=== PATIENT | female | born 1930 | race African-American/Black ===

== ENCOUNTER 2019-02-02 06:31 | Inpatient (IN) | payer MEDICARE, MEDICAID ==
[~2019-02-02] VITALS: Ht 165.1 cm; Wt 86.2 kg
[2019-02-02] MEDS ORDERED: SODIUM CHLORIDE 0.9% 1,000 ML IV ONE (06:56)
[2019-02-02] MEDS ORDERED: KETOROLAC 30MG/ML VIAL IV STA (06:56)
[2019-02-02 08:01] LABS: HEMATOCRIT. 34.4 % (36.0-48.0); MEAN CORPUSCULAR HEMOGLOBIN 28.9 pg (28.0-32.0); PLATELET 207 x1000/uL (130-400); RED BLOOD CELL COUNT 3.82 mill/uL (4.2-5.4); RED CELL DISTRIBUTION WIDTH 14.5 % (11.6-14.6)
[2019-02-02 08:05] LABS: CHLORIDE 95 mEq/L (98-107)
[2019-02-02 08:06] LABS: INR 1.1
[2019-02-02 08:14] LABS: CREATINE KINASE 766 IU/L (26-192)
[2019-02-02 08:27] LABS: PLATELET ESTIMATE NORMAL
[2019-02-02] MEDS ORDERED: MORPHINE SULFATE 4 MG/ML CPJ (NOT FOR IM USE) IV ONE (10:00)
[2019-02-02 10:01] LABS: CLARITY URINE CLOUDY (CLEAR); COLOR URINE YELLOW (YELLOW); KETONES URINE NEGATIVE (NEGATIVE); LEUKOCYTE ESTERASE URINE TRACE (NEGATIVE); NITRITE URINE NEGATIVE (NEGATIVE); OCCULT BLOOD URINE 2+ (NEGATIVE); PROTEIN URINE 2+ (NEGATIVE); SPECIFIC GRAVITY URINE 1.016 (1.005-1.030); UROBILINOGEN URINE 0.2 E.U./dL (0.2-1.0)
[2019-02-02] MEDS ORDERED: IPRATROPIUM/ALBUTEROL 0.5-3(2.5)MG/3ML NEB HHN PRN (11:15)
[2019-02-02] MEDS ORDERED: NITROGLYCERIN 0.4MG TABLET SL SL PRN ×2 (11:15→11:30)
[2019-02-02] MEDS ORDERED: GUAIFENESIN 200MG/10ML SUGAR FREE UDC PO PRN (11:15)
[2019-02-02] MEDS ORDERED: LEVOFLOXACIN 500MG PREMIX 100 ML IV SCH (11:15)
[2019-02-02] MEDS ORDERED: DOCUSATE SODIUM 100MG CAPSULE PO PRN (11:15)
[2019-02-02] MEDS ORDERED: ONDANSETRON HCL 4MG/2ML INJ IV PRN (11:15)
[2019-02-02] MEDS ORDERED: MAGNESIUM/ALUMINUM HYDROXIDE/SIMETHICONE 30ML UDC PO PRN (11:15)
[2019-02-02] MEDS ORDERED: DEXTROSE 50% WATER 50ML SYRINGE IV PRN (11:15)
[2019-02-02] MEDS: CEFTRIAXONE 1 G PREMIX 50 ML IV SCH (11:51)
[2019-02-02] MEDS: SODIUM CHLORIDE 0.9% 1,000 ML IV SCH (11:51)
[2019-02-02] MEDS: FAMOTIDINE 20MG TABLET PO SCH (11:55)
[2019-02-02] MEDS: ZINC SULFATE 220 MG ( 50 ) CAPSULE PO SCH (11:55)
[2019-02-02] MEDS: ASPIRIN 325MG EC TABLET PO SCH (11:55)
[2019-02-02] MEDS: ENOXAPARIN 30MG/0.3ML SYR SUBCUT SCH (11:56)
[2019-02-02 12:00] VITALS: BP 135/66
[2019-02-02] MEDS: BLOOD SUGAR DIAGNOSTIC STRIP TEST SCH ×3 (12:40→20:05)
[2019-02-02] MEDS: TRAMADOL 50MG TABLET PO PRN ×2 (12:44→20:06)
[2019-02-02 12:55] LABS: T4 FREE 1.77 ng/dL (0.76-1.46)
[2019-02-02] MEDS ORDERED: LEVOFLOXACIN 500MG PREMIX 100 ML IV NR (13:00)
[2019-02-02] MEDS: INSULIN LISPRO 100 UNITS/ML SUBCUT SCH ×3 (13:10→21:00)
[2019-02-02 14:18] LABS: SODIUM URINE RANDOM 37 mEq/L
[2019-02-02 15:30] VITALS: BP 160/99
[2019-02-02 16:00] VITALS: BP 178/84
[2019-02-02] MEDS ORDERED: ASPI-1393 PO (18:09)
[2019-02-02] MEDS ORDERED: ACET-2708 PO (18:09)
[2019-02-02] MEDS ORDERED: BENA20TA10 PO (18:09)
[2019-02-02] MEDS ORDERED: DOCU-138 PO (18:09)
[2019-02-02] MEDS ORDERED: FERR325T6 PO (18:09)
[2019-02-02] MEDS ORDERED: NIFE60TA64 PO (18:09)
[2019-02-02 18:44] LABS: CREATINE KINASE 607 IU/L (26-192)
[2019-02-02 18:45] LABS: CREATINE KINASE MB FRACTION 12.1 ng/mL (0.5-3.6)
[2019-02-02 19:57] LABS: FOLIC ACID (FOLATE) SERUM 5.9 ng/mL (>5.38)
[2019-02-02 20:00] VITALS: BP 152/70
[2019-02-02] MEDS: ASCORBIC ACID 500 MG TABLET PO SCH (20:06)
[2019-02-03] VITALS: BP 162/74
[2019-02-03 00:19] LABS: CREATINE KINASE 589 IU/L (26-192)
[2019-02-03 00:20] LABS: CREATINE KINASE MB FRACTION 9.9 ng/mL (0.5-3.6)
[2019-02-03 04:00] VITALS: BP 159/91
[2019-02-03] MEDS: SODIUM CHLORIDE 0.9% 1,000 ML IV SCH ×3 (05:18→17:33)
[2019-02-03] MEDS: TRAMADOL 50MG TABLET PO PRN ×3 (05:19→20:05)
[2019-02-03 07:30] LABS: BASOPHILS % 0.5 % (0.0-2.0); EOSINOPHILS % 0.6 % (0.0-5.0); HEMATOCRIT. 32.2 % (36.0-48.0); HEMOGLOBIN. 10.6 g/dL (12.0-16.0); LYMPHOCYTES % 8.1 % (20.0-50.0); MEAN CORPUSCULAR HEMOGLOBIN 29.5 pg (28.0-32.0); MEAN CORPUSCULAR VOLUME 89.7 fL (81.0-99.0); MEAN PLATELET VOLUME 9.1 fl (7.4-10.4); NEUTROPHILS % 83.8 % (40.0-76.0); PLATELET 244 x1000/uL (130-400); RED BLOOD CELL COUNT 3.59 mill/uL (4.2-5.4); RED CELL DISTRIBUTION WIDTH 14.6 % (11.6-14.6)
[2019-02-03 08:00] VITALS: BP 150/66
[2019-02-03] MEDS: BLOOD SUGAR DIAGNOSTIC STRIP TEST SCH ×4 (08:01→20:06)
[2019-02-03] MEDS: INSULIN LISPRO 100 UNITS/ML SUBCUT SCH ×4 (08:01→20:06)
[2019-02-03 08:02] LABS: PHOSPHORUS 3.4 mg/dL (2.5-4.9)
[2019-02-03] MEDS: ASCORBIC ACID 500 MG TABLET PO SCH ×2 (08:46→20:05)
[2019-02-03] MEDS: ZINC SULFATE 220 MG ( 50 ) CAPSULE PO SCH (08:46)
[2019-02-03] MEDS: FAMOTIDINE 20MG TABLET PO SCH (08:46)
[2019-02-03] MEDS: ASPIRIN 325MG EC TABLET PO SCH (08:46)
[2019-02-03] MEDS: ENOXAPARIN 30MG/0.3ML SYR SUBCUT SCH (08:46)
[2019-02-03 12:00] VITALS: BP 182/88
[2019-02-03] MEDS: CEFTRIAXONE 1 G PREMIX 50 ML IV SCH (12:12)
[2019-02-03] MEDS: CLONIDINE 0.1MG TABLET PO PRN ×2 (12:15→20:05)
[2019-02-03 16:22] VITALS: BP 148/61
[2019-02-03 20:00] VITALS: BP 169/67
[2019-02-04 00:05] VITALS: BP 129/71
[2019-02-04 04:00] VITALS: BP 165/79
[2019-02-04] MEDS: CLONIDINE 0.1MG TABLET PO PRN ×2 (05:22→08:15)
[2019-02-04] MEDS: SODIUM CHLORIDE 0.9% 1,000 ML IV SCH (05:22)
[2019-02-04] MEDS: BLOOD SUGAR DIAGNOSTIC STRIP TEST SCH ×4 (05:27→21:07)
[2019-02-04 07:34] LABS: BASOPHILS % 0.6 % (0.0-2.0); EOSINOPHILS % 1.1 % (0.0-5.0); HEMATOCRIT. 32.6 % (36.0-48.0); HEMOGLOBIN. 10.5 g/dL (12.0-16.0); LYMPHOCYTES % 9.9 % (20.0-50.0); MEAN CORPUSCULAR HEMOGLOBIN 29.5 pg (28.0-32.0); MEAN CORPUSCULAR VOLUME 91.6 fL (81.0-99.0); MONOCYTES % 9.7 % (2.0-8.0); NEUTROPHILS % 78.7 % (40.0-76.0); PLATELET 236 x1000/uL (130-400); RED BLOOD CELL COUNT 3.56 mill/uL (4.2-5.4); RED CELL DISTRIBUTION WIDTH 14.5 % (11.6-14.6)
[2019-02-04 07:43] LABS: PHOSPHORUS 2.7 mg/dL (2.5-4.9)
[2019-02-04] MEDS: INSULIN LISPRO 100 UNITS/ML SUBCUT SCH ×4 (08:10→21:00)
[2019-02-04] MEDS: FAMOTIDINE 20MG TABLET PO SCH (08:14)
[2019-02-04] MEDS: ASPIRIN 325MG EC TABLET PO SCH (08:14)
[2019-02-04] MEDS: ENOXAPARIN 30MG/0.3ML SYR SUBCUT SCH (08:14)
[2019-02-04] MEDS: ZINC SULFATE 220 MG ( 50 ) CAPSULE PO SCH (08:15)
[2019-02-04] MEDS: ASCORBIC ACID 500 MG TABLET PO SCH ×2 (08:15→21:07)
[2019-02-04] MEDS ORDERED: NIFEDIPINE XL 60MG TAB PO SCH (09:15)
[2019-02-04] MEDS: NIFEDIPINE XL 60MG TAB PO SCH ×2 (10:00→21:07)
[2019-02-04 10:13] LABS: CREATINE KINASE 291 IU/L (26-192)
[2019-02-04 10:22] VITALS: BP 235/102
[2019-02-04 12:21] VITALS: BP 128/49
[2019-02-04] MEDS ORDERED: LEVOFLOXACIN 250MG PREMIX 50 ML IV SCH (13:00)
[2019-02-04 16:05] VITALS: BP 173/66
[2019-02-04] MEDS: CEFTRIAXONE 1 G PREMIX 50 ML IV SCH (16:15)
[2019-02-04] MEDS ORDERED: NA PHOS,M-B/NA PHOS,DI-BA ENEMA 118ML PR NR (17:30)
[2019-02-04] MEDS: DOCUSATE SODIUM 100MG CAPSULE PO SCH (18:58)
[2019-02-04] MEDS: LACTULOSE 20G/30ML UDC PO SCH ×2 (18:59→21:07)
[2019-02-04 20:00] VITALS: BP 157/63
[2019-02-04] MEDS: ZOLPIDEM TARTRATE 5MG TABLET PO PRN (21:07)
[2019-02-05] VITALS (7 sets, daily range): BP systolic 91–188; BP diastolic 58–85
[2019-02-05] MEDS: CLONIDINE 0.1MG TABLET PO PRN ×2 (00:27→09:13)
[2019-02-05 07:19] LABS: BASOPHILS % 0.3 % (0.0-2.0); EOSINOPHILS % 0.1 % (0.0-5.0); HEMATOCRIT. 32.2 % (36.0-48.0); HEMOGLOBIN. 10.8 g/dL (12.0-16.0); LYMPHOCYTES % 8.8 % (20.0-50.0); MEAN CORPUSCULAR HEMOGLOBIN 29.8 pg (28.0-32.0); MEAN CORPUSCULAR VOLUME 89.1 fL (81.0-99.0); MEAN PLATELET VOLUME 8.4 fl (7.4-10.4); MONOCYTES % 13.2 % (2.0-8.0); NEUTROPHILS % 77.6 % (40.0-76.0); PLATELET 279 x1000/uL (130-400); RED BLOOD CELL COUNT 3.62 mill/uL (4.2-5.4); RED CELL DISTRIBUTION WIDTH 14.4 % (11.6-14.6)
[2019-02-05] MEDS: INSULIN LISPRO 100 UNITS/ML SUBCUT SCH ×4 (08:10→21:00)
[2019-02-05] MEDS: BLOOD SUGAR DIAGNOSTIC STRIP TEST SCH ×4 (08:11→21:34)
[2019-02-05 08:17] LABS: CHLORIDE 105 mEq/L (98-107)
[2019-02-05 08:22] LABS: PHOSPHORUS 2.8 mg/dL (2.5-4.9)
[2019-02-05] MEDS ORDERED: NA PHOS,M-B/NA PHOS,DI-BA ENEMA 118ML PR PRN (09:00)
[2019-02-05] MEDS: POLYETHYLENE GLYCOL 3350 (17GM) 1 DOSE PACK PO SCH (09:05)
[2019-02-05] MEDS: ENOXAPARIN 40MG/0.4ML SYR SUBCUT SCH (09:05)
[2019-02-05] MEDS: LACTULOSE 20G/30ML UDC PO SCH (09:06)
[2019-02-05] MEDS: DOCUSATE SODIUM 100MG CAPSULE PO SCH ×2 (09:07→16:03)
[2019-02-05] MEDS: ZINC SULFATE 220 MG ( 50 ) CAPSULE PO SCH (09:07)
[2019-02-05] MEDS: NIFEDIPINE XL 60MG TAB PO SCH ×2 (09:07→21:33)
[2019-02-05] MEDS: ASPIRIN 325MG EC TABLET PO SCH (09:08)
[2019-02-05] MEDS: ASCORBIC ACID 500 MG TABLET PO SCH ×2 (09:08→21:33)
[2019-02-05] MEDS: FAMOTIDINE 20MG TABLET PO SCH (12:05)
[2019-02-05] MEDS: CEFTRIAXONE 1 G PREMIX 50 ML IV SCH (12:05)
[2019-02-05] MEDS: HYDRALAZINE HCL 50MG TABLET PO SCH ×2 (13:34→22:54)
[2019-02-05] MEDS: LEVOFLOXACIN 250MG PREMIX 50 ML IV SCH (16:04)
[2019-02-05] MEDS ORDERED: NA PHOS,M-B/NA PHOS,DI-BA ENEMA 118ML PR NR (18:00)
[2019-02-05] MEDS ORDERED: SORBITOL 70% SOLN 30ML PO NR (18:00)
[2019-02-05] MEDS: ZOLPIDEM TARTRATE 5MG TABLET PO PRN (21:34)
[2019-02-05] MEDS: DOXAZOSIN MESYLATE 4MG TABLET PO SCH (21:34)
[2019-02-06] VITALS: BP 111/41
[2019-02-06 04:00] VITALS: BP 129/71
[2019-02-06] MEDS: HYDRALAZINE HCL 50MG TABLET PO SCH ×3 (06:35→21:20)
[2019-02-06] MEDS: BLOOD SUGAR DIAGNOSTIC STRIP TEST SCH ×4 (06:35→21:21)
[2019-02-06] MEDS: INSULIN LISPRO 100 UNITS/ML SUBCUT SCH ×4 (06:35→21:21)
[2019-02-06 07:00] LABS: BASOPHILS % 0.4 % (0.0-2.0); EOSINOPHILS % 0.1 % (0.0-5.0); HEMATOCRIT. 29.9 % (36.0-48.0); HEMOGLOBIN. 9.9 g/dL (12.0-16.0); LYMPHOCYTES % 7.6 % (20.0-50.0); MEAN CORPUSCULAR HEMOGLOBIN 29.5 pg (28.0-32.0); MEAN CORPUSCULAR VOLUME 89.6 fL (81.0-99.0); MEAN PLATELET VOLUME 8.2 fl (7.4-10.4); MONOCYTES % 11.5 % (2.0-8.0); NEUTROPHILS % 80.4 % (40.0-76.0); PLATELET 268 x1000/uL (130-400); RED BLOOD CELL COUNT 3.34 mill/uL (4.2-5.4); RED CELL DISTRIBUTION WIDTH 14.6 % (11.6-14.6)
[2019-02-06 07:27] LABS: PHOSPHORUS 3.6 mg/dL (2.5-4.9)
[2019-02-06 08:00] VITALS: BP 105/48
[2019-02-06] MEDS: NIFEDIPINE XL 60MG TAB PO SCH ×2 (08:53→21:21)
[2019-02-06] MEDS: POLYETHYLENE GLYCOL 3350 (17GM) 1 DOSE PACK PO SCH (09:01)
[2019-02-06] MEDS: FAMOTIDINE 20MG TABLET PO SCH (09:01)
[2019-02-06] MEDS: TRAMADOL 50MG TABLET PO PRN (09:01)
[2019-02-06] MEDS: ASPIRIN 325MG EC TABLET PO SCH (09:01)
[2019-02-06] MEDS: ZINC SULFATE 220 MG ( 50 ) CAPSULE PO SCH (09:01)
[2019-02-06] MEDS: ASCORBIC ACID 500 MG TABLET PO SCH ×2 (09:01→21:20)
[2019-02-06] MEDS: DOCUSATE SODIUM 100MG CAPSULE PO SCH ×2 (09:01→16:02)
[2019-02-06] MEDS: ENOXAPARIN 40MG/0.4ML SYR SUBCUT SCH (09:02)
[2019-02-06 12:00] VITALS: BP 131/61
[2019-02-06] MEDS: CEFTRIAXONE 1 G PREMIX 50 ML IV SCH (12:06)
[2019-02-06 16:00] VITALS: BP 110/62
[2019-02-06] MEDS: LEVOFLOXACIN 250MG PREMIX 50 ML IV SCH (16:05)
[2019-02-06] MEDS ORDERED: BISACODYL 10MG SUPP PR NR (17:30)
[2019-02-06] MEDS: LACTULOSE 20G/30ML UDC PO SCH ×2 (17:55→21:22)
[2019-02-06 20:00] VITALS: BP 140/55
[2019-02-06] MEDS: DOXAZOSIN MESYLATE 4MG TABLET PO SCH (21:20)
[2019-02-06] MEDS ORDERED: DIGOXIN 500MCG/2ML AMP IV NR (22:00)
[2019-02-06] MEDS ORDERED: METHYLPREDNISOLONE SOD SUCC 125 MG/2 ML VIAL IV SCH (22:00)
[2019-02-07] VITALS: BP 105/53
[2019-02-07] MEDS: METHYLPREDNISOLONE SOD SUCC 40 MG/ML VIAL IV SCH ×4 (00:31→18:14)
[2019-02-07 04:00] VITALS: BP 112/41
[2019-02-07] MEDS: HYDRALAZINE HCL 50MG TABLET PO SCH ×3 (05:54→22:03)
[2019-02-07 06:02] LABS: HEMATOCRIT. 30.1 % (36.0-48.0); MEAN CORPUSCULAR HEMOGLOBIN 29.5 pg (28.0-32.0); MEAN CORPUSCULAR VOLUME 88.7 fL (81.0-99.0); MEAN PLATELET VOLUME 8.1 fl (7.4-10.4); PLATELET 327 x1000/uL (130-400); RED BLOOD CELL COUNT 3.39 mill/uL (4.2-5.4); RED CELL DISTRIBUTION WIDTH 14.5 % (11.6-14.6)
[2019-02-07 06:10] LABS: PHOSPHORUS 5.5 mg/dL (2.5-4.9)
[2019-02-07] MEDS: BLOOD SUGAR DIAGNOSTIC STRIP TEST SCH ×4 (06:17→20:42)
[2019-02-07 08:00] VITALS: BP 93/47
[2019-02-07] MEDS: INSULIN LISPRO 100 UNITS/ML SUBCUT SCH ×4 (08:10→20:42)
[2019-02-07] MEDS: POLYETHYLENE GLYCOL 3350 (17GM) 1 DOSE PACK PO SCH (09:00)
[2019-02-07] MEDS: LACTULOSE 20G/30ML UDC PO SCH (09:39)
[2019-02-07] MEDS: ZINC SULFATE 220 MG ( 50 ) CAPSULE PO SCH (09:39)
[2019-02-07] MEDS: FAMOTIDINE 20MG TABLET PO SCH (09:40)
[2019-02-07] MEDS: NIFEDIPINE XL 60MG TAB PO SCH ×2 (09:40→20:44)
[2019-02-07] MEDS: DOCUSATE SODIUM 100MG CAPSULE PO SCH ×2 (09:40→16:56)
[2019-02-07] MEDS: ASCORBIC ACID 500 MG TABLET PO SCH ×2 (09:40→20:43)
[2019-02-07] MEDS: ASPIRIN 325MG EC TABLET PO SCH (09:41)
[2019-02-07] MEDS: SODIUM CHLORIDE 0.9% 1,000 ML IV SCH (11:30)
[2019-02-07] MEDS: CEFTRIAXONE 1 G PREMIX 50 ML IV SCH (11:35)
[2019-02-07] MEDS: ENOXAPARIN 40MG/0.4ML SYR SUBCUT SCH (11:38)
[2019-02-07 12:00] VITALS: BP 159/71
[2019-02-07] MEDS ORDERED: MINERAL OIL ENEMA 133ML PR NR (13:00)
[2019-02-07] MEDS: ACETAMINOPHEN 325MG TABLET PO PRN ×2 (14:50→20:44)
[2019-02-07 16:00] VITALS: BP 97/52
[2019-02-07] MEDS: LEVOFLOXACIN 250MG PREMIX 50 ML IV SCH (16:39)
[2019-02-07 17:56] LABS: PLATELET ESTIMATE NORMAL
[2019-02-07] MEDS: DIGOXIN 125MCG TABLET PO SCH (18:11)
[2019-02-07 20:00] VITALS: BP 123/55
[2019-02-07] MEDS: ZOLPIDEM TARTRATE 5MG TABLET PO PRN (20:43)
[2019-02-07] MEDS ORDERED: DOXAZOSIN MESYLATE 4MG TABLET PO SCH (21:00)
[2019-02-08] VITALS: BP 127/76
[2019-02-08] MEDS: SODIUM CHLORIDE 0.9% 1,000 ML IV SCH ×2 (00:09→14:21)
[2019-02-08] MEDS: METHYLPREDNISOLONE SOD SUCC 40 MG/ML VIAL IV SCH ×5 (00:10→23:04)
[2019-02-08 04:00] VITALS: BP 109/66
[2019-02-08] MEDS: HYDRALAZINE HCL 50MG TABLET PO SCH ×3 (05:54→23:04)
[2019-02-08] MEDS: BLOOD SUGAR DIAGNOSTIC STRIP TEST SCH ×4 (06:02→20:53)
[2019-02-08] MEDS: ACETAMINOPHEN 325MG TABLET PO PRN ×4 (06:07→20:30)
[2019-02-08 08:11] VITALS: BP 132/54
[2019-02-08] MEDS: FAMOTIDINE 20MG TABLET PO SCH (09:13)
[2019-02-08] MEDS: ASCORBIC ACID 500 MG TABLET PO SCH ×2 (09:13→20:55)
[2019-02-08] MEDS: POLYETHYLENE GLYCOL 3350 (17GM) 1 DOSE PACK PO SCH (09:13)
[2019-02-08] MEDS: ASPIRIN 325MG EC TABLET PO SCH (09:13)
[2019-02-08] MEDS: ENOXAPARIN 30MG/0.3ML SYR SUBCUT SCH (09:15)
[2019-02-08] MEDS: ZINC SULFATE 220 MG ( 50 ) CAPSULE PO SCH (09:15)
[2019-02-08] MEDS: DOCUSATE SODIUM 100MG CAPSULE PO SCH ×2 (09:17→17:16)
[2019-02-08] MEDS: NIFEDIPINE XL 60MG TAB PO SCH ×2 (09:21→20:55)
[2019-02-08] MEDS: INSULIN LISPRO 100 UNITS/ML SUBCUT SCH ×4 (09:21→20:53)
[2019-02-08 09:41] LABS: HEMATOCRIT. 30.1 % (36.0-48.0); HEMOGLOBIN. 9.7 g/dL (12.0-16.0); MEAN CORPUSCULAR VOLUME 89.5 fL (81.0-99.0); MEAN PLATELET VOLUME 7.5 fl (7.4-10.4); PLATELET 340 x1000/uL (130-400); RED BLOOD CELL COUNT 3.36 mill/uL (4.2-5.4); RED CELL DISTRIBUTION WIDTH 14.7 % (11.6-14.6)
[2019-02-08 09:49] LABS: INR 1.3; PARTIAL THROMBOPLASTIN TIME 42.7 sec (23.4-31.0); PROTHROMBIN TIME 12.7 sec (9.6-11.0)
[2019-02-08 09:55] LABS: PHOSPHORUS 6.6 mg/dL (2.5-4.9)
[2019-02-08 10:10] LABS: DIGOXIN 1.6 ng/mL (0.9-2.0)
[2019-02-08 11:57] VITALS: BP 137/49
[2019-02-08 12:33] LABS: BG CARBOXYHEMOGLOBIN 0.3 % (0.5-1.5); BG DEOXYHEMOGLOBIN 2.6 % (0.0-5.0); BG FRACTION INSPIRED OXYGEN 21; BG HCO3 ACT 14.9 mmol/L (22.0-26.0); BG METHEMOGLOBIN 0.3 % (0.0-1.5); BG OXYGEN SATURATION 97.4 % (92.0-98.5); BG OXYHEMOGLOBIN 96.8 % (94.0-97.0); BG PCO2 26.5 mmHg (35.0-45.0); BG PH 7.369 (7.350-7.450); BG PO2 98.1 mmHg (75.0-100.0); BG SAMPLE SITE LEFT RADIAL; BG TOTAL HEMOGLOBIN 10.8 g/dL (12.0-18.0); BG VENT MODE ROOM AIR
[2019-02-08] MEDS: CEFTRIAXONE 1 G PREMIX 50 ML IV SCH (12:34)
[2019-02-08] MEDS: METOPROLOL TARTRATE 50MG TABLET PO SCH ×2 (12:39→20:55)
[2019-02-08 13:53] LABS: PLATELET ESTIMATE NORMAL
[2019-02-08 15:43] VITALS: BP 130/52
[2019-02-08] MEDS: LEVOFLOXACIN 250MG PREMIX 50 ML IV SCH (17:13)
[2019-02-08] MEDS: DIGOXIN 125MCG TABLET PO SCH (17:17)
[2019-02-08 20:00] VITALS: BP_SYST 117; BP_SYST 149; BP_DIAS 50; BP_DIAS 59
[2019-02-09] VITALS: BP 108/88
[2019-02-09 04:00] VITALS: BP 115/50
[2019-02-09] MEDS: METHYLPREDNISOLONE SOD SUCC 40 MG/ML VIAL IV SCH ×2 (06:44→11:11)
[2019-02-09] MEDS: SODIUM CHLORIDE 0.9% 1,000 ML IV SCH (06:45)
[2019-02-09] MEDS: HYDRALAZINE HCL 50MG TABLET PO SCH (06:45)
[2019-02-09] MEDS: ACETAMINOPHEN 325MG TABLET PO PRN (06:45)
[2019-02-09 07:09] LABS: HEMATOCRIT. 32.9 % (36.0-48.0); HEMOGLOBIN. 10.9 g/dL (12.0-16.0); MEAN CORPUSCULAR VOLUME 87.9 fL (81.0-99.0); MEAN PLATELET VOLUME 7.4 fl (7.4-10.4); PLATELET 443 x1000/uL (130-400); RED BLOOD CELL COUNT 3.74 mill/uL (4.2-5.4); RED CELL DISTRIBUTION WIDTH 14.6 % (11.6-14.6)
[2019-02-09 07:27] LABS: PHOSPHORUS 5.5 mg/dL (2.5-4.9)
[2019-02-09] MEDS: BLOOD SUGAR DIAGNOSTIC STRIP TEST SCH ×2 (07:40→13:31)
[2019-02-09 08:00] VITALS: BP 136/53
[2019-02-09] MEDS: INSULIN LISPRO 100 UNITS/ML SUBCUT SCH ×2 (08:10→13:10)
[2019-02-09] MEDS ORDERED: ASPIRIN 81MG EC TABLET PO SCH (09:00)
[2019-02-09] MEDS: METOPROLOL TARTRATE 50MG TABLET PO SCH (09:32)
[2019-02-09] MEDS: DOCUSATE SODIUM 100MG CAPSULE PO SCH (09:32)
[2019-02-09] MEDS: FAMOTIDINE 20MG TABLET PO SCH (09:32)
[2019-02-09] MEDS: ENOXAPARIN 30MG/0.3ML SYR SUBCUT SCH (09:32)
[2019-02-09] MEDS: NIFEDIPINE XL 60MG TAB PO SCH (09:32)
[2019-02-09] MEDS: POLYETHYLENE GLYCOL 3350 (17GM) 1 DOSE PACK PO SCH (09:32)
[2019-02-09] MEDS: ASCORBIC ACID 500 MG TABLET PO SCH (09:33)
[2019-02-09] MEDS: ZINC SULFATE 220 MG ( 50 ) CAPSULE PO SCH (09:33)
[2019-02-09] MEDS ORDERED: TRAMADOL 50MG TABLET PO PRN (10:00)
[2019-02-09] MEDS: CEFTRIAXONE 1 G PREMIX 50 ML IV SCH (11:12)
[2019-02-09] MEDS ORDERED: MORPHINE SULFATE 2 MG/ML CPJ (NOT FOR IM USE) IV PRN (11:15)
[2019-02-09 12:00] VITALS: BP 137/52
[2019-02-09 13:47] VITALS: BP 137/52
[2019-02-09] MEDS ORDERED: CITRIC ACID/SODIUM CITRATE SOLN 15ML UDC PO SCH (14:30)
[2019-02-09 16:53] LABS: PLATELET ESTIMATE INCREASED
[2019-02-10 09:11] LABS: ALDOLASE 8.3 U/L (3.3-10.3); GLOMERULAR BASEMENT MEMB AB 3 units (0-20)
[2019-02-10 10:06] LABS: COMPLEMENT C3 172 mg/dL (82-167)
[2019-02-10 13:09] LABS: ANTI-MYELOPEROXIDASE AB < 9.0 U/mL (0.0-9.0); ANTI-PROTEINASE 3 ABS < 3.5 U/mL (0.0-3.5)
[2019-02-10 15:12] LABS: ANA IFA Negative (.)
[2019-02-10] MEDS ORDERED: DIGOXIN 125MCG TABLET PO SCH (18:00)
[2019-02-10 19:11] LABS: ANTI-DNA DOUBLE STRANDED QUANT 1 IU/mL (0-9); ANTI-JO 1 ABS <0.2 AI (0.0-0.9); RNP ANTIBODY < 0.2 AI (0.0-0.9); SMITH ANTIBODY < 0.2 AI (0.0-0.9)
[2019-02-11 04:12] LABS: CYC CITRULLINATED PEP IgG/IgA 10 units (0-19)
[2019-02-11 15:11] LABS: CYTOPLASMIC C-ANCA <1:20 titer (Neg:<1:20); PERINUCLEAR P-ANCA <1:20 titer (Neg:<1:20)
== END 2019-02-09 15:09 | DRG 871 ==
LOC: ER 06:31 → 7WST 09:57 → ENRESERV 10:15
PROVIDERS: ADMIT Internal Medicine; ATTEND Internal Medicine
DX: A41.9 Sepsis, unspecified organism (principal); G82.50 Quadriplegia, unspecified; N17.9 Acute kidney failure, unspecified; E22.2 Syndrome of inappropriate secretion of antidiuretic hormone; E44.1 Mild protein-calorie malnutrition; M62.82 Rhabdomyolysis; N13.6 Pyonephrosis; I12.9 Hypertensive chronic kidney disease with stage 1 through stage 4 chronic kidney disease, or unspecified chronic kidney disease; D63.8 Anemia in other chronic diseases classified elsewhere; E11.22 Type 2 diabetes mellitus with diabetic chronic kidney disease; E66.9 Obesity, unspecified; M17.0 Bilateral primary osteoarthritis of knee; N18.3 Chronic kidney disease, stage 3 (moderate); E11.51 Type 2 diabetes mellitus with diabetic peripheral angiopathy without gangrene; E78.5 Hyperlipidemia, unspecified; I48.0 Paroxysmal atrial fibrillation; I51.7 Cardiomegaly; M19.019 Primary osteoarthritis, unspecified shoulder; R26.9 Unspecified abnormalities of gait and mobility; R41.89 Other symptoms and signs involving cognitive functions and awareness; M47.9 Spondylosis, unspecified; M60.9 Myositis, unspecified; Z79.4 Long term (current) use of insulin; Z82.49 Family history of ischemic heart disease and other diseases of the circulatory system; Z68.31 Body mass index [BMI] 31.0-31.9, adult; Z83.3 Family history of diabetes mellitus; Z79.899 Other long term (current) drug therapy; Z79.82 Long term (current) use of aspirin
CPT/HCPCS: 36415; 36600; 70551; 71045; 72170; 72192; 73521; 73562; 73700; 74018; 76770; 80048; 80061; 80162; 81003; 82085; 82375; 82533; 82550; 82553; 82607; 82746; 82805; 82962; 83036; 83520; 83540; 83550; 83605; 83735; 83930; 83935; 84100; 84300; 84439; 84443; 84484; 85651; 86140; 86160; 86200; 86225; 86235; 86256; 86431; 92610; 93005; 93306; 93923; 93970; 97162; 97166; 99285; C1893; J0696; J1160; J1650; J1815; J1885; J1956; J2270; J2920; J7030; A4315

== ENCOUNTER 2019-06-14 08:13 | Inpatient (IN) | payer MEDICARE, MEDICAID ==
[2019-06-14] VITALS (28 sets, daily range): BP systolic 94–128; BP diastolic 28–63
[~2019-06-14] VITALS: Ht 170.2 cm; Wt 93.4 kg
[~2019-06-14 08:13] MED LIST: ACET-2708 PO; ASPI-1497 PO; BENA20TA10 PO; DOCU-138 PO; FERR325T6 PO; NIFE-32 PO
[2019-06-14] MEDS ORDERED: IPRATROPIUM BROMIDE (0.02%) 0.5MG/2.5ML NEB HHN STA (08:51)
[2019-06-14] MEDS ORDERED: ALBUTEROL (0.083%) 2.5MG/3ML NEB HHN STA (08:51)
[2019-06-14] MEDS ORDERED: LEVOFLOXACIN 500MG PREMIX 100 ML IV ONE (09:00)
[2019-06-14] MEDS ORDERED: PIPERACILLIN/TAZ 3.375G PREMIX 50 ML IV ONE (09:00)
[2019-06-14] MEDS ORDERED: SODIUM CHLORIDE 0.9% 1000ML BAG (SEPSIS BOLUS) IV ONE (09:00)
[2019-06-14 09:12] LABS: BASOPHILS % 1.1 % (0.0-2.0); EOSINOPHILS % 1.5 % (0.0-5.0); LYMPHOCYTES % 9.4 % (20.0-50.0); MEAN CORPUSCULAR HEMOGLOBIN 24.9 pg (28.0-32.0); MEAN CORPUSCULAR VOLUME 84.7 fL (81.0-99.0); MEAN PLATELET VOLUME 9.4 fl (7.4-10.4); MONOCYTES % 4.5 % (2.0-8.0); NEUTROPHILS % 83.5 % (40.0-76.0); PLATELET 266 x1000/uL (130-400); RED BLOOD CELL COUNT 2.14 mill/uL (4.2-5.4); RED CELL DISTRIBUTION WIDTH 18.5 % (11.6-14.6)
[2019-06-14 09:16] LABS: HEMOGLOBIN. 5.3 g/dL (12.0-16.0)
[2019-06-14 09:17] LABS: HEMATOCRIT. 18.1 % (36.0-48.0)
[2019-06-14 09:20] LABS: CHLORIDE 123 mEq/L (98-107)
[2019-06-14 09:48] LABS: INR 1.1; PROTHROMBIN TIME 11.1 sec (9.6-11.0)
[2019-06-14 10:03] LABS: TOTAL IRON BINDING CAPACITY 170 ug/dL (250-450)
[2019-06-14] MEDS ORDERED: LORAZEPAM 2MG/ML CPJ IV ONE (10:15)
[2019-06-14] MEDS ORDERED: ETOMIDATE 2MG/ML 10ML VIAL IV ONE ×2 (10:15→10:32)
[2019-06-14] MEDS ORDERED: SUCCINYLCHOLINE CHLORIDE 200MG/10ML IV ONE ×2 (10:15→10:32)
[2019-06-14] MEDS ORDERED: VECURONIUM BROMIDE 10 MG/VIAL IV ONE ×2 (10:32→10:45)
[2019-06-14] MEDS ORDERED: SODIUM CHLORIDE 0.9% 10ML VIAL ONE (10:32)
[2019-06-14] MEDS ORDERED: MIDAZOLAM HCL 50 MG in DEXTROSE 5% WATER 40 ML IV ONE ×4 (10:45)
[2019-06-14] MEDS ORDERED: PANTOPRAZOLE SODIUM 40 MG/VIAL IV ONE (11:15)
[2019-06-14 11:28] LABS: BG BASE EXCESS -1.9 mmol/L (-2.0-2.0); BG CARBOXYHEMOGLOBIN 0.5 % (0.5-1.5); BG HCO3 ACT 23.1 mmol/L (22.0-26.0); BG METHEMOGLOBIN 0.2 % (0.0-1.5); BG OXYHEMOGLOBIN 96.3 % (94.0-97.0); BG PCO2 40.5 mmHg (35.0-45.0); BG PH 7.374 (7.350-7.450); BG PO2 106.9 mmHg (75.0-100.0); BG SAMPLE SITE RIGHT BRACHIAL; BG TIDAL VOLUME(mL) 500 mL; BG TOTAL HEMOGLOBIN 6.9 g/dL (12.0-18.0); BG VENT MODE VENT - A/C; BG VENT RATE 14 set
[2019-06-14 13:42] LABS: CLARITY URINE TURBID (CLEAR); COLOR URINE YELLOW (YELLOW); KETONES URINE NEGATIVE (NEGATIVE); LEUKOCYTE ESTERASE URINE 3+ (NEGATIVE); NITRITE URINE NEGATIVE (NEGATIVE); OCCULT BLOOD URINE NEGATIVE (NEGATIVE); PROTEIN URINE 2+ (NEGATIVE); SPECIFIC GRAVITY URINE 1.018 (1.005-1.030); UROBILINOGEN URINE 0.2 E.U./dL (0.2-1.0)
[2019-06-14] MEDS ORDERED: ONDANSETRON HCL 4MG/2ML INJ IV PRN (17:45)
[2019-06-14] MEDS ORDERED: DIPHENHYDRAMINE 50MG/ML VIAL IV PRN (17:45)
[2019-06-14] MEDS: BLOOD SUGAR DIAGNOSTIC STRIP TEST SCH (18:00)
[2019-06-14] MEDS ORDERED: INSULIN LISPRO 100 UNITS/ML SUBCUT SCH (18:20)
[2019-06-14] MEDS: DEXT 5%/0.2% NACL 1,000 ML IV SCH (19:03)
[2019-06-14 19:22] LABS: MEAN CORPUSCULAR HEMOGLOBIN 26.7 pg (28.0-32.0); MEAN CORPUSCULAR VOLUME 85.1 fL (81.0-99.0); PLATELET 173 x1000/uL (130-400); RED BLOOD CELL COUNT 2.41 mill/uL (4.2-5.4); RED CELL DISTRIBUTION WIDTH 17.2 % (11.6-14.6)
[2019-06-14 19:40] LABS: HEMATOCRIT 20.5 % (36.0-48.0); HEMOGLOBIN 6.4 g/dL (12.0-16.0)
[2019-06-14] MEDS: IPRATROPIUM/ALBUTEROL 0.5-3(2.5)MG/3ML NEB HHN SCH (20:00)
[2019-06-14] MEDS: MEROPENEM 1,000 MG in SODIUM CHLORIDE 0.9% 100 ML IV SCH (20:59)
[2019-06-14] MEDS: MIDAZOLAM HCL 50 MG in DEXTROSE 5% WATER 40 ML IV PRN (21:01)
[2019-06-14] MEDS ORDERED: INSULIN GLARGINE UD 100 UNITS/ML SYR SUBCUT SCH (22:00)
[2019-06-14 22:19] LABS: BG BASE EXCESS -0.2 mmol/L (-2.0-2.0); BG CARBOXYHEMOGLOBIN 0.8 % (0.5-1.5); BG DEOXYHEMOGLOBIN 1.9 % (0.0-5.0); BG FRACTION INSPIRED OXYGEN 60; BG HCO3 ACT 24.6 mmol/L (22.0-26.0); BG METHEMOGLOBIN 0.3 % (0.0-1.5); BG OXYGEN SATURATION 98.1 % (92.0-98.5); BG PH 7.396 (7.350-7.450); BG PO2 127.5 mmHg (75.0-100.0); BG SAMPLE SITE LEFT RADIAL; BG TIDAL VOLUME(mL) 500 mL; BG TOTAL HEMOGLOBIN 7.5 g/dL (12.0-18.0); BG VENT MODE VENT - A/C; BG VENT RATE 14 set
[2019-06-14] MEDS ORDERED: SUCRALFATE 1 G/10 ML UDC PO NR (22:30)
[2019-06-14 23:37] LABS: HEMATOCRIT 23.3 % (36.0-48.0); HEMOGLOBIN 7.3 g/dL (12.0-16.0)
[2019-06-15] VITALS (41 sets, daily range): BP systolic 94–149; BP diastolic 14–78
[2019-06-15] MEDS ORDERED: VANCOMYCIN 1250MG in DEXTROSE 5% WATER 250ML IV NR ×2
[2019-06-15] MEDS: BLOOD SUGAR DIAGNOSTIC STRIP TEST SCH ×5 (00:15→23:55)
[2019-06-15] MEDS: ACETAMINOPHEN 650MG/20.3ML UDC GT PRN ×2 (00:23→20:54)
[2019-06-15] MEDS: METOCLOPRAMIDE HCL 10MG/2ML VIAL IV SCH ×5 (00:23→23:59)
[2019-06-15] MEDS ORDERED: SUCRALFATE 1 G/10 ML UDC PO NR ×3 (00:30→06:30)
[2019-06-15] MEDS: IPRATROPIUM/ALBUTEROL 0.5-3(2.5)MG/3ML NEB HHN SCH ×4 (01:54→20:39)
[2019-06-15] MEDS: MEROPENEM 1,000 MG in SODIUM CHLORIDE 0.9% 100 ML IV SCH ×3 (03:38→20:54)
[2019-06-15] MEDS: DEXT 5%/0.2% NACL 1,000 ML IV SCH ×3 (03:38→23:59)
[2019-06-15] MEDS: INSULIN LISPRO 100 UNITS/ML SUBCUT SCH ×5 (06:00→23:55)
[2019-06-15] MEDS ORDERED: SUCRALFATE 1 G/10 ML UDC PO SCH (06:15)
[2019-06-15 06:55] LABS: BASOPHILS % 0.3 % (0.0-2.0); EOSINOPHILS % 1.8 % (0.0-5.0); HEMATOCRIT. 23.8 % (36.0-48.0); HEMOGLOBIN. 7.6 g/dL (12.0-16.0); LYMPHOCYTES % 10.7 % (20.0-50.0); MEAN CORPUSCULAR HEMOGLOBIN 27.5 pg (28.0-32.0); MEAN CORPUSCULAR VOLUME 85.9 fL (81.0-99.0); MEAN PLATELET VOLUME 8.7 fl (7.4-10.4); NEUTROPHILS % 80.2 % (40.0-76.0); PLATELET 128 x1000/uL (130-400); RED BLOOD CELL COUNT 2.76 mill/uL (4.2-5.4); RED CELL DISTRIBUTION WIDTH 16.5 % (11.6-14.6)
[2019-06-15] MEDS: SUCRALFATE 1 G/10 ML UDC PO SCH ×4 (07:04→20:54)
[2019-06-15 07:23] LABS: CHLORIDE 129 mEq/L (98-107)
[2019-06-15 07:29] LABS: PHOSPHORUS 3.1 mg/dL (2.5-4.9)
[2019-06-15 08:56] LABS: BG BASE EXCESS -2.5 mmol/L (-2.0-2.0); BG CARBOXYHEMOGLOBIN 0.3 % (0.5-1.5); BG DEOXYHEMOGLOBIN 1.1 % (0.0-5.0); BG FRACTION INSPIRED OXYGEN 60; BG HCO3 ACT 21.8 mmol/L (22.0-26.0); BG METHEMOGLOBIN 0.3 % (0.0-1.5); BG OXYGEN SATURATION 98.9 % (92.0-98.5); BG OXYHEMOGLOBIN 98.3 % (94.0-97.0); BG PCO2 35.4 mmHg (35.0-45.0); BG PH 7.407 (7.350-7.450); BG PO2 185.3 mmHg (75.0-100.0); BG SAMPLE SITE RIGHT RADIAL; BG TIDAL VOLUME(mL) 500 mL; BG TOTAL HEMOGLOBIN 8.9 g/dL (12.0-18.0); BG VENT MODE VENT - A/C; BG VENT RATE 14 set
[2019-06-15] MEDS ORDERED: PANTOPRAZOLE SODIUM 40 MG/VIAL IV SCH (09:00)
[2019-06-15] MEDS: INSULIN GLARGINE UD 100 UNITS/ML SYR SUBCUT SCH ×2 (09:44→22:37)
[2019-06-15] MEDS ORDERED: KCL 20MEQ/100ML PREMIX 100 ML IV NR (10:00)
[2019-06-15 11:37] LABS: HEMATOCRIT 25.7 % (36.0-48.0); HEMOGLOBIN 8.2 g/dL (12.0-16.0)
[2019-06-15] MEDS ORDERED: VANCOMYCIN 1 G PREMIX 200 ML IV SCH (14:00)
[2019-06-15] MEDS: VANCOMYCIN 1 G PREMIX 200 ML IV SCH (17:30)
[2019-06-15] MEDS: PANTOPRAZOLE SODIUM 40 MG/VIAL IV SCH (17:30)
[2019-06-16] VITALS (27 sets, daily range): BP systolic 120–145; BP diastolic 45–111
[2019-06-16] MEDS: IPRATROPIUM/ALBUTEROL 0.5-3(2.5)MG/3ML NEB HHN SCH ×4 (02:19→20:27)
[2019-06-16] MEDS: MEROPENEM 1,000 MG in SODIUM CHLORIDE 0.9% 100 ML IV SCH ×3 (03:41→20:59)
[2019-06-16 05:55] LABS: BASOPHILS % 0.3 % (0.0-2.0); EOSINOPHILS % 4.6 % (0.0-5.0); HEMATOCRIT. 25.6 % (36.0-48.0); HEMOGLOBIN. 8.1 g/dL (12.0-16.0); LYMPHOCYTES % 14.3 % (20.0-50.0); MEAN CORPUSCULAR HEMOGLOBIN 27.5 pg (28.0-32.0); MEAN CORPUSCULAR VOLUME 86.6 fL (81.0-99.0); MEAN PLATELET VOLUME 8.9 fl (7.4-10.4); MONOCYTES % 6.3 % (2.0-8.0); NEUTROPHILS % 74.5 % (40.0-76.0); PLATELET 108 x1000/uL (130-400); RED BLOOD CELL COUNT 2.96 mill/uL (4.2-5.4); RED CELL DISTRIBUTION WIDTH 17.1 % (11.6-14.6)
[2019-06-16] MEDS: INSULIN LISPRO 100 UNITS/ML SUBCUT SCH ×3 (06:00→17:36)
[2019-06-16] MEDS: BLOOD SUGAR DIAGNOSTIC STRIP TEST SCH ×3 (06:02→17:36)
[2019-06-16 06:16] LABS: CHLORIDE 115 mEq/L (98-107)
[2019-06-16] MEDS: METOCLOPRAMIDE HCL 10MG/2ML VIAL IV SCH ×3 (06:32→17:35)
[2019-06-16 08:00] LABS: BG BASE EXCESS -2.1 mmol/L (-2.0-2.0); BG CARBOXYHEMOGLOBIN 0.2 % (0.5-1.5); BG DEOXYHEMOGLOBIN 1.5 % (0.0-5.0); BG FRACTION INSPIRED OXYGEN 40; BG HCO3 ACT 22.9 mmol/L (22.0-26.0); BG METHEMOGLOBIN 0.3 % (0.0-1.5); BG OXYGEN SATURATION 98.5 % (92.0-98.5); BG PCO2 39.9 mmHg (35.0-45.0); BG PH 7.377 (7.350-7.450); BG SAMPLE SITE RIGHT RADIAL; BG TIDAL VOLUME(mL) 500 mL; BG TOTAL HEMOGLOBIN 10.9 g/dL (12.0-18.0); BG VENT MODE VENT - A/C; BG VENT RATE 12 set
[2019-06-16] MEDS: PANTOPRAZOLE SODIUM 40 MG/VIAL IV SCH ×2 (08:10→17:35)
[2019-06-16] MEDS: SUCRALFATE 1 G/10 ML UDC PO SCH ×4 (08:10→20:59)
[2019-06-16] MEDS: DEXT 5%/0.2% NACL 1,000 ML IV SCH ×2 (10:03→20:59)
[2019-06-16] MEDS: INSULIN GLARGINE UD 100 UNITS/ML SYR SUBCUT SCH ×2 (10:04→21:24)
[2019-06-16] MEDS ORDERED: POTASSIUM CHLORIDE INJ 40 MEQ in DEXT 5% WATER 250 ML IV SCH (11:00)
[2019-06-16] MEDS ORDERED: BACTERIOSTATIC SODIUM CHLORIDE 0.9% 30ML VIAL IJ ONE (11:20)
[2019-06-16] MEDS: VANCOMYCIN 1 G PREMIX 200 ML IV SCH (12:01)
[2019-06-16] MEDS ORDERED: FENTANYL CITRATE/PF 50MCG/ML 2ML VIAL ONE (13:30)
[2019-06-16] MEDS ORDERED: MIDAZOLAM HCL 5 MG/5 ML VIAL ONE (13:30)
[2019-06-16] MEDS ORDERED: MIDAZOLAM HCL 5 MG/5 ML VIAL IV PRN (13:42)
[2019-06-16] MEDS ORDERED: POTASSIUM CHLORIDE 20MEQ/PACKET PO NR (17:15)
[2019-06-17] VITALS (41 sets, daily range): BP systolic 117–159; BP diastolic 49–119
[2019-06-17] MEDS: MIDAZOLAM HCL 50 MG in DEXTROSE 5% WATER 40 ML IV PRN (00:23)
[2019-06-17] MEDS: BLOOD SUGAR DIAGNOSTIC STRIP TEST SCH ×5 (00:36→23:09)
[2019-06-17] MEDS: METOCLOPRAMIDE HCL 10MG/2ML VIAL IV SCH ×5 (00:36→23:09)
[2019-06-17 01:48] LABS: BASOPHILS % 0.1 % (0.0-2.0); EOSINOPHILS % 2.4 % (0.0-5.0); HEMATOCRIT. 26.8 % (36.0-48.0); HEMOGLOBIN. 8.4 g/dL (12.0-16.0); LYMPHOCYTES % 11.5 % (20.0-50.0); MEAN CORPUSCULAR HEMOGLOBIN 26.9 pg (28.0-32.0); MEAN PLATELET VOLUME 8.5 fl (7.4-10.4); MONOCYTES % 6.2 % (2.0-8.0); NEUTROPHILS % 79.8 % (40.0-76.0); PLATELET 106 x1000/uL (130-400); RED BLOOD CELL COUNT 3.11 mill/uL (4.2-5.4); RED CELL DISTRIBUTION WIDTH 17.9 % (11.6-14.6)
[2019-06-17 01:52] LABS: CHLORIDE 119 mEq/L (98-107)
[2019-06-17] MEDS: IPRATROPIUM/ALBUTEROL 0.5-3(2.5)MG/3ML NEB HHN SCH ×4 (02:08→20:21)
[2019-06-17] MEDS: MEROPENEM 1,000 MG in SODIUM CHLORIDE 0.9% 100 ML IV SCH ×3 (04:22→20:00)
[2019-06-17] MEDS: VANCOMYCIN 1 G PREMIX 200 ML IV SCH (05:29)
[2019-06-17] MEDS: INSULIN LISPRO 100 UNITS/ML SUBCUT SCH ×5 (05:31→23:52)
[2019-06-17 06:36] LABS: CHLORIDE 119 mEq/L (98-107)
[2019-06-17] MEDS: DEXT 5%/0.2% NACL 1,000 ML IV SCH (06:45)
[2019-06-17 07:03] LABS: VANCOMYCIN TROUGH 18.4 ug/mL (5.0-10.0)
[2019-06-17 07:34] LABS: BG BASE EXCESS -3.2 mmol/L (-2.0-2.0); BG CARBOXYHEMOGLOBIN 0.6 % (0.5-1.5); BG FRACTION INSPIRED OXYGEN 30; BG HCO3 ACT 20.7 mmol/L (22.0-26.0); BG METHEMOGLOBIN 0.3 % (0.0-1.5); BG OXYHEMOGLOBIN 96.1 % (94.0-97.0); BG PCO2 32.5 mmHg (35.0-45.0); BG PH 7.422 (7.350-7.450); BG PO2 91.9 mmHg (75.0-100.0); BG SAMPLE SITE RIGHT RADIAL; BG TIDAL VOLUME(mL) 500 mL; BG TOTAL HEMOGLOBIN 8.9 g/dL (12.0-18.0); BG VENT MODE VENT - A/C; BG VENT RATE 12 set
[2019-06-17] MEDS: SUCRALFATE 1 G/10 ML UDC PO SCH ×4 (07:36→20:00)
[2019-06-17] MEDS: PANTOPRAZOLE SODIUM 40 MG/VIAL IV SCH ×2 (09:25→17:10)
[2019-06-17] MEDS: INSULIN GLARGINE UD 100 UNITS/ML SYR SUBCUT SCH ×2 (09:26→22:31)
[2019-06-17] MEDS: DEXT 5%/0.45% NACL 1000ML 1,000 ML IV SCH (12:00)
[2019-06-17 14:54] LABS: BG BASE EXCESS -3.3 mmol/L (-2.0-2.0); BG CARBOXYHEMOGLOBIN 0.9 % (0.5-1.5); BG DEOXYHEMOGLOBIN 1.9 % (0.0-5.0); BG FRACTION INSPIRED OXYGEN 30; BG HCO3 ACT 20.4 mmol/L (22.0-26.0); BG METHEMOGLOBIN 0.3 % (0.0-1.5); BG OXYGEN SATURATION 98.1 % (92.0-98.5); BG OXYHEMOGLOBIN 96.9 % (94.0-97.0); BG PCO2 32.4 mmHg (35.0-45.0); BG PH 7.416 (7.350-7.450); BG PO2 113.9 mmHg (75.0-100.0); BG PRESSURE SUPPORT 12; BG SAMPLE SITE RIGHT RADIAL; BG TIDAL VOLUME(mL) 500 mL; BG TOTAL HEMOGLOBIN 12.3 g/dL (12.0-18.0); BG VENT MODE VENT - SIMV; BG VENT RATE 10 set
[2019-06-17] MEDS ORDERED: GENTAMICIN 120MG PREMIX 100 ML IV SCH (16:00)
[2019-06-17] MEDS: AMPICILLIN 2,000 MG in SODIUM CHLORIDE 0.9% 100 ML IV SCH ×2 (17:17→23:09)
[2019-06-18] VITALS (65 sets, daily range): BP systolic 113–184; BP diastolic 24–113
[2019-06-18] MEDS: IPRATROPIUM/ALBUTEROL 0.5-3(2.5)MG/3ML NEB HHN SCH ×4 (02:02→20:37)
[2019-06-18] MEDS: MEROPENEM 1,000 MG in SODIUM CHLORIDE 0.9% 100 ML IV SCH ×3 (04:32→21:47)
[2019-06-18] MEDS: METOCLOPRAMIDE HCL 10MG/2ML VIAL IV SCH ×4 (05:31→23:11)
[2019-06-18] MEDS: BLOOD SUGAR DIAGNOSTIC STRIP TEST SCH ×4 (05:31→23:11)
[2019-06-18] MEDS: AMPICILLIN 2,000 MG in SODIUM CHLORIDE 0.9% 100 ML IV SCH ×4 (05:31→23:11)
[2019-06-18 05:57] LABS: BASOPHILS % 0.1 % (0.0-2.0); EOSINOPHILS % 1.2 % (0.0-5.0); HEMOGLOBIN. 8.6 g/dL (12.0-16.0); MEAN CORPUSCULAR VOLUME 84.8 fL (81.0-99.0); MEAN PLATELET VOLUME 8.6 fl (7.4-10.4); MONOCYTES % 6.9 % (2.0-8.0); NEUTROPHILS % 81.8 % (40.0-76.0); PLATELET 99 x1000/uL (130-400); RED BLOOD CELL COUNT 3.18 mill/uL (4.2-5.4); RED CELL DISTRIBUTION WIDTH 18.2 % (11.6-14.6)
[2019-06-18] MEDS: INSULIN LISPRO 100 UNITS/ML SUBCUT SCH ×3 (06:00→18:00)
[2019-06-18 06:13] LABS: CHLORIDE 116 mEq/L (98-107)
[2019-06-18] MEDS: SUCRALFATE 1 G/10 ML UDC PO SCH ×4 (07:50→20:29)
[2019-06-18] MEDS ORDERED: POTASSIUM CHLORIDE 20MEQ TABLET SR PO SCH (08:00)
[2019-06-18] MEDS ORDERED: VANCOMYCIN 1250MG in DEXTROSE 5% WATER 250ML IV SCH (09:00)
[2019-06-18] MEDS: INSULIN GLARGINE UD 100 UNITS/ML SYR SUBCUT SCH ×2 (09:22→21:47)
[2019-06-18] MEDS: DEXT 5%/0.45% NACL 1000ML 1,000 ML IV SCH (09:22)
[2019-06-18 10:07] LABS: BG BASE EXCESS -4.7 mmol/L (-2.0-2.0); BG CARBOXYHEMOGLOBIN 0.2 % (0.5-1.5); BG DEOXYHEMOGLOBIN 1.8 % (0.0-5.0); BG FRACTION INSPIRED OXYGEN 30; BG HCO3 ACT 19.2 mmol/L (22.0-26.0); BG METHEMOGLOBIN 0.3 % (0.0-1.5); BG OXYGEN SATURATION 98.2 % (92.0-98.5); BG OXYHEMOGLOBIN 97.7 % (94.0-97.0); BG PCO2 31.1 mmHg (35.0-45.0); BG PH 7.409 (7.350-7.450); BG PO2 125.9 mmHg (75.0-100.0); BG PRESSURE SUPPORT 12; BG SAMPLE SITE RIGHT RADIAL; BG TIDAL VOLUME(mL) 500 mL; BG TOTAL HEMOGLOBIN 8.8 g/dL (12.0-18.0); BG VENT MODE VENT - SIMV; BG VENT RATE 6 set
[2019-06-18] MEDS: PANTOPRAZOLE SODIUM 40 MG/VIAL IV SCH ×2 (10:12→17:30)
[2019-06-18] MEDS ORDERED: MIDAZOLAM HCL 5 MG/5 ML VIAL ONE (13:14)
[2019-06-18] MEDS ORDERED: FENTANYL CITRATE/PF 50MCG/ML 2ML VIAL ONE (13:15)
[2019-06-18] MEDS ORDERED: MIDAZOLAM HCL 2 MG/2 ML VIAL IV PRN (13:30)
[2019-06-18] MEDS ORDERED: FENTANYL CITRATE/PF 50MCG/ML 2ML VIAL IV PRN (13:31)
[2019-06-18] MEDS: GENTAMICIN 100MG PREMIX 50 ML IV SCH (13:52)
[2019-06-18] MEDS: DEXTROSE 50% WATER 50ML SYRINGE IV PRN (15:31)
[2019-06-19] VITALS (55 sets, daily range): BP systolic 118–167; BP diastolic 52–118
[2019-06-19] MEDS: IPRATROPIUM/ALBUTEROL 0.5-3(2.5)MG/3ML NEB HHN SCH ×4 (02:47→20:43)
[2019-06-19] MEDS: DEXT 5%/0.45% NACL 1000ML 1,000 ML IV SCH (03:31)
[2019-06-19] MEDS: MEROPENEM 1,000 MG in SODIUM CHLORIDE 0.9% 100 ML IV SCH ×3 (03:31→21:03)
[2019-06-19] MEDS: BLOOD SUGAR DIAGNOSTIC STRIP TEST SCH ×3 (05:53→17:56)
[2019-06-19] MEDS: METOCLOPRAMIDE HCL 10MG/2ML VIAL IV SCH ×3 (05:53→17:19)
[2019-06-19] MEDS: AMPICILLIN 2,000 MG in SODIUM CHLORIDE 0.9% 100 ML IV SCH ×3 (05:53→17:18)
[2019-06-19] MEDS: INSULIN LISPRO 100 UNITS/ML SUBCUT SCH ×4 (06:00→17:57)
[2019-06-19 06:16] LABS: BASOPHILS % 0.2 % (0.0-2.0); EOSINOPHILS % 1.8 % (0.0-5.0); HEMATOCRIT. 27.5 % (36.0-48.0); HEMOGLOBIN. 8.7 g/dL (12.0-16.0); MEAN CORPUSCULAR VOLUME 85.2 fL (81.0-99.0); MEAN PLATELET VOLUME 8.5 fl (7.4-10.4); MONOCYTES % 6.9 % (2.0-8.0); NEUTROPHILS % 77.1 % (40.0-76.0); PLATELET 112 x1000/uL (130-400); RED BLOOD CELL COUNT 3.23 mill/uL (4.2-5.4)
[2019-06-19 06:17] LABS: CHLORIDE 114 mEq/L (98-107)
[2019-06-19 06:27] LABS: GENTAMICIN RANDOM 1.4 ug/mL
[2019-06-19] MEDS: SUCRALFATE 1 G/10 ML UDC PO SCH ×4 (07:41→21:05)
[2019-06-19 08:29] LABS: BG BASE EXCESS -1.3 mmol/L (-2.0-2.0); BG CARBOXYHEMOGLOBIN 0.2 % (0.5-1.5); BG DEOXYHEMOGLOBIN 1.6 % (0.0-5.0); BG FRACTION INSPIRED OXYGEN 30; BG HCO3 ACT 22.5 mmol/L (22.0-26.0); BG METHEMOGLOBIN 0.3 % (0.0-1.5); BG OXYGEN SATURATION 98.4 % (92.0-98.5); BG OXYHEMOGLOBIN 97.9 % (94.0-97.0); BG PCO2 33.8 mmHg (35.0-45.0); BG PH 7.441 (7.350-7.450); BG PO2 125.4 mmHg (75.0-100.0); BG PRESSURE SUPPORT 12; BG SAMPLE SITE RIGHT RADIAL; BG TIDAL VOLUME(mL) 500 mL; BG TOTAL HEMOGLOBIN 9.2 g/dL (12.0-18.0); BG VENT MODE VENT - SIMV; BG VENT RATE 6 set
[2019-06-19] MEDS: PANTOPRAZOLE SODIUM 40 MG/VIAL IV SCH ×2 (08:35→17:14)
[2019-06-19] MEDS: INSULIN GLARGINE UD 100 UNITS/ML SYR SUBCUT SCH ×2 (10:13→21:09)
[2019-06-19] MEDS: GENTAMICIN 100MG PREMIX 50 ML IV SCH (11:09)
[2019-06-19 20:36] LABS: CHLORIDE 111 mEq/L (98-107)
[2019-06-19] MEDS ORDERED: POTASSIUM CHLORIDE 20MEQ/PACKET PO NR (21:30)
[2019-06-20] VITALS (63 sets, daily range): BP systolic 113–174; BP diastolic 46–97
[2019-06-20] MEDS: DEXT 5%/0.45% NACL 1000ML 1,000 ML IV SCH ×2 (00:02→21:01)
[2019-06-20] MEDS: BLOOD SUGAR DIAGNOSTIC STRIP TEST SCH ×5 (00:04→23:20)
[2019-06-20] MEDS: METOCLOPRAMIDE HCL 10MG/2ML VIAL IV SCH ×5 (00:06→23:19)
[2019-06-20] MEDS: AMPICILLIN 2,000 MG in SODIUM CHLORIDE 0.9% 100 ML IV SCH ×5 (00:07→23:19)
[2019-06-20] MEDS: IPRATROPIUM/ALBUTEROL 0.5-3(2.5)MG/3ML NEB HHN SCH ×4 (02:59→20:13)
[2019-06-20] MEDS: MEROPENEM 1,000 MG in SODIUM CHLORIDE 0.9% 100 ML IV SCH ×3 (03:37→20:53)
[2019-06-20] MEDS: INSULIN LISPRO 100 UNITS/ML SUBCUT SCH ×5 (05:26→23:29)
[2019-06-20 07:05] LABS: BASOPHILS % 0.2 % (0.0-2.0); EOSINOPHILS % 1.8 % (0.0-5.0); HEMATOCRIT. 21.9 % (36.0-48.0); LYMPHOCYTES % 10.7 % (20.0-50.0); MEAN CORPUSCULAR HEMOGLOBIN 26.2 pg (28.0-32.0); MEAN CORPUSCULAR VOLUME 84.2 fL (81.0-99.0); MEAN PLATELET VOLUME 8.5 fl (7.4-10.4); MONOCYTES % 7.2 % (2.0-8.0); NEUTROPHILS % 80.1 % (40.0-76.0); PLATELET 109 x1000/uL (130-400); RED CELL DISTRIBUTION WIDTH 17.7 % (11.6-14.6)
[2019-06-20 07:18] LABS: HEMOGLOBIN. 6.8 g/dL (12.0-16.0)
[2019-06-20 07:45] LABS: CHLORIDE 119 mEq/L (98-107)
[2019-06-20] MEDS ORDERED: POTASSIUM CHLORIDE 20MEQ/PACKET GT NR ×2 (08:30→10:00)
[2019-06-20] MEDS: SUCRALFATE 1 G/10 ML UDC PO SCH ×4 (08:51→20:53)
[2019-06-20] MEDS: PANTOPRAZOLE SODIUM 40 MG/VIAL IV SCH ×2 (08:51→17:21)
[2019-06-20 08:57] LABS: BG BASE EXCESS -2.2 mmol/L (-2.0-2.0); BG CARBOXYHEMOGLOBIN 0.2 % (0.5-1.5); BG DEOXYHEMOGLOBIN 1.2 % (0.0-5.0); BG FRACTION INSPIRED OXYGEN 30; BG HCO3 ACT 21.5 mmol/L (22.0-26.0); BG METHEMOGLOBIN 0.3 % (0.0-1.5); BG OXYGEN SATURATION 98.8 % (92.0-98.5); BG OXYHEMOGLOBIN 98.3 % (94.0-97.0); BG PCO2 32.9 mmHg (35.0-45.0); BG PH 7.434 (7.350-7.450); BG PO2 146.1 mmHg (75.0-100.0); BG PRESSURE SUPPORT 12; BG SAMPLE SITE RIGHT RADIAL; BG TIDAL VOLUME(mL) 500 mL; BG VENT MODE VENT - SIMV; BG VENT RATE 6 set
[2019-06-20] MEDS ORDERED: MAGNESIUM 4 G PREMIX 100 ML IV NR (09:00)
[2019-06-20] MEDS: INSULIN GLARGINE UD 100 UNITS/ML SYR SUBCUT SCH ×2 (10:18→21:00)
[2019-06-20] MEDS: HYDRALAZINE 20MG/ML VIAL IV PRN (10:54)
[2019-06-20] MEDS: GENTAMICIN 100MG PREMIX 50 ML IV SCH (12:51)
[2019-06-20 17:15] LABS: HEMATOCRIT 27.5 % (36.0-48.0); HEMOGLOBIN 8.9 g/dL (12.0-16.0)
[2019-06-21] VITALS (51 sets, daily range): BP systolic 129–162; BP diastolic 49–84
[2019-06-21] MEDS: IPRATROPIUM/ALBUTEROL 0.5-3(2.5)MG/3ML NEB HHN SCH ×5 (02:08→20:23)
[2019-06-21] MEDS: MEROPENEM 1,000 MG in SODIUM CHLORIDE 0.9% 100 ML IV SCH ×3 (04:12→20:07)
[2019-06-21] MEDS: BLOOD SUGAR DIAGNOSTIC STRIP TEST SCH ×3 (05:23→18:12)
[2019-06-21] MEDS: METOCLOPRAMIDE HCL 10MG/2ML VIAL IV SCH ×3 (05:23→17:25)
[2019-06-21] MEDS: AMPICILLIN 2,000 MG in SODIUM CHLORIDE 0.9% 100 ML IV SCH ×3 (05:23→17:27)
[2019-06-21] MEDS: INSULIN LISPRO 100 UNITS/ML SUBCUT SCH ×3 (06:00→18:17)
[2019-06-21 06:33] LABS: BASOPHILS % 0.2 % (0.0-2.0); EOSINOPHILS % 2.4 % (0.0-5.0); HEMOGLOBIN. 7.4 g/dL (12.0-16.0); LYMPHOCYTES % 10.1 % (20.0-50.0); MEAN CORPUSCULAR HEMOGLOBIN 27.3 pg (28.0-32.0); MEAN CORPUSCULAR VOLUME 84.6 fL (81.0-99.0); MEAN PLATELET VOLUME 8.6 fl (7.4-10.4); MONOCYTES % 6.8 % (2.0-8.0); NEUTROPHILS % 80.5 % (40.0-76.0); PLATELET 121 x1000/uL (130-400); RED BLOOD CELL COUNT 2.72 mill/uL (4.2-5.4); RED CELL DISTRIBUTION WIDTH 17.5 % (11.6-14.6)
[2019-06-21 06:43] LABS: CHLORIDE 118 mEq/L (98-107)
[2019-06-21 06:56] LABS: PHOSPHORUS 2.5 mg/dL (2.5-4.9)
[2019-06-21] MEDS: PANTOPRAZOLE SODIUM 40 MG/VIAL IV SCH ×2 (08:29→17:25)
[2019-06-21] MEDS: SUCRALFATE 1 G/10 ML UDC PO SCH ×4 (08:29→21:07)
[2019-06-21] MEDS ORDERED: METHYLPREDNISOLONE SOD SUCC 125 MG/2 ML VIAL IV NR (10:00)
[2019-06-21] MEDS ORDERED: POTASSIUM CHLORIDE 20MEQ/PACKET PO NR (10:00)
[2019-06-21] MEDS: INSULIN GLARGINE UD 100 UNITS/ML SYR SUBCUT SCH ×2 (10:06→22:09)
[2019-06-21] MEDS: GENTAMICIN 100MG PREMIX 50 ML IV SCH (11:33)
[2019-06-21 11:48] LABS: BG BASE EXCESS -3.1 mmol/L (-2.0-2.0); BG CARBOXYHEMOGLOBIN 0.3 % (0.5-1.5); BG DEOXYHEMOGLOBIN 1.7 % (0.0-5.0); BG FRACTION INSPIRED OXYGEN 30; BG HCO3 ACT 20.6 mmol/L (22.0-26.0); BG METHEMOGLOBIN 0.2 % (0.0-1.5); BG OXYGEN SATURATION 98.3 % (92.0-98.5); BG OXYHEMOGLOBIN 97.8 % (94.0-97.0); BG PH 7.426 (7.350-7.450); BG PO2 132.3 mmHg (75.0-100.0); BG PRESSURE SUPPORT 8; BG SAMPLE SITE RIGHT RADIAL; BG TOTAL HEMOGLOBIN 10.3 g/dL (12.0-18.0); BG VENT MODE VENT - CPAP
[2019-06-21] MEDS: DEXT 5%/0.45% NACL 1000ML 1,000 ML IV SCH (15:08)
[2019-06-21 17:43] LABS: HEMATOCRIT 31.3 % (36.0-48.0); HEMOGLOBIN 10.2 g/dL (12.0-16.0)
[2019-06-22] VITALS (37 sets, daily range): BP systolic 124–170; BP diastolic 57–101
[2019-06-22] MEDS: BLOOD SUGAR DIAGNOSTIC STRIP TEST SCH ×4 (00:31→18:00)
[2019-06-22] MEDS: METOCLOPRAMIDE HCL 10MG/2ML VIAL IV SCH ×4 (00:31→16:00)
[2019-06-22] MEDS: AMPICILLIN 2,000 MG in SODIUM CHLORIDE 0.9% 100 ML IV SCH ×4 (00:31→16:08)
[2019-06-22] MEDS: INSULIN LISPRO 100 UNITS/ML SUBCUT SCH ×4 (00:32→18:00)
[2019-06-22] MEDS: IPRATROPIUM/ALBUTEROL 0.5-3(2.5)MG/3ML NEB HHN SCH ×4 (02:02→19:58)
[2019-06-22 06:26] LABS: CHLORIDE 114 mEq/L (98-107)
[2019-06-22 06:27] LABS: BASOPHILS % 0.6 % (0.0-2.0); HEMATOCRIT. 29.5 % (36.0-48.0); HEMOGLOBIN. 9.7 g/dL (12.0-16.0); LYMPHOCYTES % 8.2 % (20.0-50.0); MEAN CORPUSCULAR HEMOGLOBIN 27.7 pg (28.0-32.0); MEAN CORPUSCULAR VOLUME 84.8 fL (81.0-99.0); MEAN PLATELET VOLUME 8.8 fl (7.4-10.4); MONOCYTES % 2.8 % (2.0-8.0); NEUTROPHILS % 88.4 % (40.0-76.0); PLATELET 135 x1000/uL (130-400); RED BLOOD CELL COUNT 3.48 mill/uL (4.2-5.4); RED CELL DISTRIBUTION WIDTH 16.9 % (11.6-14.6)
[2019-06-22] MEDS: PANTOPRAZOLE SODIUM 40 MG/VIAL IV SCH ×2 (08:28→16:07)
[2019-06-22] MEDS: SUCRALFATE 1 G/10 ML UDC PO SCH ×4 (08:28→21:31)
[2019-06-22 08:45] LABS: BG CARBOXYHEMOGLOBIN 0.3 % (0.5-1.5); BG DEOXYHEMOGLOBIN 1.6 % (0.0-5.0); BG FRACTION INSPIRED OXYGEN 30; BG HCO3 ACT 20.7 mmol/L (22.0-26.0); BG METHEMOGLOBIN 0.2 % (0.0-1.5); BG OXYGEN SATURATION 98.4 % (92.0-98.5); BG OXYHEMOGLOBIN 97.9 % (94.0-97.0); BG PH 7.429 (7.350-7.450); BG PO2 130.6 mmHg (75.0-100.0); BG PRESSURE SUPPORT 8; BG SAMPLE SITE RIGHT RADIAL; BG TOTAL HEMOGLOBIN 9.8 g/dL (12.0-18.0); BG VENT MODE VENT - CPAP
[2019-06-22] MEDS: DEXT 5%/0.45% NACL 1000ML 1,000 ML IV SCH (09:28)
[2019-06-22] MEDS: INSULIN GLARGINE UD 100 UNITS/ML SYR SUBCUT SCH ×2 (09:31→21:31)
[2019-06-22] MEDS: HYDRALAZINE 20MG/ML VIAL IV PRN (10:14)
[2019-06-22 11:47] LABS: BG BASE EXCESS -7.2 mmol/L (-2.0-2.0); BG CARBOXYHEMOGLOBIN 0.3 % (0.5-1.5); BG DEOXYHEMOGLOBIN 1.8 % (0.0-5.0); BG FRACTION INSPIRED OXYGEN 35; BG HCO3 ACT 16.2 mmol/L (22.0-26.0); BG METHEMOGLOBIN 0.2 % (0.0-1.5); BG OXYGEN SATURATION 98.2 % (92.0-98.5); BG OXYHEMOGLOBIN 97.7 % (94.0-97.0); BG PCO2 25.9 mmHg (35.0-45.0); BG PH 7.413 (7.350-7.450); BG PO2 137.5 mmHg (75.0-100.0); BG SAMPLE SITE RIGHT RADIAL; BG TOTAL HEMOGLOBIN 10.2 g/dL (12.0-18.0); BG VENT MODE MASK - AEROSOL
[2019-06-22] MEDS: GENTAMICIN 100MG PREMIX 50 ML IV SCH (12:01)
[2019-06-22] MEDS: ACETAMINOPHEN 650MG/20.3ML UDC GT PRN (21:31)
[2019-06-23] VITALS (23 sets, daily range): BP systolic 105–175; BP diastolic 53–109
[2019-06-23] MEDS: BLOOD SUGAR DIAGNOSTIC STRIP TEST SCH ×4 (00:14→16:59)
[2019-06-23] MEDS: METOCLOPRAMIDE HCL 10MG/2ML VIAL IV SCH ×4 (00:14→16:51)
[2019-06-23] MEDS: AMPICILLIN 2,000 MG in SODIUM CHLORIDE 0.9% 100 ML IV SCH ×4 (00:14→16:52)
[2019-06-23] MEDS: IPRATROPIUM/ALBUTEROL 0.5-3(2.5)MG/3ML NEB HHN SCH ×4 (02:37→20:07)
[2019-06-23 05:52] LABS: BASOPHILS % 0.2 % (0.0-2.0); EOSINOPHILS % 1.4 % (0.0-5.0); HEMATOCRIT. 31.3 % (36.0-48.0); HEMOGLOBIN. 9.9 g/dL (12.0-16.0); LYMPHOCYTES % 12.9 % (20.0-50.0); MEAN CORPUSCULAR HEMOGLOBIN 27.3 pg (28.0-32.0); MEAN PLATELET VOLUME 8.3 fl (7.4-10.4); MONOCYTES % 6.8 % (2.0-8.0); NEUTROPHILS % 78.7 % (40.0-76.0); PLATELET 160 x1000/uL (130-400); RED BLOOD CELL COUNT 3.64 mill/uL (4.2-5.4); RED CELL DISTRIBUTION WIDTH 17.2 % (11.6-14.6)
[2019-06-23 05:54] LABS: CHLORIDE 115 mEq/L (98-107)
[2019-06-23] MEDS: INSULIN LISPRO 100 UNITS/ML SUBCUT SCH ×4 (06:00→16:59)
[2019-06-23 06:04] LABS: GENTAMICIN RANDOM 1.9 ug/mL
[2019-06-23] MEDS: SUCRALFATE 1 G/10 ML UDC PO SCH ×4 (08:39→20:38)
[2019-06-23] MEDS: PANTOPRAZOLE SODIUM 40 MG/VIAL IV SCH ×2 (08:40→16:56)
[2019-06-23] MEDS: DEXT 5%/0.45% NACL 1000ML 1,000 ML IV SCH (08:40)
[2019-06-23] MEDS: CLONIDINE 0.1MG TABLET GT PRN (09:07)
[2019-06-23] MEDS: INSULIN GLARGINE UD 100 UNITS/ML SYR SUBCUT SCH ×2 (10:00→22:00)
[2019-06-23] MEDS: AMLODIPINE 5MG TABLET GT SCH ×2 (11:13→20:38)
[2019-06-23] MEDS: GENTAMICIN 100MG PREMIX 50 ML IV SCH (12:10)
[2019-06-23] MEDS: DEXTROSE 50% WATER 50ML SYRINGE IV PRN (12:33)
[2019-06-23] MEDS: HYDRALAZINE HCL 100MG TABLET GT SCH ×2 (13:42→22:45)
[2019-06-23] MEDS: GABAPENTIN 100MG CAPSULE GT SCH ×2 (13:42→22:45)
[2019-06-24] VITALS (26 sets, daily range): BP systolic 110–174; BP diastolic 44–104
[2019-06-24] MEDS: AMPICILLIN 2,000 MG in SODIUM CHLORIDE 0.9% 100 ML IV SCH ×4 (00:05→17:31)
[2019-06-24] MEDS: BLOOD SUGAR DIAGNOSTIC STRIP TEST SCH ×4 (00:05→17:33)
[2019-06-24] MEDS: METOCLOPRAMIDE HCL 10MG/2ML VIAL IV SCH ×4 (00:05→17:32)
[2019-06-24] MEDS: IPRATROPIUM/ALBUTEROL 0.5-3(2.5)MG/3ML NEB HHN SCH ×4 (01:52→21:35)
[2019-06-24] MEDS: INSULIN LISPRO 100 UNITS/ML SUBCUT SCH ×4 (05:16→17:41)
[2019-06-24] MEDS: HYDRALAZINE HCL 100MG TABLET GT SCH ×3 (05:16→21:10)
[2019-06-24] MEDS: GABAPENTIN 100MG CAPSULE GT SCH ×3 (05:16→21:10)
[2019-06-24 05:56] LABS: BASOPHILS % 0.6 % (0.0-2.0); EOSINOPHILS % 4.7 % (0.0-5.0); HEMATOCRIT. 33.9 % (36.0-48.0); HEMOGLOBIN. 10.8 g/dL (12.0-16.0); LYMPHOCYTES % 11.4 % (20.0-50.0); MEAN CORPUSCULAR HEMOGLOBIN 27.4 pg (28.0-32.0); MEAN CORPUSCULAR VOLUME 86.3 fL (81.0-99.0); MEAN PLATELET VOLUME 8.5 fl (7.4-10.4); MONOCYTES % 7.1 % (2.0-8.0); NEUTROPHILS % 76.2 % (40.0-76.0); PLATELET 144 x1000/uL (130-400); RED BLOOD CELL COUNT 3.93 mill/uL (4.2-5.4); RED CELL DISTRIBUTION WIDTH 17.1 % (11.6-14.6)
[2019-06-24 08:10] LABS: BG BASE EXCESS 0.4 mmol/L (-2.0-2.0); BG CARBOXYHEMOGLOBIN 0.3 % (0.5-1.5); BG FRACTION INSPIRED OXYGEN 28; BG HCO3 ACT 25.3 mmol/L (22.0-26.0); BG OXYHEMOGLOBIN 97.7 % (94.0-97.0); BG PCO2 42.1 mmHg (35.0-45.0); BG PH 7.397 (7.350-7.450); BG PO2 112.3 mmHg (75.0-100.0); BG SAMPLE SITE RIGHT RADIAL; BG VENT MODE NASAL CANNULA
[2019-06-24] MEDS: AMLODIPINE 5MG TABLET GT SCH ×2 (08:32→20:14)
[2019-06-24] MEDS: SUCRALFATE 1 G/10 ML UDC PO SCH ×4 (08:32→20:14)
[2019-06-24] MEDS: PANTOPRAZOLE SODIUM 40 MG/VIAL IV SCH ×2 (08:32→17:32)
[2019-06-24 09:14] LABS: CHLORIDE 113 mEq/L (98-107)
[2019-06-24] MEDS: INSULIN GLARGINE UD 100 UNITS/ML SYR SUBCUT SCH ×2 (09:51→21:19)
[2019-06-24] MEDS: GENTAMICIN 80MG PREMIX 100 ML IV SCH (11:59)
[2019-06-24] MEDS: FUROSEMIDE 40MG/4ML VIAL IVP SCH ×2 (14:27→20:14)
[2019-06-24] MEDS: DEXT 5%/0.45% NACL 1000ML 1,000 ML IV SCH (17:50)
[2019-06-25] VITALS (26 sets, daily range): BP systolic 100–158; BP diastolic 45–95
[2019-06-25] MEDS: METOCLOPRAMIDE HCL 10MG/2ML VIAL IV SCH ×5 (00:09→23:27)
[2019-06-25] MEDS: BLOOD SUGAR DIAGNOSTIC STRIP TEST SCH ×5 (00:09→23:19)
[2019-06-25] MEDS: DEXT 5%/0.45% NACL 1000ML 1,000 ML IV SCH (00:09)
[2019-06-25] MEDS: AMPICILLIN 2,000 MG in SODIUM CHLORIDE 0.9% 100 ML IV SCH ×5 (00:27→23:18)
[2019-06-25] MEDS: IPRATROPIUM/ALBUTEROL 0.5-3(2.5)MG/3ML NEB HHN SCH ×4 (03:40→20:09)
[2019-06-25] MEDS: GABAPENTIN 100MG CAPSULE GT SCH ×3 (05:10→21:37)
[2019-06-25] MEDS: HYDRALAZINE HCL 100MG TABLET GT SCH ×3 (05:10→21:37)
[2019-06-25] MEDS: INSULIN LISPRO 100 UNITS/ML SUBCUT SCH ×5 (05:11→23:20)
[2019-06-25 06:52] LABS: CHLORIDE 108 mEq/L (98-107)
[2019-06-25 07:13] LABS: BASOPHILS % 0.6 % (0.0-2.0); EOSINOPHILS % 3.4 % (0.0-5.0); HEMATOCRIT. 34.8 % (36.0-48.0); HEMOGLOBIN. 11.1 g/dL (12.0-16.0); LYMPHOCYTES % 12.4 % (20.0-50.0); MEAN CORPUSCULAR HEMOGLOBIN 27.2 pg (28.0-32.0); MEAN PLATELET VOLUME 8.2 fl (7.4-10.4); MONOCYTES % 5.7 % (2.0-8.0); NEUTROPHILS % 77.9 % (40.0-76.0); PLATELET 197 x1000/uL (130-400); RED BLOOD CELL COUNT 4.09 mill/uL (4.2-5.4); RED CELL DISTRIBUTION WIDTH 17.4 % (11.6-14.6)
[2019-06-25] MEDS: FUROSEMIDE 40MG/4ML VIAL IVP SCH ×2 (08:18→21:37)
[2019-06-25] MEDS: AMLODIPINE 5MG TABLET GT SCH ×2 (08:18→21:37)
[2019-06-25] MEDS: PANTOPRAZOLE SODIUM 40 MG/VIAL IV SCH ×2 (08:18→17:01)
[2019-06-25] MEDS: SUCRALFATE 1 G/10 ML UDC PO SCH ×4 (08:50→21:39)
[2019-06-25] MEDS: INSULIN GLARGINE UD 100 UNITS/ML SYR SUBCUT SCH ×2 (09:26→23:20)
[2019-06-25] MEDS: GENTAMICIN 80MG PREMIX 100 ML IV SCH (13:10)
[2019-06-26] VITALS (15 sets, daily range): BP systolic 117–171; BP diastolic 57–86
[2019-06-26] MEDS: IPRATROPIUM/ALBUTEROL 0.5-3(2.5)MG/3ML NEB HHN SCH ×4 (01:38→20:39)
[2019-06-26] MEDS: DEXT 5%/0.45% NACL 1000ML 1,000 ML IV SCH (04:33)
[2019-06-26] MEDS: AMPICILLIN 2,000 MG in SODIUM CHLORIDE 0.9% 100 ML IV SCH ×3 (05:03→18:16)
[2019-06-26] MEDS: METOCLOPRAMIDE HCL 10MG/2ML VIAL IV SCH ×3 (05:03→18:16)
[2019-06-26] MEDS: GABAPENTIN 100MG CAPSULE GT SCH ×3 (05:04→20:37)
[2019-06-26] MEDS: HYDRALAZINE HCL 100MG TABLET GT SCH ×3 (05:04→20:37)
[2019-06-26] MEDS: INSULIN LISPRO 100 UNITS/ML SUBCUT SCH ×3 (05:07→18:00)
[2019-06-26] MEDS: BLOOD SUGAR DIAGNOSTIC STRIP TEST SCH ×3 (05:07→18:12)
[2019-06-26 06:32] LABS: BASOPHILS % 0.4 % (0.0-2.0); EOSINOPHILS % 1.6 % (0.0-5.0); HEMATOCRIT. 31.1 % (36.0-48.0); HEMOGLOBIN. 10.1 g/dL (12.0-16.0); LYMPHOCYTES % 8.6 % (20.0-50.0); MEAN CORPUSCULAR HEMOGLOBIN 27.2 pg (28.0-32.0); MEAN CORPUSCULAR VOLUME 83.9 fL (81.0-99.0); MEAN PLATELET VOLUME 7.8 fl (7.4-10.4); MONOCYTES % 6.6 % (2.0-8.0); NEUTROPHILS % 82.8 % (40.0-76.0); PLATELET 174 x1000/uL (130-400); RED BLOOD CELL COUNT 3.71 mill/uL (4.2-5.4); RED CELL DISTRIBUTION WIDTH 17.9 % (11.6-14.6)
[2019-06-26 07:52] LABS: CHLORIDE 105 mEq/L (98-107)
[2019-06-26] MEDS: PANTOPRAZOLE SODIUM 40 MG/VIAL IV SCH ×2 (09:24→16:23)
[2019-06-26] MEDS: FUROSEMIDE 40MG/4ML VIAL IVP SCH (09:24)
[2019-06-26] MEDS: SUCRALFATE 1 G/10 ML UDC PO SCH ×4 (09:24→20:36)
[2019-06-26] MEDS: AMLODIPINE 5MG TABLET GT SCH ×2 (09:25→20:36)
[2019-06-26] MEDS: INSULIN GLARGINE UD 100 UNITS/ML SYR SUBCUT SCH (10:49)
[2019-06-26] MEDS: GENTAMICIN 80MG PREMIX 100 ML IV SCH (12:18)
[2019-06-26] MEDS: DOCUSATE SODIUM SUGAR FREE 100MG/10ML UDC GT SCH (13:15)
[2019-06-26] MEDS ORDERED: POTASSIUM CHLORIDE 20MEQ/PACKET GT NR (13:15)
[2019-06-26] MEDS: CLONIDINE 0.1MG TABLET GT PRN (13:22)
[2019-06-27] VITALS (14 sets, daily range): BP systolic 111–160; BP diastolic 32–82
[2019-06-27] MEDS: AMPICILLIN 2,000 MG in SODIUM CHLORIDE 0.9% 100 ML IV SCH ×4 (00:21→18:28)
[2019-06-27] MEDS: METOCLOPRAMIDE HCL 10MG/2ML VIAL IV SCH ×4 (00:21→18:28)
[2019-06-27] MEDS: INSULIN GLARGINE UD 100 UNITS/ML SYR SUBCUT SCH ×2 (00:23→10:00)
[2019-06-27] MEDS: IPRATROPIUM/ALBUTEROL 0.5-3(2.5)MG/3ML NEB HHN SCH ×4 (00:42→20:42)
[2019-06-27] MEDS: HYDRALAZINE HCL 100MG TABLET GT SCH ×3 (04:57→15:32)
[2019-06-27] MEDS: GABAPENTIN 100MG CAPSULE GT SCH ×2 (04:58→13:34)
[2019-06-27] MEDS: BLOOD SUGAR DIAGNOSTIC STRIP TEST SCH ×4 (06:00→18:28)
[2019-06-27] MEDS: INSULIN LISPRO 100 UNITS/ML SUBCUT SCH ×4 (06:00→18:00)
[2019-06-27] MEDS: SUCRALFATE 1 G/10 ML UDC PO SCH ×4 (06:20→21:31)
[2019-06-27 07:27] LABS: HEMATOCRIT. 31.6 % (36.0-48.0); HEMOGLOBIN. 10.1 g/dL (12.0-16.0); MEAN CORPUSCULAR HEMOGLOBIN 26.9 pg (28.0-32.0); MEAN CORPUSCULAR VOLUME 84.3 fL (81.0-99.0); MEAN PLATELET VOLUME 7.9 fl (7.4-10.4); PLATELET 184 x1000/uL (130-400); RED BLOOD CELL COUNT 3.75 mill/uL (4.2-5.4); RED CELL DISTRIBUTION WIDTH 17.8 % (11.6-14.6)
[2019-06-27 07:37] LABS: BG BASE EXCESS 5.7 mmol/L (-2.0-2.0); BG CARBOXYHEMOGLOBIN 0.7 % (0.5-1.5); BG DEOXYHEMOGLOBIN 3.8 % (0.0-5.0); BG METHEMOGLOBIN 0.2 % (0.0-1.5); BG OXYGEN SATURATION 96.2 % (92.0-98.5); BG OXYHEMOGLOBIN 95.3 % (94.0-97.0); BG PCO2 37.4 mmHg (35.0-45.0); BG PH 7.508 (7.350-7.450); BG PO2 81.3 mmHg (75.0-100.0); BG SAMPLE SITE RIGHT RADIAL; BG TOTAL HEMOGLOBIN 11.6 g/dL (12.0-18.0); BG VENT MODE NASAL CANNULA
[2019-06-27 07:52] LABS: GENTAMICIN RANDOM 1.4 ug/mL
[2019-06-27] MEDS ORDERED: FUROSEMIDE 40MG/4ML VIAL IVP SCH (09:00)
[2019-06-27] MEDS: DOCUSATE SODIUM SUGAR FREE 100MG/10ML UDC GT SCH (09:04)
[2019-06-27] MEDS: ACETAMINOPHEN 650MG/20.3ML UDC GT PRN ×2 (09:04→13:34)
[2019-06-27] MEDS: AMLODIPINE 5MG TABLET GT SCH ×2 (09:04→21:26)
[2019-06-27] MEDS: PANTOPRAZOLE SODIUM 40 MG/VIAL IV SCH ×2 (09:04→18:28)
[2019-06-27 10:37] LABS: BG BASE EXCESS 5.2 mmol/L (-2.0-2.0); BG BILEVEL POS AIRWAY PRESSURE 15/5; BG CARBOXYHEMOGLOBIN 0.3 % (0.5-1.5); BG DEOXYHEMOGLOBIN 2.6 % (0.0-5.0); BG HCO3 ACT 28.9 mmol/L (22.0-26.0); BG METHEMOGLOBIN 0.2 % (0.0-1.5); BG OXYGEN SATURATION 97.4 % (92.0-98.5); BG OXYHEMOGLOBIN 96.9 % (94.0-97.0); BG PCO2 39.2 mmHg (35.0-45.0); BG PH 7.486 (7.350-7.450); BG PO2 101.5 mmHg (75.0-100.0); BG SAMPLE SITE RIGHT RADIAL; BG TOTAL HEMOGLOBIN 10.8 g/dL (12.0-18.0); BG VENT MODE MASK - BIPAP; BG VENT RATE 16 set
[2019-06-27 10:48] LABS: CHLORIDE 102 mEq/L (98-107)
[2019-06-27] MEDS: CEFEPIME 1,000 MG in DEXTROSE 5% WATER 50 ML IV SCH ×2 (11:02→21:31)
[2019-06-27] MEDS: GENTAMICIN 80MG PREMIX 100 ML IV SCH ×2 (12:00→16:00)
[2019-06-27] MEDS ORDERED: POTASSIUM CHLORIDE 20MEQ/PACKET PO SCH (12:15)
[2019-06-27] MEDS: CLONIDINE 0.1MG TABLET GT PRN (15:32)
[2019-06-27 18:50] LABS: BG DEOXYHEMOGLOBIN 5.7 % (0.0-5.0); BG FRACTION INSPIRED OXYGEN 21; BG HCO3 ACT 28.2 mmol/L (22.0-26.0); BG METHEMOGLOBIN 0.1 % (0.0-1.5); BG OXYGEN SATURATION 94.3 % (92.0-98.5); BG OXYHEMOGLOBIN 94.2 % (94.0-97.0); BG PCO2 40.5 mmHg (35.0-45.0); BG PO2 70.1 mmHg (75.0-100.0); BG SAMPLE SITE RIGHT RADIAL; BG TOTAL HEMOGLOBIN 10.3 g/dL (12.0-18.0); BG VENT MODE ROOM AIR
[2019-06-27 19:29] LABS: PLATELET ESTIMATE NORMAL
== END 2019-06-27 22:35 | DRG 870 ==
LOC: ER 08:23 → CVICU 10:17 → EDBEDREQSVC 10:22 → EDBEDREQ 10:22 → EDBEDREQTM 10:22 → ENRESERV 15:58 → 5EST 06-25 10:34
PROVIDERS: ADMIT Internal Medicine; ATTEND Internal Medicine
PROC: 0BH17EZ Insertion of Endotracheal Airway into Trachea, Via Natural or Artificial Opening (ICD-10-PCS; principal; 2019-06-14)
PROC: 5A1955Z Respiratory Ventilation, Greater than 96 Consecutive Hours (ICD-10-PCS; 2019-06-14)
PROC: 02HV33Z Insertion of Infusion Device into Superior Vena Cava, Percutaneous Approach (ICD-10-PCS; 2019-06-14)
PROC: B548ZZA Ultrasonography of Superior Vena Cava, Guidance (ICD-10-PCS; 2019-06-14)
PROC: 30233N1 Transfusion of Nonautologous Red Blood Cells into Peripheral Vein, Percutaneous Approach (ICD-10-PCS; 2019-06-14)
PROC: 0DB78ZX Excision of Stomach, Pylorus, Via Natural or Artificial Opening Endoscopic, Diagnostic (ICD-10-PCS; 2019-06-18)
PROC: 0D20XUZ Change Feeding Device in Upper Intestinal Tract, External Approach (ICD-10-PCS; 2019-06-18)
PROC: 5A09357 Assistance with Respiratory Ventilation, Less than 24 Consecutive Hours, Continuous Positive Airway Pressure (ICD-10-PCS; 2019-06-27)
DX: A41.81 Sepsis due to Enterococcus (principal); L89.154 Pressure ulcer of sacral region, stage 4; J96.00 Acute respiratory failure, unspecified whether with hypoxia or hypercapnia; E43 Unspecified severe protein-calorie malnutrition; J18.9 Pneumonia, unspecified organism; R65.21 Severe sepsis with septic shock; G93.41 Metabolic encephalopathy; N39.0 Urinary tract infection, site not specified; E87.0 Hyperosmolality and hypernatremia; N17.9 Acute kidney failure, unspecified; Z16.12 Extended spectrum beta lactamase (ESBL) resistance; K94.23 Gastrostomy malfunction; N13.6 Pyonephrosis; K22.10 Ulcer of esophagus without bleeding; R74.0 Nonspecific elevation of levels of transaminase and lactic acid dehydrogenase [LDH]; L89.629 Pressure ulcer of left heel, unspecified stage; E11.51 Type 2 diabetes mellitus with diabetic peripheral angiopathy without gangrene; E66.9 Obesity, unspecified; K29.70 Gastritis, unspecified, without bleeding; E86.0 Dehydration; D69.6 Thrombocytopenia, unspecified; E87.6 Hypokalemia; E11.22 Type 2 diabetes mellitus with diabetic chronic kidney disease; N18.9 Chronic kidney disease, unspecified; I12.9 Hypertensive chronic kidney disease with stage 1 through stage 4 chronic kidney disease, or unspecified chronic kidney disease; L89.026 Pressure-induced deep tissue damage of left elbow; E87.8 Other disorders of electrolyte and fluid balance, not elsewhere classified; M19.90 Unspecified osteoarthritis, unspecified site; F03.90 Unspecified dementia, unspecified severity, without behavioral disturbance, psychotic disturbance, mood disturbance, and anxiety; I48.0 Paroxysmal atrial fibrillation; Y92.238 Other place in hospital as the place of occurrence of the external cause; E83.42 Hypomagnesemia; Y83.3 Surgical operation with formation of external stoma as the cause of abnormal reaction of the patient, or of later complication, without mention of misadventure at the time of the procedure; Z86.711 Personal history of pulmonary embolism; Z95.828 Presence of other vascular implants and grafts; Z74.01 Bed confinement status; Z68.32 Body mass index [BMI] 32.0-32.9, adult
CPT/HCPCS: 36415; 36600; 70551; 71045; 73630; 74018; 76937; 80048; 80053; 80170; 80202; 81003; 82270; 82375; 82728; 82805; 82962; 83540; 83550; 83605; 83735; 84100; 84134; 84145; 84484; 84550; 85014; 85018; 85025; 85027; 85044; 86850; 86900; 86920; 87070; 87077; 87186; 87804; 88305; 88313; 93005; 93306; 93970; 93971; 94002; 94003; 94640; 94660; 96365; 99291; A6261; C1725; C1769; C9113; J0290; J0330; J0360; J0692; J1200; J1580; J1815; J1940; J1956; J2060; J2185; J2250; J2543; J2765; J2930; J3010; J3370; J3475; J3480; J3490; J7030; J7040; J7050; J7060; P9016; P9021; A4315

== ENCOUNTER 2019-10-21 18:18 | Inpatient (IN) | payer MEDICARE, MEDICAID ==
[~2019-10-21] VITALS: Ht 172.7 cm; Wt 79.8 kg
[~2019-10-21 18:18] MED LIST changes: -NIFE-32 PO
[2019-10-21 19:34] LABS: HEMATOCRIT. 21.5 % (36.0-48.0); MEAN CORPUSCULAR HEMOGLOBIN 23.8 pg (28.0-32.0); MEAN CORPUSCULAR VOLUME 79.2 fL (81.0-99.0); MEAN PLATELET VOLUME 6.4 fl (7.4-10.4); PLATELET 197 x1000/uL (130-400); RED BLOOD CELL COUNT 2.71 mill/uL (4.2-5.4); RED CELL DISTRIBUTION WIDTH 19.7 % (11.6-14.6)
[2019-10-21 19:37] LABS: CHLORIDE 97 mEq/L (98-107)
[2019-10-21 19:39] LABS: HEMOGLOBIN. 6.5 g/dL (12.0-16.0)
[2019-10-21 19:51] LABS: PLATELET ESTIMATE NORMAL
[2019-10-22] MEDS ORDERED: POTASSIUM CHLORIDE 20MEQ TABLET SR PO SCH (09:15)
[2019-10-22] MEDS ORDERED: ONDANSETRON HCL 4MG/2ML INJ IV PRN (09:15)
[2019-10-22] MEDS ORDERED: ACETAMINOPHEN 325MG TABLET PO PRN (09:15)
[2019-10-22] MEDS ORDERED: PIPERACILLIN/TAZOBACTAM 3.375 G in DEXT 5% WATER 100 ML IV NR (11:00)
[2019-10-22] MEDS ORDERED: VANCOMYCIN 1,750 MG in DEXT 5% WATER 250 ML IV NR (11:00)
[2019-10-22 12:08] LABS: HEMATOCRIT. 28.1 % (36.0-48.0); HEMOGLOBIN. 8.8 g/dL (12.0-16.0); MEAN CORPUSCULAR HEMOGLOBIN 25.7 pg (28.0-32.0); MEAN CORPUSCULAR VOLUME 81.8 fL (81.0-99.0); MEAN PLATELET VOLUME 6.4 fl (7.4-10.4); PLATELET 179 x1000/uL (130-400); RED BLOOD CELL COUNT 3.43 mill/uL (4.2-5.4); RED CELL DISTRIBUTION WIDTH 19.1 % (11.6-14.6)
[2019-10-22 12:58] LABS: PLATELET ESTIMATE NORMAL
[2019-10-22] MEDS: FUROSEMIDE 100MG/10ML VIAL IVP SCH ×2 (14:35→21:04)
[2019-10-22 16:00] VITALS: BP 139/42
[2019-10-22 16:19] VITALS: BP 139/42
[2019-10-22] MEDS ORDERED: LEVO25TA7 GT (16:51)
[2019-10-22] MEDS ORDERED: INSU100I28 SQ (16:51)
[2019-10-22] MEDS ORDERED: SUCR1TAB GT (16:54)
[2019-10-22] MEDS ORDERED: MEMA5TAB42 GT (16:54)
[2019-10-22] MEDS ORDERED: POTA8CAP20 GT (16:54)
[2019-10-22] MEDS: FERROUS SULFATE 325MG TABLET PO SCH (17:50)
[2019-10-22] MEDS ORDERED: AMLO5TAB88 GT (17:57)
[2019-10-22] MEDS ORDERED: AMIO100T4 GT (17:57)
[2019-10-22] MEDS ORDERED: HYDR100T26 GT (17:57)
[2019-10-22] MEDS ORDERED: SUCRALFATE 1G TABLET GT SCH (18:00)
[2019-10-22] MEDS ORDERED: PIPERACILLIN/TAZOBACTAM 3.375 G in DEXT 5% WATER 100 ML IV SCH (18:00)
[2019-10-22] MEDS ORDERED: DEXTROSE 50% WATER 50ML SYRINGE IV PRN (18:00)
[2019-10-22] MEDS: PIPERACILLIN/TAZOBACTAM 2.25 G in DEXTROSE 5% WATER 50 ML IV SCH (18:33)
[2019-10-22 18:42] LABS: TOTAL IRON BINDING CAPACITY 148 ug/dL (250-450)
[2019-10-22] MEDS: POTASSIUM CHLORIDE 10MEQ TABLET SR PO SCH (18:42)
[2019-10-22 20:00] VITALS: BP 115/47
[2019-10-22] MEDS: INSULIN LISPRO 100 UNITS/ML SUBCUT SCH (21:00)
[2019-10-22] MEDS: MEMANTINE HCL 5MG TABLET GT SCH (21:03)
[2019-10-22] MEDS: AMLODIPINE 5MG TABLET GT SCH (21:04)
[2019-10-22] MEDS: SUCRALFATE 1 G/10 ML UDC PO SCH (21:04)
[2019-10-22] MEDS: HYDRALAZINE HCL 100MG TABLET GT SCH (21:05)
[2019-10-22] MEDS: OMEPRAZOLE 20MG CAPSULE EXTENDED RELEASE PO SCH (21:05)
[2019-10-22] MEDS: BLOOD SUGAR DIAGNOSTIC STRIP TEST SCH (21:05)
[2019-10-22] MEDS ORDERED: PIPERACILLIN/TAZOBACTAM 2.25 G in DEXTROSE 5% WATER 50 ML IV SCH (22:00)
[2019-10-22] MEDS ORDERED: INSULIN GLARGINE UD 100 UNITS/ML SYR SUBCUT SCH (22:00)
[2019-10-22] MEDS: INSULIN GLARGINE UD 100 UNITS/ML SYR SUBCUT SCH (23:51)
[2019-10-23] VITALS: BP 134/51
[2019-10-23] MEDS: PIPERACILLIN/TAZOBACTAM 2.25 G in DEXTROSE 5% WATER 50 ML IV SCH ×3 (01:20→18:36)
[2019-10-23 04:00] VITALS: BP 136/45
[2019-10-23] MEDS: OMEPRAZOLE 20MG CAPSULE EXTENDED RELEASE PO SCH (06:29)
[2019-10-23] MEDS: HYDRALAZINE HCL 100MG TABLET GT SCH ×3 (06:29→23:09)
[2019-10-23] MEDS: LEVOTHYROXINE SODIUM 25MCG TABLET GT SCH (06:29)
[2019-10-23] MEDS: SUCRALFATE 1 G/10 ML UDC PO SCH ×2 (06:30→12:19)
[2019-10-23] MEDS: BLOOD SUGAR DIAGNOSTIC STRIP TEST SCH ×4 (06:30→21:00)
[2019-10-23 06:48] LABS: HEMATOCRIT. 27.4 % (36.0-48.0); HEMOGLOBIN. 8.6 g/dL (12.0-16.0); MEAN CORPUSCULAR HEMOGLOBIN 25.8 pg (28.0-32.0); MEAN CORPUSCULAR VOLUME 82.1 fL (81.0-99.0); MEAN PLATELET VOLUME 6.4 fl (7.4-10.4); PLATELET 192 x1000/uL (130-400); RED BLOOD CELL COUNT 3.33 mill/uL (4.2-5.4); RED CELL DISTRIBUTION WIDTH 19.2 % (11.6-14.6)
[2019-10-23 06:57] LABS: PHOSPHORUS 3.7 mg/dL (2.5-4.9)
[2019-10-23] MEDS ORDERED: OMEPRAZOLE 20MG CAPSULE EXTENDED RELEASE PO SCH (07:20)
[2019-10-23] MEDS: INSULIN LISPRO 100 UNITS/ML SUBCUT SCH ×4 (07:50→21:00)
[2019-10-23] MEDS: FERROUS SULFATE 325MG TABLET PO SCH ×3 (07:50→18:35)
[2019-10-23 08:00] VITALS: BP 117/38
[2019-10-23] MEDS: MEMANTINE HCL 5MG TABLET GT SCH (08:54)
[2019-10-23] MEDS: AMIODARONE HCL 200 MG TABLET GT SCH (08:55)
[2019-10-23] MEDS: AMLODIPINE 5MG TABLET GT SCH (08:55)
[2019-10-23] MEDS: FUROSEMIDE 100MG/10ML VIAL IVP SCH (08:56)
[2019-10-23] MEDS: POTASSIUM CHLORIDE 10MEQ TABLET SR PO SCH (08:56)
[2019-10-23] MEDS: INSULIN GLARGINE UD 100 UNITS/ML SYR SUBCUT SCH ×2 (08:57→22:00)
[2019-10-23 11:41] LABS: PLATELET ESTIMATE NORMAL
[2019-10-23 12:00] VITALS: BP 133/45
[2019-10-23] MEDS ORDERED: DEXT 5%/0.45% NACL 1000ML 1,000 ML IV SCH (13:15)
[2019-10-23 15:30] VITALS: BP 126/44
[2019-10-23] MEDS ORDERED: MIDAZOLAM HCL 5 MG/5 ML VIAL ONE (16:02)
[2019-10-23] MEDS ORDERED: FENTANYL CITRATE/PF 50MCG/ML 2ML VIAL ONE (16:03)
[2019-10-23] MEDS ORDERED: MIDAZOLAM HCL 5 MG/5 ML VIAL IV PRN (16:18)
[2019-10-23 16:43] LABS: CLARITY URINE TURBID (CLEAR); COLOR URINE DARK YELLOW (YELLOW); KETONES URINE TRACE (NEGATIVE); LEUKOCYTE ESTERASE URINE 2+ (NEGATIVE); NITRITE URINE NEGATIVE (NEGATIVE); OCCULT BLOOD URINE 3+ (NEGATIVE); PROTEIN URINE 4+ (NEGATIVE); SPECIFIC GRAVITY URINE 1.031 (1.005-1.030)
[2019-10-23] MEDS: METOCLOPRAMIDE HCL 10MG/2ML VIAL IV SCH (18:35)
[2019-10-23] MEDS: SUCRALFATE 1 G/10 ML UDC GT SCH (18:35)
[2019-10-23] MEDS: PANTOPRAZOLE SODIUM 40 MG/VIAL IV SCH (18:36)
[2019-10-23 20:00] VITALS: BP 120/34
[2019-10-24] VITALS (7 sets, daily range): BP systolic 104–116; BP diastolic 35–48
[2019-10-24] MEDS: AMLODIPINE 5MG TABLET GT SCH ×3 (00:41→20:54)
[2019-10-24] MEDS: OMEPRAZOLE 20MG CAPSULE EXTENDED RELEASE PO SCH ×2 (00:44→08:47)
[2019-10-24] MEDS: FUROSEMIDE 100MG/10ML VIAL IVP SCH ×3 (00:45→20:54)
[2019-10-24] MEDS: MEMANTINE HCL 5MG TABLET GT SCH ×3 (00:46→20:54)
[2019-10-24] MEDS: SUCRALFATE 1 G/10 ML UDC GT SCH ×4 (01:02→18:01)
[2019-10-24] MEDS: METOCLOPRAMIDE HCL 10MG/2ML VIAL IV SCH ×4 (01:03→18:01)
[2019-10-24] MEDS: PIPERACILLIN/TAZOBACTAM 2.25 G in DEXTROSE 5% WATER 50 ML IV SCH ×3 (01:21→18:01)
[2019-10-24] MEDS: HYDRALAZINE HCL 100MG TABLET GT SCH ×3 (06:00→22:00)
[2019-10-24] MEDS: PANTOPRAZOLE SODIUM 40 MG/VIAL IV SCH ×2 (06:29→18:01)
[2019-10-24] MEDS: BLOOD SUGAR DIAGNOSTIC STRIP TEST SCH ×4 (07:20→20:42)
[2019-10-24] MEDS: INSULIN LISPRO 100 UNITS/ML SUBCUT SCH ×4 (07:50→20:42)
[2019-10-24 08:20] LABS: BASOPHILS % 0.6 % (0.0-2.0); EOSINOPHILS % 3.4 % (0.0-5.0); HEMOGLOBIN. 7.8 g/dL (12.0-16.0); LYMPHOCYTES % 7.7 % (20.0-50.0); MEAN CORPUSCULAR HEMOGLOBIN 25.3 pg (28.0-32.0); MEAN CORPUSCULAR VOLUME 84.3 fL (81.0-99.0); MONOCYTES % 3.4 % (2.0-8.0); NEUTROPHILS % 84.9 % (40.0-76.0); RED BLOOD CELL COUNT 3.09 mill/uL (4.2-5.4); RED CELL DISTRIBUTION WIDTH 19.6 % (11.6-14.6)
[2019-10-24 08:22] LABS: PROTHROMBIN TIME 10.9 sec (9.6-11.0)
[2019-10-24] MEDS: AMIODARONE HCL 200 MG TABLET GT SCH (08:47)
[2019-10-24] MEDS: FERROUS SULFATE 325MG TABLET PO SCH ×3 (08:47→18:00)
[2019-10-24] MEDS: LEVOTHYROXINE SODIUM 25MCG TABLET GT SCH (08:47)
[2019-10-24] MEDS: POTASSIUM CHLORIDE 10MEQ TABLET SR PO SCH (08:53)
[2019-10-24 08:55] LABS: PHOSPHORUS 3.6 mg/dL (2.5-4.9)
[2019-10-24 09:17] LABS: VITAMIN B12 SERUM 1787 pg/mL (211-911)
[2019-10-24 09:23] LABS: FOLIC ACID (FOLATE) SERUM > 20.00 ng/mL (>5.38)
[2019-10-24] MEDS: INSULIN GLARGINE UD 100 UNITS/ML SYR SUBCUT SCH (10:43)
[2019-10-24 10:56] LABS: PLATELET 193 x1000/uL (130-400)
[2019-10-24] MEDS ORDERED: VANCOMYCIN 1250MG in DEXTROSE 5% WATER 250ML IV SCH (13:00)
[2019-10-25] VITALS (7 sets, daily range): BP systolic 113–130; BP diastolic 37–80
[2019-10-25] MEDS: METOCLOPRAMIDE HCL 10MG/2ML VIAL IV SCH ×4 (00:31→17:40)
[2019-10-25] MEDS: INSULIN GLARGINE UD 100 UNITS/ML SYR SUBCUT SCH ×3 (00:31→21:40)
[2019-10-25] MEDS: SUCRALFATE 1 G/10 ML UDC GT SCH ×4 (00:31→16:29)
[2019-10-25] MEDS: PIPERACILLIN/TAZOBACTAM 2.25 G in DEXTROSE 5% WATER 50 ML IV SCH ×3 (01:58→17:41)
[2019-10-25] MEDS: PANTOPRAZOLE SODIUM 40 MG/VIAL IV SCH (05:46)
[2019-10-25] MEDS: HYDRALAZINE HCL 100MG TABLET GT SCH ×3 (05:46→21:39)
[2019-10-25] MEDS: BLOOD SUGAR DIAGNOSTIC STRIP TEST SCH ×4 (06:19→20:40)
[2019-10-25] MEDS: LEVOTHYROXINE SODIUM 25MCG TABLET GT SCH (06:22)
[2019-10-25] MEDS: INSULIN LISPRO 100 UNITS/ML SUBCUT SCH ×4 (07:28→20:40)
[2019-10-25] MEDS: AMLODIPINE 5MG TABLET GT SCH ×2 (09:00→21:40)
[2019-10-25] MEDS: POTASSIUM CHLORIDE 10MEQ TABLET SR PO SCH (09:14)
[2019-10-25] MEDS: AMIODARONE HCL 200 MG TABLET GT SCH (09:14)
[2019-10-25] MEDS: FERROUS SULFATE 325MG TABLET PO SCH (09:14)
[2019-10-25] MEDS: FUROSEMIDE 100MG/10ML VIAL IVP SCH ×2 (09:16→21:39)
[2019-10-25] MEDS: MEMANTINE HCL 5MG TABLET GT SCH ×2 (09:19→21:40)
[2019-10-25] MEDS: ACETAMINOPHEN 500MG TABLET GT PRN (10:21)
[2019-10-25] MEDS: SODIUM HYPOCHLORITE 0.125% 473ML SOLUTION TOP SCH (11:44)
[2019-10-25] MEDS: FERROUS SULFATE 300MG/5ML UDC PO SCH ×2 (12:05→16:29)
[2019-10-25] MEDS: LANSOPRAZOLE 30MG DR CAPSULE GT SCH ×2 (14:17→21:46)
[2019-10-25] MEDS: SODIUM CHLORIDE 0.45% 1,000 ML IV SCH (15:33)
[2019-10-25] MEDS: MICAFUNGIN 100 MG in SODIUM CHLORIDE 0.9% 100 ML IV SCH (16:57)
[2019-10-25] MEDS ORDERED: PANTOPRAZOLE 40MG DR TABLET PO SCH (17:00)
[2019-10-25] MEDS ORDERED: VANCOMYCIN 1500MG in DEXTROSE 5% WATER 250ML IV NR (20:00)
[2019-10-26] VITALS: BP 127/46
[2019-10-26] MEDS: METOCLOPRAMIDE HCL 10MG/2ML VIAL IV SCH ×4 (00:07→17:31)
[2019-10-26] MEDS: SUCRALFATE 1 G/10 ML UDC GT SCH ×4 (00:07→17:31)
[2019-10-26] MEDS: PIPERACILLIN/TAZOBACTAM 2.25 G in DEXTROSE 5% WATER 50 ML IV SCH ×3 (01:10→17:31)
[2019-10-26] MEDS: HYDRALAZINE HCL 100MG TABLET GT SCH ×3 (05:41→22:09)
[2019-10-26] MEDS: LEVOTHYROXINE SODIUM 25MCG TABLET GT SCH (05:41)
[2019-10-26] MEDS: BLOOD SUGAR DIAGNOSTIC STRIP TEST SCH ×4 (05:41→21:00)
[2019-10-26] MEDS: LANSOPRAZOLE 30MG DR CAPSULE GT SCH ×2 (05:42→22:09)
[2019-10-26 06:00] VITALS: BP 142/57
[2019-10-26 06:33] LABS: BASOPHILS % 0.5 % (0.0-2.0); EOSINOPHILS % 3.1 % (0.0-5.0); HEMATOCRIT. 24.7 % (36.0-48.0); HEMOGLOBIN. 7.8 g/dL (12.0-16.0); LYMPHOCYTES % 12.5 % (20.0-50.0); MEAN CORPUSCULAR VOLUME 82.6 fL (81.0-99.0); MEAN PLATELET VOLUME 6.3 fl (7.4-10.4); MONOCYTES % 3.7 % (2.0-8.0); NEUTROPHILS % 80.2 % (40.0-76.0); PLATELET 176 x1000/uL (130-400); RED BLOOD CELL COUNT 2.99 mill/uL (4.2-5.4); RED CELL DISTRIBUTION WIDTH 19.7 % (11.6-14.6)
[2019-10-26] MEDS: INSULIN LISPRO 100 UNITS/ML SUBCUT SCH ×4 (07:30→21:00)
[2019-10-26] MEDS: FERROUS SULFATE 300MG/5ML UDC PO SCH ×3 (07:50→17:38)
[2019-10-26 08:00] VITALS: BP 107/36
[2019-10-26] MEDS: MEMANTINE HCL 5MG TABLET GT SCH ×2 (08:42→22:08)
[2019-10-26] MEDS: AMLODIPINE 5MG TABLET GT SCH ×2 (08:42→22:08)
[2019-10-26] MEDS: AMIODARONE HCL 200 MG TABLET GT SCH (08:43)
[2019-10-26] MEDS: POTASSIUM CHLORIDE 10MEQ TABLET SR PO SCH (08:43)
[2019-10-26] MEDS: FUROSEMIDE 100MG/10ML VIAL IVP SCH ×2 (09:26→22:10)
[2019-10-26] MEDS: INSULIN GLARGINE UD 100 UNITS/ML SYR SUBCUT SCH ×2 (09:27→22:13)
[2019-10-26] MEDS: SODIUM CHLORIDE 0.45% 1,000 ML IV SCH (09:27)
[2019-10-26] MEDS ORDERED: LIDOCAINE HCL/EPINEPHRINE 1%-EPI 1:100,000 20 ML VIAL INFIL NR (10:45)
[2019-10-26 12:00] VITALS: BP 131/48
[2019-10-26] MEDS: MICAFUNGIN 100 MG in SODIUM CHLORIDE 0.9% 100 ML IV SCH (15:52)
[2019-10-26 16:00] VITALS: BP 119/45
[2019-10-26 20:00] VITALS: BP 122/36
[2019-10-27] VITALS (7 sets, daily range): BP systolic 91–150; BP diastolic 31–58
[2019-10-27] MEDS: SUCRALFATE 1 G/10 ML UDC GT SCH ×4 (00:38→17:05)
[2019-10-27] MEDS: METOCLOPRAMIDE HCL 10MG/2ML VIAL IV SCH ×4 (00:38→17:05)
[2019-10-27] MEDS: PIPERACILLIN/TAZOBACTAM 2.25 G in DEXTROSE 5% WATER 50 ML IV SCH ×3 (02:57→17:05)
[2019-10-27] MEDS: INSULIN LISPRO 100 UNITS/ML SUBCUT SCH ×4 (06:40→21:00)
[2019-10-27] MEDS: BLOOD SUGAR DIAGNOSTIC STRIP TEST SCH ×4 (06:40→21:26)
[2019-10-27] MEDS: LEVOTHYROXINE SODIUM 25MCG TABLET GT SCH (06:40)
[2019-10-27] MEDS: LANSOPRAZOLE 30MG DR CAPSULE GT SCH ×2 (06:40→21:10)
[2019-10-27] MEDS: HYDRALAZINE HCL 100MG TABLET GT SCH ×3 (06:40→21:11)
[2019-10-27] MEDS: FERROUS SULFATE 300MG/5ML UDC PO SCH ×3 (06:41→17:05)
[2019-10-27] MEDS: SODIUM CHLORIDE 0.45% 1,000 ML IV SCH (07:00)
[2019-10-27] MEDS: AMLODIPINE 5MG TABLET GT SCH ×2 (08:18→21:11)
[2019-10-27] MEDS: POTASSIUM CHLORIDE 10MEQ TABLET SR PO SCH (08:23)
[2019-10-27] MEDS: FUROSEMIDE 100MG/10ML VIAL IVP SCH ×2 (08:23→21:11)
[2019-10-27] MEDS: AMIODARONE HCL 200 MG TABLET GT SCH (08:23)
[2019-10-27] MEDS: MEMANTINE HCL 5MG TABLET GT SCH ×2 (08:23→21:10)
[2019-10-27] MEDS: INSULIN GLARGINE UD 100 UNITS/ML SYR SUBCUT SCH ×2 (11:09→23:35)
[2019-10-27] MEDS: MICAFUNGIN 100 MG in SODIUM CHLORIDE 0.9% 100 ML IV SCH (15:03)
[2019-10-27 15:34] LABS: EOSINOPHILS % 2.7 % (0.0-5.0); HEMATOCRIT. 24.7 % (36.0-48.0); HEMOGLOBIN. 7.8 g/dL (12.0-16.0); LYMPHOCYTES % 7.9 % (20.0-50.0); MEAN CORPUSCULAR HEMOGLOBIN 25.7 pg (28.0-32.0); MEAN CORPUSCULAR VOLUME 81.7 fL (81.0-99.0); MONOCYTES % 4.8 % (2.0-8.0); NEUTROPHILS % 83.6 % (40.0-76.0); RED BLOOD CELL COUNT 3.02 mill/uL (4.2-5.4); RED CELL DISTRIBUTION WIDTH 19.9 % (11.6-14.6)
[2019-10-27 15:41] LABS: CHLORIDE 105 mEq/L (98-107)
[2019-10-28] VITALS: BP 137/60
[2019-10-28 04:00] VITALS: BP 108/44
[2019-10-28] MEDS: METOCLOPRAMIDE HCL 10MG/2ML VIAL IV SCH ×5 (06:00→23:01)
[2019-10-28] MEDS: SODIUM CHLORIDE 0.45% 1,000 ML IV SCH ×2 (07:01→21:24)
[2019-10-28] MEDS: LANSOPRAZOLE 30MG DR CAPSULE GT SCH ×2 (07:01→21:24)
[2019-10-28] MEDS: LEVOTHYROXINE SODIUM 25MCG TABLET GT SCH (07:01)
[2019-10-28] MEDS: HYDRALAZINE HCL 100MG TABLET GT SCH ×3 (07:02→21:24)
[2019-10-28] MEDS: SUCRALFATE 1 G/10 ML UDC GT SCH ×4 (07:07→23:01)
[2019-10-28] MEDS: BLOOD SUGAR DIAGNOSTIC STRIP TEST SCH ×4 (07:37→20:45)
[2019-10-28] MEDS: INSULIN LISPRO 100 UNITS/ML SUBCUT SCH ×4 (07:50→20:45)
[2019-10-28 08:00] VITALS: BP 138/52
[2019-10-28] MEDS: MEMANTINE HCL 5MG TABLET GT SCH ×2 (08:55→21:24)
[2019-10-28] MEDS: POTASSIUM CHLORIDE 10MEQ TABLET SR PO SCH (08:55)
[2019-10-28] MEDS: AMIODARONE HCL 200 MG TABLET GT SCH (08:55)
[2019-10-28] MEDS: FERROUS SULFATE 300MG/5ML UDC PO SCH ×3 (08:55→17:00)
[2019-10-28] MEDS: AMLODIPINE 5MG TABLET GT SCH ×2 (08:56→21:24)
[2019-10-28] MEDS: FUROSEMIDE 100MG/10ML VIAL IVP SCH ×2 (08:56→21:24)
[2019-10-28 09:02] LABS: BASOPHILS % 0.3 % (0.0-2.0); EOSINOPHILS % 2.5 % (0.0-5.0); HEMATOCRIT. 26.3 % (36.0-48.0); HEMOGLOBIN. 8.2 g/dL (12.0-16.0); LYMPHOCYTES % 10.9 % (20.0-50.0); MEAN CORPUSCULAR HEMOGLOBIN 25.8 pg (28.0-32.0); MEAN CORPUSCULAR VOLUME 82.6 fL (81.0-99.0); MEAN PLATELET VOLUME 6.3 fl (7.4-10.4); NEUTROPHILS % 82.3 % (40.0-76.0); PLATELET 173 x1000/uL (130-400); RED BLOOD CELL COUNT 3.19 mill/uL (4.2-5.4); RED CELL DISTRIBUTION WIDTH 20.3 % (11.6-14.6)
[2019-10-28] MEDS: INSULIN GLARGINE UD 100 UNITS/ML SYR SUBCUT SCH ×2 (11:05→21:25)
[2019-10-28] MEDS ORDERED: INSLIS SUBCUT (11:34)
[2019-10-28] MEDS ORDERED: LANTUSUD SUBCUT (11:34)
[2019-10-28 12:00] VITALS: BP 145/50
[2019-10-28] MEDS: MICAFUNGIN 100 MG in SODIUM CHLORIDE 0.9% 100 ML IV SCH (15:58)
[2019-10-28 16:00] VITALS: BP 130/46
[2019-10-28] MEDS: CEFEPIME 2,000 MG in DEXT 5% WATER 100 ML IV SCH (17:01)
[2019-10-28 20:00] VITALS: BP 161/53
[2019-10-29] VITALS (55 sets, daily range): BP systolic 65–193; BP diastolic 26–70
[2019-10-29] MEDS: ACETYLCYSTEINE 100MG/ML 10% VIAL 4ML INH SCH ×2 (01:21→13:27)
[2019-10-29 06:28] LABS: BASOPHILS % 0.6 % (0.0-2.0); EOSINOPHILS % 1.6 % (0.0-5.0); HEMATOCRIT. 29.2 % (36.0-48.0); LYMPHOCYTES % 15.9 % (20.0-50.0); MEAN CORPUSCULAR HEMOGLOBIN 25.7 pg (28.0-32.0); MEAN CORPUSCULAR VOLUME 83.7 fL (81.0-99.0); MEAN PLATELET VOLUME 6.7 fl (7.4-10.4); MONOCYTES % 2.9 % (2.0-8.0); PLATELET 207 x1000/uL (130-400); RED BLOOD CELL COUNT 3.49 mill/uL (4.2-5.4); RED CELL DISTRIBUTION WIDTH 20.5 % (11.6-14.6)
[2019-10-29] MEDS: SUCRALFATE 1 G/10 ML UDC GT SCH ×4 (06:55→23:15)
[2019-10-29] MEDS: LANSOPRAZOLE 30MG DR CAPSULE GT SCH ×2 (06:56→21:41)
[2019-10-29] MEDS: ACETAMINOPHEN 500MG TABLET GT PRN (06:56)
[2019-10-29] MEDS: BLOOD SUGAR DIAGNOSTIC STRIP TEST SCH ×4 (06:56→23:15)
[2019-10-29] MEDS: LEVOTHYROXINE SODIUM 25MCG TABLET GT SCH (06:56)
[2019-10-29] MEDS: METOCLOPRAMIDE HCL 10MG/2ML VIAL IV SCH ×4 (06:56→23:15)
[2019-10-29] MEDS: HYDRALAZINE HCL 100MG TABLET GT SCH ×3 (06:56→21:43)
[2019-10-29] MEDS ORDERED: IPRATROPIUM/ALBUTEROL 0.5-3(2.5)MG/3ML NEB HHN STA (07:55)
[2019-10-29] MEDS ORDERED: IPRATROPIUM/ALBUTEROL 0.5-3(2.5)MG/3ML NEB HHN PRN ×2 (08:00→12:15)
[2019-10-29] MEDS ORDERED: LIDOCAINE HCL 1% 20ML VIAL (Pyxis) INJ ONE (08:54)
[2019-10-29] MEDS ORDERED: SODIUM BICARBONATE 4% (2.4MEQ) 5ML VIAL IV ONE (08:54)
[2019-10-29] MEDS: AMLODIPINE 5MG TABLET GT SCH ×2 (09:00→21:00)
[2019-10-29] MEDS: AMIODARONE HCL 200 MG TABLET GT SCH (09:52)
[2019-10-29] MEDS: POTASSIUM CHLORIDE 10MEQ TABLET SR PO SCH (09:52)
[2019-10-29] MEDS: MEMANTINE HCL 5MG TABLET GT SCH ×2 (09:52→21:41)
[2019-10-29] MEDS: INSULIN LISPRO 100 UNITS/ML SUBCUT SCH ×4 (09:53→23:20)
[2019-10-29] MEDS: FERROUS SULFATE 300MG/5ML UDC PO SCH ×2 (09:53→18:29)
[2019-10-29] MEDS: INSULIN GLARGINE UD 100 UNITS/ML SYR SUBCUT SCH ×2 (09:55→21:43)
[2019-10-29] MEDS: CEFEPIME 2,000 MG in DEXT 5% WATER 100 ML IV SCH (10:39)
[2019-10-29] MEDS: FUROSEMIDE 100MG/10ML VIAL IVP SCH (10:40)
[2019-10-29] MEDS ORDERED: ALBUTEROL (0.083%) 2.5MG/3ML NEB HHN SCH (12:00)
[2019-10-29 12:52] LABS: BG BASE EXCESS 2.4 mmol/L (-2.0-2.0); BG CARBOXYHEMOGLOBIN 0.3 % (0.5-1.5); BG DEOXYHEMOGLOBIN 1.4 % (0.0-5.0); BG HCO3 ACT 27.1 mmol/L (22.0-26.0); BG METHEMOGLOBIN 0.4 % (0.0-1.5); BG OXYGEN SATURATION 98.6 % (92.0-98.5); BG OXYHEMOGLOBIN 97.9 % (94.0-97.0); BG PCO2 42.6 mmHg (35.0-45.0); BG PH 7.421 (7.350-7.450); BG PO2 137.1 mmHg (75.0-100.0); BG SAMPLE SITE RIGHT RADIAL; BG TIDAL VOLUME(mL) 500 mL; BG TOTAL HEMOGLOBIN 10.2 g/dL (12.0-18.0); BG VENT MODE VENT - A/C; BG VENT RATE 16 set
[2019-10-29] MEDS: MIDAZOLAM HCL 100 MG in DEXT 5% WATER 80 ML IV PRN (13:58)
[2019-10-29] MEDS: FENTANYL CITRATE/PF 1,000 MCG in SODIUM CHLORIDE 0.9% 80 ML IV PRN (13:59)
[2019-10-29] MEDS: MICAFUNGIN 100 MG in SODIUM CHLORIDE 0.9% 100 ML IV SCH (16:01)
[2019-10-29] MEDS: NOREPINEPHRINE 8 MG in DEXT 5% WATER 242 ML IV PRN (17:26)
[2019-10-29] MEDS: IPRATROPIUM/ALBUTEROL 0.5-3(2.5)MG/3ML NEB HHN SCH (20:27)
[2019-10-30] VITALS (96 sets, daily range): BP systolic 102–156; BP diastolic 23–96
[2019-10-30] MEDS: IPRATROPIUM/ALBUTEROL 0.5-3(2.5)MG/3ML NEB HHN SCH ×4 (01:20→20:45)
[2019-10-30] MEDS: METOCLOPRAMIDE HCL 10MG/2ML VIAL IV SCH ×4 (05:31→23:58)
[2019-10-30] MEDS: LANSOPRAZOLE 30MG DR CAPSULE GT SCH ×2 (05:31→22:02)
[2019-10-30] MEDS: SUCRALFATE 1 G/10 ML UDC GT SCH ×4 (05:31→23:58)
[2019-10-30] MEDS: LEVOTHYROXINE SODIUM 25MCG TABLET GT SCH (05:31)
[2019-10-30] MEDS: HYDRALAZINE HCL 100MG TABLET GT SCH ×3 (05:39→22:00)
[2019-10-30] MEDS: BLOOD SUGAR DIAGNOSTIC STRIP TEST SCH ×3 (05:43→18:14)
[2019-10-30] MEDS: INSULIN LISPRO 100 UNITS/ML SUBCUT SCH ×3 (05:43→18:00)
[2019-10-30] MEDS: ACETYLCYSTEINE 100MG/ML 10% VIAL 4ML INH SCH ×2 (08:54→16:28)
[2019-10-30] MEDS: AMLODIPINE 5MG TABLET GT SCH ×2 (09:00→21:00)
[2019-10-30] MEDS: MEMANTINE HCL 5MG TABLET GT SCH ×2 (09:32→22:02)
[2019-10-30] MEDS: AMIODARONE HCL 200 MG TABLET GT SCH (09:32)
[2019-10-30] MEDS: FERROUS SULFATE 300MG/5ML UDC PO SCH ×3 (09:33→18:07)
[2019-10-30] MEDS: CEFEPIME 2,000 MG in DEXT 5% WATER 100 ML IV SCH (09:34)
[2019-10-30] MEDS: INSULIN GLARGINE UD 100 UNITS/ML SYR SUBCUT SCH ×2 (09:37→22:04)
[2019-10-30] MEDS: FENTANYL CITRATE/PF 1,000 MCG in SODIUM CHLORIDE 0.9% 80 ML IV PRN (12:20)
[2019-10-30 13:08] LABS: BG BASE EXCESS 3.4 mmol/L (-2.0-2.0); BG CARBOXYHEMOGLOBIN 0.3 % (0.5-1.5); BG DEOXYHEMOGLOBIN 0.6 % (0.0-5.0); BG FRACTION INSPIRED OXYGEN 80; BG HCO3 ACT 28.3 mmol/L (22.0-26.0); BG METHEMOGLOBIN 0.3 % (0.0-1.5); BG OXYGEN SATURATION 99.4 % (92.0-98.5); BG OXYHEMOGLOBIN 98.8 % (94.0-97.0); BG PCO2 45.3 mmHg (35.0-45.0); BG PH 7.414 (7.350-7.450); BG PO2 283.4 mmHg (75.0-100.0); BG SAMPLE SITE RIGHT RADIAL; BG TIDAL VOLUME(mL) 500 mL; BG TOTAL HEMOGLOBIN 7.9 g/dL (12.0-18.0); BG VENT MODE VENT - A/C; BG VENT RATE 14 set
[2019-10-30 13:45] LABS: BASOPHILS % 0.2 % (0.0-2.0); EOSINOPHILS % 2.4 % (0.0-5.0); HEMATOCRIT. 23.4 % (36.0-48.0); HEMOGLOBIN. 7.1 g/dL (12.0-16.0); LYMPHOCYTES % 8.8 % (20.0-50.0); MEAN CORPUSCULAR VOLUME 85.1 fL (81.0-99.0); MONOCYTES % 4.3 % (2.0-8.0); NEUTROPHILS % 84.3 % (40.0-76.0); PLATELET 147 x1000/uL (130-400); RED BLOOD CELL COUNT 2.75 mill/uL (4.2-5.4); RED CELL DISTRIBUTION WIDTH 20.4 % (11.6-14.6)
[2019-10-30] MEDS: MICAFUNGIN 100 MG in SODIUM CHLORIDE 0.9% 100 ML IV SCH (16:07)
[2019-10-30] MEDS: DOCUSATE SODIUM SUGAR FREE 100MG/10ML UDC GT SCH (16:10)
[2019-10-30] MEDS: MIDAZOLAM HCL 100 MG in DEXT 5% WATER 80 ML IV PRN (16:14)
[2019-10-31] VITALS (99 sets, daily range): BP systolic 67–159; BP diastolic 36–67
[2019-10-31] MEDS: IPRATROPIUM/ALBUTEROL 0.5-3(2.5)MG/3ML NEB HHN SCH ×3 (00:48→20:32)
[2019-10-31] MEDS: ACETYLCYSTEINE 100MG/ML 10% VIAL 4ML INH SCH ×4 (00:49→08:49)
[2019-10-31 06:16] LABS: BASOPHILS % 0.8 % (0.0-2.0); EOSINOPHILS % 3.4 % (0.0-5.0); HEMATOCRIT. 23.1 % (36.0-48.0); HEMOGLOBIN. 7.3 g/dL (12.0-16.0); LYMPHOCYTES % 14.5 % (20.0-50.0); MEAN CORPUSCULAR HEMOGLOBIN 25.8 pg (28.0-32.0); MEAN PLATELET VOLUME 7.5 fl (7.4-10.4); MONOCYTES % 3.7 % (2.0-8.0); NEUTROPHILS % 77.6 % (40.0-76.0); PLATELET 150 x1000/uL (130-400); RED BLOOD CELL COUNT 2.82 mill/uL (4.2-5.4); RED CELL DISTRIBUTION WIDTH 20.5 % (11.6-14.6)
[2019-10-31] MEDS: SUCRALFATE 1 G/10 ML UDC GT SCH ×4 (07:01→23:54)
[2019-10-31] MEDS: FERROUS SULFATE 300MG/5ML UDC PO SCH ×3 (07:02→17:00)
[2019-10-31] MEDS: HYDRALAZINE HCL 100MG TABLET GT SCH ×3 (07:02→22:00)
[2019-10-31] MEDS: METOCLOPRAMIDE HCL 10MG/2ML VIAL IV SCH ×4 (07:03→23:54)
[2019-10-31] MEDS: LANSOPRAZOLE 30MG DR CAPSULE GT SCH ×2 (07:05→21:13)
[2019-10-31] MEDS: LEVOTHYROXINE SODIUM 25MCG TABLET GT SCH (07:06)
[2019-10-31 07:39] LABS: BG BASE EXCESS 2.8 mmol/L (-2.0-2.0); BG CARBOXYHEMOGLOBIN 0.3 % (0.5-1.5); BG DEOXYHEMOGLOBIN 0.5 % (0.0-5.0); BG HCO3 ACT 25.2 mmol/L (22.0-26.0); BG METHEMOGLOBIN 0.5 % (0.0-1.5); BG OXYGEN SATURATION 99.5 % (92.0-98.5); BG OXYHEMOGLOBIN 98.7 % (94.0-97.0); BG PCO2 29.5 mmHg (35.0-45.0); BG PO2 231.2 mmHg (75.0-100.0); BG SAMPLE SITE RIGHT RADIAL; BG TIDAL VOLUME(mL) 500 mL; BG TOTAL HEMOGLOBIN 7.4 g/dL (12.0-18.0); BG VENT MODE VENT - A/C; BG VENT RATE 14 set
[2019-10-31] MEDS: BLOOD SUGAR DIAGNOSTIC STRIP TEST SCH ×3 (07:45→11:50)
[2019-10-31] MEDS: INSULIN LISPRO 100 UNITS/ML SUBCUT SCH ×3 (07:45→11:50)
[2019-10-31] MEDS: CEFEPIME 2,000 MG in DEXT 5% WATER 100 ML IV SCH (09:01)
[2019-10-31] MEDS: AMIODARONE HCL 200 MG TABLET GT SCH (09:01)
[2019-10-31] MEDS: DOCUSATE SODIUM SUGAR FREE 100MG/10ML UDC GT SCH (09:01)
[2019-10-31] MEDS: MEMANTINE HCL 5MG TABLET GT SCH ×2 (09:01→21:13)
[2019-10-31] MEDS: AMLODIPINE 5MG TABLET GT SCH ×2 (09:02→21:00)
[2019-10-31] MEDS: INSULIN GLARGINE UD 100 UNITS/ML SYR SUBCUT SCH ×2 (09:06→22:46)
[2019-10-31] MEDS: NOREPINEPHRINE 8 MG in DEXT 5% WATER 242 ML IV PRN (22:24)
[2019-11-01] VITALS (77 sets, daily range): BP systolic 93–146; BP diastolic 35–94
[2019-11-01] MEDS: ACETYLCYSTEINE 100MG/ML 10% VIAL 4ML INH SCH ×4 (02:02→14:28)
[2019-11-01] MEDS: IPRATROPIUM/ALBUTEROL 0.5-3(2.5)MG/3ML NEB HHN SCH ×4 (02:05→21:07)
[2019-11-01] MEDS: BLOOD SUGAR DIAGNOSTIC STRIP TEST SCH ×5 (06:00→23:59)
[2019-11-01] MEDS: HYDRALAZINE HCL 100MG TABLET GT SCH ×3 (06:00→21:06)
[2019-11-01] MEDS: INSULIN LISPRO 100 UNITS/ML SUBCUT SCH ×5 (06:00→23:59)
[2019-11-01 06:09] LABS: HEMATOCRIT. 22.8 % (36.0-48.0); HEMOGLOBIN. 7.2 g/dL (12.0-16.0); MEAN CORPUSCULAR HEMOGLOBIN 26.5 pg (28.0-32.0); MEAN CORPUSCULAR VOLUME 83.6 fL (81.0-99.0); MEAN PLATELET VOLUME 7.6 fl (7.4-10.4); PLATELET 150 x1000/uL (130-400); RED BLOOD CELL COUNT 2.72 mill/uL (4.2-5.4); RED CELL DISTRIBUTION WIDTH 20.9 % (11.6-14.6)
[2019-11-01] MEDS: SUCRALFATE 1 G/10 ML UDC GT SCH ×4 (06:20→23:58)
[2019-11-01] MEDS: FERROUS SULFATE 300MG/5ML UDC PO SCH ×3 (06:20→17:19)
[2019-11-01] MEDS: METOCLOPRAMIDE HCL 10MG/2ML VIAL IV SCH ×4 (06:20→23:59)
[2019-11-01] MEDS: MIDAZOLAM HCL 100 MG in DEXT 5% WATER 80 ML IV PRN (07:08)
[2019-11-01] MEDS: LANSOPRAZOLE 30MG DR CAPSULE GT SCH ×2 (07:25→20:21)
[2019-11-01] MEDS: LEVOTHYROXINE SODIUM 25MCG TABLET GT SCH (07:25)
[2019-11-01 08:03] LABS: BG BASE EXCESS 1.7 mmol/L (-2.0-2.0); BG CARBOXYHEMOGLOBIN 0.8 % (0.5-1.5); BG DEOXYHEMOGLOBIN 1.1 % (0.0-5.0); BG HCO3 ACT 25.6 mmol/L (22.0-26.0); BG METHEMOGLOBIN 0.2 % (0.0-1.5); BG OXYGEN SATURATION 98.9 % (92.0-98.5); BG OXYHEMOGLOBIN 97.9 % (94.0-97.0); BG PCO2 36.3 mmHg (35.0-45.0); BG PH 7.466 (7.350-7.450); BG PO2 116.2 mmHg (75.0-100.0); BG SAMPLE SITE RIGHT RADIAL; BG TIDAL VOLUME(mL) 500 mL; BG TOTAL HEMOGLOBIN 6.5 g/dL (12.0-18.0); BG VENT MODE VENT - A/C; BG VENT RATE 10 set
[2019-11-01] MEDS: DOCUSATE SODIUM SUGAR FREE 100MG/10ML UDC GT SCH (08:59)
[2019-11-01] MEDS: CEFEPIME 2,000 MG in DEXT 5% WATER 100 ML IV SCH (08:59)
[2019-11-01] MEDS: MEMANTINE HCL 5MG TABLET GT SCH ×2 (08:59→20:21)
[2019-11-01] MEDS: AMIODARONE HCL 200 MG TABLET GT SCH (09:00)
[2019-11-01] MEDS: AMLODIPINE 5MG TABLET GT SCH ×2 (09:04→20:21)
[2019-11-01] MEDS: INSULIN GLARGINE UD 100 UNITS/ML SYR SUBCUT SCH ×2 (09:06→21:03)
[2019-11-01 11:53] LABS: PLATELET ESTIMATE NORMAL
[2019-11-01] MEDS: SODIUM HYPOCHLORITE 0.125% 473ML SOLUTION TOP SCH (17:19)
[2019-11-01] MEDS: MEROPENEM 1,000 MG in SODIUM CHLORIDE 0.9% 100 ML IV SCH (20:21)
[2019-11-01] MEDS: MICAFUNGIN 100 MG in SODIUM CHLORIDE 0.9% 100 ML IV SCH (20:21)
[2019-11-02] VITALS (44 sets, daily range): BP systolic 102–151; BP diastolic 34–101
[2019-11-02] MEDS: IPRATROPIUM/ALBUTEROL 0.5-3(2.5)MG/3ML NEB HHN SCH ×4 (02:00→20:15)
[2019-11-02] MEDS ORDERED: AMIKACIN 500MG in SODIUM CHLORIDE 0.9% 100ML IV NR (04:00)
[2019-11-02] MEDS: SUCRALFATE 1 G/10 ML UDC GT SCH ×3 (05:24→17:23)
[2019-11-02] MEDS: INSULIN LISPRO 100 UNITS/ML SUBCUT SCH ×2 (05:25→12:00)
[2019-11-02] MEDS: BLOOD SUGAR DIAGNOSTIC STRIP TEST SCH ×3 (05:25→17:24)
[2019-11-02] MEDS: HYDRALAZINE HCL 100MG TABLET GT SCH ×3 (05:25→21:09)
[2019-11-02] MEDS: METOCLOPRAMIDE HCL 10MG/2ML VIAL IV SCH ×3 (05:26→17:23)
[2019-11-02 05:37] LABS: HEMATOCRIT. 23.7 % (36.0-48.0); HEMOGLOBIN. 7.4 g/dL (12.0-16.0); MEAN CORPUSCULAR HEMOGLOBIN 26.1 pg (28.0-32.0); MEAN CORPUSCULAR VOLUME 83.5 fL (81.0-99.0); MEAN PLATELET VOLUME 7.5 fl (7.4-10.4); PLATELET 165 x1000/uL (130-400); RED BLOOD CELL COUNT 2.83 mill/uL (4.2-5.4); RED CELL DISTRIBUTION WIDTH 21.2 % (11.6-14.6)
[2019-11-02 06:24] LABS: PHOSPHORUS 0.3 mg/dL (2.5-4.9)
[2019-11-02] MEDS: MEMANTINE HCL 5MG TABLET GT SCH ×2 (08:46→21:09)
[2019-11-02] MEDS: LANSOPRAZOLE 30MG DR CAPSULE GT SCH ×2 (08:46→21:08)
[2019-11-02] MEDS: LEVOTHYROXINE SODIUM 25MCG TABLET GT SCH (08:46)
[2019-11-02] MEDS: AMIODARONE HCL 200 MG TABLET GT SCH (08:46)
[2019-11-02] MEDS: AMLODIPINE 5MG TABLET GT SCH ×2 (08:46→21:08)
[2019-11-02] MEDS: MEROPENEM 1,000 MG in SODIUM CHLORIDE 0.9% 100 ML IV SCH ×2 (08:46→20:07)
[2019-11-02] MEDS: DOCUSATE SODIUM SUGAR FREE 100MG/10ML UDC GT SCH (08:47)
[2019-11-02] MEDS: FERROUS SULFATE 300MG/5ML UDC PO SCH ×3 (08:47→17:23)
[2019-11-02 08:53] LABS: BG BASE EXCESS 1.8 mmol/L (-2.0-2.0); BG CARBOXYHEMOGLOBIN 0.5 % (0.5-1.5); BG DEOXYHEMOGLOBIN 1.4 % (0.0-5.0); BG FRACTION INSPIRED OXYGEN 35; BG HCO3 ACT 25.6 mmol/L (22.0-26.0); BG METHEMOGLOBIN 0.7 % (0.0-1.5); BG OXYGEN SATURATION 98.6 % (92.0-98.5); BG OXYHEMOGLOBIN 97.4 % (94.0-97.0); BG PCO2 36.1 mmHg (35.0-45.0); BG PH 7.468 (7.350-7.450); BG PO2 123.9 mmHg (75.0-100.0); BG SAMPLE SITE RIGHT RADIAL; BG TIDAL VOLUME(mL) 500 mL; BG TOTAL HEMOGLOBIN 7.3 g/dL (12.0-18.0); BG VENT MODE VENT - A/C; BG VENT RATE 18 set
[2019-11-02] MEDS ORDERED: SODIUM PHOS,M-BASIC-D-BASIC 10 MM in DEXT 5% WATER 246.6667 ML IV SCH (09:00)
[2019-11-02] MEDS: ACETYLCYSTEINE 100MG/ML 10% VIAL 4ML INH SCH ×2 (09:24→16:43)
[2019-11-02 09:25] LABS: PLATELET ESTIMATE NORMAL
[2019-11-02] MEDS: INSULIN GLARGINE UD 100 UNITS/ML SYR SUBCUT SCH ×2 (10:11→21:09)
[2019-11-02] MEDS: MICAFUNGIN 100 MG in SODIUM CHLORIDE 0.9% 100 ML IV SCH (20:07)
[2019-11-02] MEDS: SULFAMETHOXAZOLE/TRIMETHOPRIM 400/80MG TAB PO SCH (21:11)
[2019-11-03] VITALS (48 sets, daily range): BP systolic 100–156; BP diastolic 31–69
[2019-11-03] MEDS: ACETYLCYSTEINE 100MG/ML 10% VIAL 4ML INH SCH ×2 (00:09→08:48)
[2019-11-03] MEDS: IPRATROPIUM/ALBUTEROL 0.5-3(2.5)MG/3ML NEB HHN SCH ×4 (00:09→20:33)
[2019-11-03] MEDS: METOCLOPRAMIDE HCL 10MG/2ML VIAL IV SCH ×5 (00:28→23:46)
[2019-11-03] MEDS: BLOOD SUGAR DIAGNOSTIC STRIP TEST SCH ×5 (00:28→23:47)
[2019-11-03] MEDS: SUCRALFATE 1 G/10 ML UDC GT SCH ×5 (00:29→23:46)
[2019-11-03] MEDS: INSULIN LISPRO 100 UNITS/ML SUBCUT SCH ×5 (05:41→23:47)
[2019-11-03 05:53] LABS: HEMATOCRIT. 23.8 % (36.0-48.0); HEMOGLOBIN. 7.6 g/dL (12.0-16.0); MEAN CORPUSCULAR HEMOGLOBIN 26.8 pg (28.0-32.0); MEAN PLATELET VOLUME 7.8 fl (7.4-10.4); PLATELET 139 x1000/uL (130-400); RED BLOOD CELL COUNT 2.84 mill/uL (4.2-5.4); RED CELL DISTRIBUTION WIDTH 21.7 % (11.6-14.6)
[2019-11-03] MEDS: HYDRALAZINE HCL 100MG TABLET GT SCH ×3 (06:02→21:44)
[2019-11-03 06:09] LABS: PHOSPHORUS 1.1 mg/dL (2.5-4.9)
[2019-11-03] MEDS ORDERED: AMIKACIN SULFATE 400 MG in SODIUM CHLORIDE 0.9% 100 ML IV SCH (08:00)
[2019-11-03] MEDS: LANSOPRAZOLE 30MG DR CAPSULE GT SCH ×2 (08:32→20:02)
[2019-11-03] MEDS: FERROUS SULFATE 300MG/5ML UDC PO SCH ×3 (08:32→17:20)
[2019-11-03] MEDS: LEVOTHYROXINE SODIUM 25MCG TABLET GT SCH (08:33)
[2019-11-03] MEDS: AMIODARONE HCL 200 MG TABLET GT SCH (08:33)
[2019-11-03] MEDS: SULFAMETHOXAZOLE/TRIMETHOPRIM 400/80MG TAB PO SCH ×2 (08:33→20:02)
[2019-11-03] MEDS: AMLODIPINE 5MG TABLET GT SCH ×2 (08:33→21:43)
[2019-11-03] MEDS: MEMANTINE HCL 5MG TABLET GT SCH ×2 (08:34→20:01)
[2019-11-03] MEDS: MEROPENEM 1,000 MG in SODIUM CHLORIDE 0.9% 100 ML IV SCH (08:34)
[2019-11-03 08:58] LABS: PLATELET ESTIMATE NORMAL
[2019-11-03] MEDS ORDERED: SODIUM PHOS,M-BASIC-D-BASIC 20 MM in DEXT 5% WATER 243.3333 ML IV ONE (09:00)
[2019-11-03] MEDS: DOCUSATE SODIUM SUGAR FREE 100MG/10ML UDC GT SCH (09:00)
[2019-11-03] MEDS ORDERED: SODIUM PHOS,M-BASIC-D-BASIC 10 MM in DEXT 5% WATER 246.6667 ML IV SCH (09:00)
[2019-11-03] MEDS: INSULIN GLARGINE UD 100 UNITS/ML SYR SUBCUT SCH ×2 (09:22→21:45)
[2019-11-03] MEDS ORDERED: SODIUM PHOS,M-BASIC-D-BASIC 10 MM in DEXTROSE 5% WATER 250 ML IV SCH (13:00)
[2019-11-03] MEDS ORDERED: HEPARIN SODIUM 1,000 UNIT/1ML VIAL IV NR (14:15)
[2019-11-03] MEDS: MICAFUNGIN 100 MG in SODIUM CHLORIDE 0.9% 100 ML IV SCH (20:01)
[2019-11-03] MEDS: MEROPENEM 500 MG in SODIUM CHLORIDE 0.9% 50 ML IV SCH (20:01)
[2019-11-04] VITALS (40 sets, daily range): BP systolic 98–173; BP diastolic 35–63
[2019-11-04] MEDS: IPRATROPIUM/ALBUTEROL 0.5-3(2.5)MG/3ML NEB HHN SCH ×4 (01:30→20:31)
[2019-11-04] MEDS: SUCRALFATE 1 G/10 ML UDC GT SCH ×4 (05:35→23:11)
[2019-11-04] MEDS: INSULIN LISPRO 100 UNITS/ML SUBCUT SCH ×4 (05:35→23:11)
[2019-11-04] MEDS: METOCLOPRAMIDE HCL 10MG/2ML VIAL IV SCH ×4 (05:35→23:11)
[2019-11-04] MEDS: HYDRALAZINE HCL 100MG TABLET GT SCH ×3 (05:35→21:18)
[2019-11-04] MEDS: BLOOD SUGAR DIAGNOSTIC STRIP TEST SCH ×4 (05:35→23:11)
[2019-11-04 05:37] LABS: HEMOGLOBIN. 7.4 g/dL (12.0-16.0); MEAN CORPUSCULAR VOLUME 83.8 fL (81.0-99.0); MEAN PLATELET VOLUME 7.6 fl (7.4-10.4); PLATELET 156 x1000/uL (130-400); RED BLOOD CELL COUNT 2.74 mill/uL (4.2-5.4)
[2019-11-04 06:00] LABS: PHOSPHORUS 1.5 mg/dL (2.5-4.9)
[2019-11-04 08:06] LABS: BG BASE EXCESS 3.4 mmol/L (-2.0-2.0); BG CARBOXYHEMOGLOBIN 0.7 % (0.5-1.5); BG FRACTION INSPIRED OXYGEN 35; BG HCO3 ACT 27.8 mmol/L (22.0-26.0); BG METHEMOGLOBIN 0.3 % (0.0-1.5); BG PCO2 41.4 mmHg (35.0-45.0); BG PH 7.445 (7.350-7.450); BG PO2 134.6 mmHg (75.0-100.0); BG SAMPLE SITE LEFT RADIAL; BG TIDAL VOLUME(mL) 500 mL; BG TOTAL HEMOGLOBIN 7.3 g/dL (12.0-18.0); BG VENT MODE VENT - A/C; BG VENT RATE 12 set
[2019-11-04] MEDS: LANSOPRAZOLE 30MG DR CAPSULE GT SCH ×2 (08:12→20:57)
[2019-11-04] MEDS: LEVOTHYROXINE SODIUM 25MCG TABLET GT SCH (08:12)
[2019-11-04] MEDS: AMIODARONE HCL 200 MG TABLET GT SCH (08:12)
[2019-11-04] MEDS: MEMANTINE HCL 5MG TABLET GT SCH ×2 (08:12→20:57)
[2019-11-04] MEDS: DOCUSATE SODIUM SUGAR FREE 100MG/10ML UDC GT SCH (08:13)
[2019-11-04] MEDS: FERROUS SULFATE 300MG/5ML UDC PO SCH ×3 (08:13→18:20)
[2019-11-04] MEDS: SULFAMETHOXAZOLE/TRIMETHOPRIM 400/80MG TAB PO SCH ×2 (08:13→20:57)
[2019-11-04] MEDS: MEROPENEM 500 MG in SODIUM CHLORIDE 0.9% 50 ML IV SCH ×2 (08:13→20:29)
[2019-11-04] MEDS: AMLODIPINE 5MG TABLET GT SCH ×2 (08:13→20:57)
[2019-11-04] MEDS ORDERED: SODIUM PHOS,M-BASIC-D-BASIC 20 MM in DEXT 5% WATER 243.3333 ML IV SCH (09:00)
[2019-11-04] MEDS: INSULIN GLARGINE UD 100 UNITS/ML SYR SUBCUT SCH ×2 (09:43→21:19)
[2019-11-04 11:09] LABS: NUCLEATED RED BLOOD CELLS 1 /100 WBC; PLATELET ESTIMATE NORMAL
[2019-11-04] MEDS: MICAFUNGIN 100 MG in SODIUM CHLORIDE 0.9% 100 ML IV SCH (20:29)
[2019-11-05] VITALS (68 sets, daily range): BP systolic 71–162; BP diastolic 38–93
[2019-11-05] MEDS: IPRATROPIUM/ALBUTEROL 0.5-3(2.5)MG/3ML NEB HHN SCH ×4 (01:42→21:10)
[2019-11-05] MEDS: SUCRALFATE 1 G/10 ML UDC GT SCH ×4 (05:31→23:36)
[2019-11-05] MEDS: BLOOD SUGAR DIAGNOSTIC STRIP TEST SCH ×4 (05:31→23:36)
[2019-11-05] MEDS: METOCLOPRAMIDE HCL 10MG/2ML VIAL IV SCH ×4 (05:31→23:36)
[2019-11-05] MEDS: HYDRALAZINE HCL 100MG TABLET GT SCH ×3 (05:31→22:09)
[2019-11-05 05:48] LABS: HEMATOCRIT. 25.3 % (36.0-48.0); HEMOGLOBIN. 8.1 g/dL (12.0-16.0); MEAN CORPUSCULAR HEMOGLOBIN 26.9 pg (28.0-32.0); MEAN CORPUSCULAR VOLUME 83.8 fL (81.0-99.0); MEAN PLATELET VOLUME 7.4 fl (7.4-10.4); PLATELET 167 x1000/uL (130-400); RED BLOOD CELL COUNT 3.02 mill/uL (4.2-5.4); RED CELL DISTRIBUTION WIDTH 22.4 % (11.6-14.6)
[2019-11-05] MEDS: INSULIN LISPRO 100 UNITS/ML SUBCUT SCH ×4 (06:00→23:36)
[2019-11-05 06:35] LABS: PHOSPHORUS 2.4 mg/dL (2.5-4.9)
[2019-11-05] MEDS: NOREPINEPHRINE 8 MG in DEXT 5% WATER 242 ML IV PRN (08:04)
[2019-11-05] MEDS: DOCUSATE SODIUM SUGAR FREE 100MG/10ML UDC GT SCH (08:04)
[2019-11-05] MEDS: FERROUS SULFATE 300MG/5ML UDC PO SCH ×3 (08:05→18:24)
[2019-11-05] MEDS: LANSOPRAZOLE 30MG DR CAPSULE GT SCH ×2 (08:05→20:20)
[2019-11-05] MEDS: AMIODARONE HCL 200 MG TABLET GT SCH (08:05)
[2019-11-05] MEDS: LEVOTHYROXINE SODIUM 25MCG TABLET GT SCH (08:05)
[2019-11-05] MEDS: AMLODIPINE 5MG TABLET GT SCH ×2 (08:05→20:20)
[2019-11-05] MEDS: SULFAMETHOXAZOLE/TRIMETHOPRIM 400/80MG TAB PO SCH ×2 (08:05→20:20)
[2019-11-05] MEDS: MEMANTINE HCL 5MG TABLET GT SCH ×2 (08:05→20:20)
[2019-11-05 10:11] LABS: PLATELET ESTIMATE NORMAL
[2019-11-05] MEDS: MEROPENEM 500 MG in SODIUM CHLORIDE 0.9% 50 ML IV SCH ×2 (10:15→20:20)
[2019-11-05] MEDS: INSULIN GLARGINE UD 100 UNITS/ML SYR SUBCUT SCH ×2 (10:16→22:10)
[2019-11-05 12:54] LABS: BG BASE EXCESS 3.7 mmol/L (-2.0-2.0); BG CARBOXYHEMOGLOBIN 0.6 % (0.5-1.5); BG DEOXYHEMOGLOBIN 1.6 % (0.0-5.0); BG FRACTION INSPIRED OXYGEN 35; BG HCO3 ACT 28.7 mmol/L (22.0-26.0); BG OXYGEN SATURATION 98.4 % (92.0-98.5); BG OXYHEMOGLOBIN 97.8 % (94.0-97.0); BG PCO2 46.5 mmHg (35.0-45.0); BG PH 7.409 (7.350-7.450); BG PO2 125.1 mmHg (75.0-100.0); BG PRESSURE SUPPORT 8; BG SAMPLE SITE RIGHT RADIAL; BG TOTAL HEMOGLOBIN 7.9 g/dL (12.0-18.0); BG VENT MODE VENT - CPAP
[2019-11-05] MEDS: SODIUM HYPOCHLORITE 0.125% 473ML SOLUTION TOP SCH (15:52)
[2019-11-05] MEDS ORDERED: AMIKACIN SULFATE 400 MG in SODIUM CHLORIDE 0.9% 100 ML IV SCH (17:00)
[2019-11-05] MEDS: MICAFUNGIN 100 MG in SODIUM CHLORIDE 0.9% 100 ML IV SCH (20:19)
[2019-11-06] VITALS (46 sets, daily range): BP systolic 98–146; BP diastolic 34–64
[2019-11-06] MEDS: IPRATROPIUM/ALBUTEROL 0.5-3(2.5)MG/3ML NEB HHN SCH ×3 (01:59→15:01)
[2019-11-06] MEDS: INSULIN LISPRO 100 UNITS/ML SUBCUT SCH ×3 (06:00→17:45)
[2019-11-06 06:05] LABS: HEMATOCRIT. 27.5 % (36.0-48.0); HEMOGLOBIN. 8.7 g/dL (12.0-16.0); MEAN CORPUSCULAR HEMOGLOBIN 26.6 pg (28.0-32.0); MEAN CORPUSCULAR VOLUME 84.4 fL (81.0-99.0); MEAN PLATELET VOLUME 7.3 fl (7.4-10.4); PLATELET 162 x1000/uL (130-400); RED BLOOD CELL COUNT 3.26 mill/uL (4.2-5.4); RED CELL DISTRIBUTION WIDTH 22.9 % (11.6-14.6)
[2019-11-06] MEDS: SUCRALFATE 1 G/10 ML UDC GT SCH ×4 (06:14→23:57)
[2019-11-06] MEDS: METOCLOPRAMIDE HCL 10MG/2ML VIAL IV SCH ×4 (06:15→23:57)
[2019-11-06] MEDS: HYDRALAZINE HCL 100MG TABLET GT SCH ×3 (06:15→22:11)
[2019-11-06] MEDS: BLOOD SUGAR DIAGNOSTIC STRIP TEST SCH ×4 (06:15→23:57)
[2019-11-06] MEDS: SULFAMETHOXAZOLE/TRIMETHOPRIM 400/80MG TAB PO SCH ×2 (09:09→21:00)
[2019-11-06] MEDS: DOCUSATE SODIUM SUGAR FREE 100MG/10ML UDC GT SCH (09:09)
[2019-11-06] MEDS: LEVOTHYROXINE SODIUM 25MCG TABLET GT SCH (09:09)
[2019-11-06] MEDS: MEROPENEM 500 MG in SODIUM CHLORIDE 0.9% 50 ML IV SCH ×2 (09:09→21:00)
[2019-11-06] MEDS: FERROUS SULFATE 300MG/5ML UDC PO SCH ×3 (09:09→17:45)
[2019-11-06] MEDS: AMIODARONE HCL 200 MG TABLET GT SCH (09:10)
[2019-11-06] MEDS: AMLODIPINE 5MG TABLET GT SCH ×2 (09:10→21:00)
[2019-11-06] MEDS: MEMANTINE HCL 5MG TABLET GT SCH ×2 (09:10→21:00)
[2019-11-06] MEDS: LANSOPRAZOLE 30MG DR CAPSULE GT SCH ×2 (09:10→21:00)
[2019-11-06 09:23] LABS: NUCLEATED RED BLOOD CELLS 2 /100 WBC
[2019-11-06 09:24] LABS: PLATELET ESTIMATE NORMAL
[2019-11-06] MEDS: INSULIN GLARGINE UD 100 UNITS/ML SYR SUBCUT SCH ×2 (10:15→21:20)
[2019-11-06] MEDS: SODIUM HYPOCHLORITE 0.125% 473ML SOLUTION TOP SCH (11:07)
[2019-11-06] MEDS: ACETAMINOPHEN 650MG/20.3ML UDC GT PRN (11:11)
[2019-11-06] MEDS: MICAFUNGIN 100 MG in SODIUM CHLORIDE 0.9% 100 ML IV SCH (20:14)
[2019-11-07] VITALS (17 sets, daily range): BP systolic 104–141; BP diastolic 41–54
[2019-11-07] MEDS: IPRATROPIUM/ALBUTEROL 0.5-3(2.5)MG/3ML NEB HHN SCH ×4 (02:26→20:09)
[2019-11-07] MEDS: BLOOD SUGAR DIAGNOSTIC STRIP TEST SCH ×3 (05:31→18:57)
[2019-11-07] MEDS: METOCLOPRAMIDE HCL 10MG/2ML VIAL IV SCH ×3 (05:31→18:00)
[2019-11-07] MEDS: HYDRALAZINE HCL 100MG TABLET GT SCH ×3 (05:31→22:00)
[2019-11-07] MEDS: SUCRALFATE 1 G/10 ML UDC GT SCH ×3 (05:31→18:56)
[2019-11-07] MEDS: INSULIN LISPRO 100 UNITS/ML SUBCUT SCH ×4 (05:41→18:00)
[2019-11-07] MEDS: LANSOPRAZOLE 30MG DR CAPSULE GT SCH ×2 (06:55→21:16)
[2019-11-07] MEDS: LEVOTHYROXINE SODIUM 25MCG TABLET GT SCH (06:55)
[2019-11-07 07:20] LABS: HEMATOCRIT. 21.7 % (36.0-48.0); MEAN CORPUSCULAR VOLUME 83.2 fL (81.0-99.0); MEAN PLATELET VOLUME 7.2 fl (7.4-10.4); PLATELET 137 x1000/uL (130-400); RED BLOOD CELL COUNT 2.61 mill/uL (4.2-5.4); RED CELL DISTRIBUTION WIDTH 22.8 % (11.6-14.6)
[2019-11-07] MEDS: FERROUS SULFATE 300MG/5ML UDC PO SCH ×3 (08:45→18:56)
[2019-11-07] MEDS: MEROPENEM 500 MG in SODIUM CHLORIDE 0.9% 50 ML IV SCH ×2 (08:46→21:16)
[2019-11-07] MEDS: AMIODARONE HCL 200 MG TABLET GT SCH (08:46)
[2019-11-07] MEDS: SULFAMETHOXAZOLE/TRIMETHOPRIM 400/80MG TAB PO SCH ×2 (08:46→21:17)
[2019-11-07] MEDS: DOCUSATE SODIUM SUGAR FREE 100MG/10ML UDC GT SCH (08:46)
[2019-11-07] MEDS: MEMANTINE HCL 5MG TABLET GT SCH ×2 (08:46→21:16)
[2019-11-07 08:49] LABS: HEMOGLOBIN. 6.8 g/dL (12.0-16.0)
[2019-11-07] MEDS: AMLODIPINE 5MG TABLET GT SCH ×2 (09:00→21:00)
[2019-11-07] MEDS: INSULIN GLARGINE UD 100 UNITS/ML SYR SUBCUT SCH ×2 (11:14→22:00)
[2019-11-07 15:13] LABS: PLATELET ESTIMATE NORMAL
[2019-11-07 23:08] LABS: HEMATOCRIT 25.5 % (36.0-48.0); HEMOGLOBIN 8.2 g/dL (12.0-16.0)
[2019-11-08] VITALS (10 sets, daily range): BP systolic 110–146; BP diastolic 35–87
[2019-11-08] MEDS: IPRATROPIUM/ALBUTEROL 0.5-3(2.5)MG/3ML NEB HHN SCH ×4 (01:33→20:42)
[2019-11-08] MEDS: BLOOD SUGAR DIAGNOSTIC STRIP TEST SCH ×4 (06:00→17:49)
[2019-11-08] MEDS: INSULIN LISPRO 100 UNITS/ML SUBCUT SCH ×4 (06:00→17:49)
[2019-11-08] MEDS: LANSOPRAZOLE 30MG DR CAPSULE GT SCH ×2 (06:30→21:26)
[2019-11-08] MEDS: LEVOTHYROXINE SODIUM 25MCG TABLET GT SCH (06:30)
[2019-11-08] MEDS: METOCLOPRAMIDE HCL 10MG/2ML VIAL IV SCH ×4 (06:30→17:49)
[2019-11-08] MEDS: SUCRALFATE 1 G/10 ML UDC GT SCH ×4 (06:30→17:49)
[2019-11-08] MEDS: HYDRALAZINE HCL 100MG TABLET GT SCH ×3 (06:36→21:27)
[2019-11-08 07:32] LABS: HEMATOCRIT. 25.5 % (36.0-48.0); HEMOGLOBIN. 8.2 g/dL (12.0-16.0); MEAN CORPUSCULAR HEMOGLOBIN 27.3 pg (28.0-32.0); MEAN CORPUSCULAR VOLUME 84.9 fL (81.0-99.0); MEAN PLATELET VOLUME 7.2 fl (7.4-10.4); PLATELET 133 x1000/uL (130-400); RED BLOOD CELL COUNT 3.01 mill/uL (4.2-5.4); RED CELL DISTRIBUTION WIDTH 21.3 % (11.6-14.6)
[2019-11-08] MEDS: FERROUS SULFATE 300MG/5ML UDC PO SCH ×3 (08:27→17:49)
[2019-11-08] MEDS: AMLODIPINE 5MG TABLET GT SCH ×2 (08:27→21:27)
[2019-11-08] MEDS: MEMANTINE HCL 5MG TABLET GT SCH ×2 (08:27→21:27)
[2019-11-08] MEDS: DOCUSATE SODIUM SUGAR FREE 100MG/10ML UDC GT SCH (08:27)
[2019-11-08] MEDS: SULFAMETHOXAZOLE/TRIMETHOPRIM 400/80MG TAB PO SCH ×2 (08:27→21:27)
[2019-11-08] MEDS: AMIODARONE HCL 200 MG TABLET GT SCH (08:47)
[2019-11-08] MEDS: MEROPENEM 500 MG in SODIUM CHLORIDE 0.9% 50 ML IV SCH ×2 (11:09→21:26)
[2019-11-08] MEDS: INSULIN GLARGINE UD 100 UNITS/ML SYR SUBCUT SCH ×2 (11:09→21:48)
[2019-11-08] MEDS: ACETAMINOPHEN 650MG/20.3ML UDC GT PRN (18:00)
[2019-11-09] VITALS (11 sets, daily range): BP systolic 107–153; BP diastolic 39–98
[2019-11-09] MEDS: BLOOD SUGAR DIAGNOSTIC STRIP TEST SCH ×4 (00:24→17:45)
[2019-11-09] MEDS: METOCLOPRAMIDE HCL 10MG/2ML VIAL IV SCH ×4 (00:24→17:45)
[2019-11-09] MEDS: SUCRALFATE 1 G/10 ML UDC GT SCH ×4 (00:24→17:45)
[2019-11-09] MEDS: ACETYLCYSTEINE 100MG/ML 10% VIAL 4ML INH SCH (00:48)
[2019-11-09] MEDS: IPRATROPIUM/ALBUTEROL 0.5-3(2.5)MG/3ML NEB HHN SCH ×4 (02:37→20:46)
[2019-11-09] MEDS: LANSOPRAZOLE 30MG DR CAPSULE GT SCH ×2 (05:16→19:55)
[2019-11-09] MEDS: HYDRALAZINE HCL 100MG TABLET GT SCH ×3 (05:17→19:55)
[2019-11-09] MEDS: INSULIN LISPRO 100 UNITS/ML SUBCUT SCH ×4 (05:17→17:55)
[2019-11-09 07:02] LABS: PLATELET ESTIMATE NORMAL
[2019-11-09] MEDS: FERROUS SULFATE 300MG/5ML UDC PO SCH ×3 (08:30→17:45)
[2019-11-09] MEDS: AMIODARONE HCL 200 MG TABLET GT SCH (08:30)
[2019-11-09] MEDS: DOCUSATE SODIUM SUGAR FREE 100MG/10ML UDC GT SCH (08:30)
[2019-11-09] MEDS: MEROPENEM 500 MG in SODIUM CHLORIDE 0.9% 50 ML IV SCH (08:31)
[2019-11-09] MEDS: AMLODIPINE 5MG TABLET GT SCH ×2 (08:31→19:55)
[2019-11-09] MEDS: LEVOTHYROXINE SODIUM 25MCG TABLET GT SCH (08:31)
[2019-11-09] MEDS: MEMANTINE HCL 5MG TABLET GT SCH ×2 (08:31→19:54)
[2019-11-09] MEDS: SULFAMETHOXAZOLE/TRIMETHOPRIM 400/80MG TAB PO SCH ×2 (08:31→19:55)
[2019-11-09 09:39] LABS: HEMOGLOBIN. 8.4 g/dL (12.0-16.0); MEAN CORPUSCULAR HEMOGLOBIN 27.1 pg (28.0-32.0); MEAN CORPUSCULAR VOLUME 84.3 fL (81.0-99.0); MEAN PLATELET VOLUME 7.6 fl (7.4-10.4); PLATELET 120 x1000/uL (130-400); RED BLOOD CELL COUNT 3.09 mill/uL (4.2-5.4); RED CELL DISTRIBUTION WIDTH 21.4 % (11.6-14.6)
[2019-11-09] MEDS: INSULIN GLARGINE UD 100 UNITS/ML SYR SUBCUT SCH ×2 (10:56→22:07)
[2019-11-09 13:39] LABS: PLATELET ESTIMATE SLIGHTLY DECREASED
[2019-11-10] VITALS (12 sets, daily range): BP systolic 98–121; BP diastolic 38–48
[2019-11-10] MEDS: SUCRALFATE 1 G/10 ML UDC GT SCH ×5 (00:01→23:56)
[2019-11-10] MEDS: BLOOD SUGAR DIAGNOSTIC STRIP TEST SCH ×5 (00:01→23:56)
[2019-11-10] MEDS: METOCLOPRAMIDE HCL 10MG/2ML VIAL IV SCH ×5 (00:01→23:56)
[2019-11-10] MEDS: IPRATROPIUM/ALBUTEROL 0.5-3(2.5)MG/3ML NEB HHN SCH ×4 (00:48→21:08)
[2019-11-10] MEDS: INSULIN LISPRO 100 UNITS/ML SUBCUT SCH ×5 (05:08→23:56)
[2019-11-10] MEDS: HYDRALAZINE HCL 100MG TABLET GT SCH ×3 (05:08→22:00)
[2019-11-10 07:14] LABS: HEMATOCRIT. 26.9 % (36.0-48.0); HEMOGLOBIN. 8.6 g/dL (12.0-16.0); MEAN CORPUSCULAR HEMOGLOBIN 27.3 pg (28.0-32.0); MEAN CORPUSCULAR VOLUME 85.4 fL (81.0-99.0); MEAN PLATELET VOLUME 7.3 fl (7.4-10.4); PLATELET 103 x1000/uL (130-400); RED BLOOD CELL COUNT 3.16 mill/uL (4.2-5.4); RED CELL DISTRIBUTION WIDTH 21.3 % (11.6-14.6)
[2019-11-10] MEDS: SODIUM HYPOCHLORITE 0.125% 473ML SOLUTION TOP SCH (07:30)
[2019-11-10] MEDS: AMLODIPINE 5MG TABLET GT SCH ×2 (09:00→21:00)
[2019-11-10] MEDS: DOCUSATE SODIUM SUGAR FREE 100MG/10ML UDC GT SCH (09:03)
[2019-11-10] MEDS: FERROUS SULFATE 300MG/5ML UDC PO SCH ×3 (09:03→18:25)
[2019-11-10] MEDS: MEROPENEM 500MG in NORMAL SALINE 50ML IV SCH (09:03)
[2019-11-10] MEDS: LEVOTHYROXINE SODIUM 25MCG TABLET GT SCH (09:03)
[2019-11-10] MEDS: LANSOPRAZOLE 30MG DR CAPSULE GT SCH ×2 (09:03→22:01)
[2019-11-10] MEDS: AMIODARONE HCL 200 MG TABLET GT SCH (09:09)
[2019-11-10] MEDS: MEMANTINE HCL 5MG TABLET GT SCH ×2 (09:09→22:01)
[2019-11-10] MEDS: ACETYLCYSTEINE 100MG/ML 10% VIAL 4ML INH SCH ×2 (09:20→14:46)
[2019-11-10 19:54] LABS: PLATELET ESTIMATE DECREASED
[2019-11-10] MEDS ORDERED: AMIKACIN 500MG in SODIUM CHLORIDE 0.9% 100ML IV SCH (21:00)
[2019-11-10] MEDS: SULFAMETHOXAZOLE/TRIMETHOPRIM 400/80MG TAB PO SCH (22:02)
[2019-11-11] VITALS (13 sets, daily range): BP systolic 99–143; BP diastolic 35–56
[2019-11-11] MEDS: ACETYLCYSTEINE 100MG/ML 10% VIAL 4ML INH SCH (01:16)
[2019-11-11] MEDS: IPRATROPIUM/ALBUTEROL 0.5-3(2.5)MG/3ML NEB HHN SCH ×3 (01:16→20:52)
[2019-11-11] MEDS: METOCLOPRAMIDE HCL 10MG/2ML VIAL IV SCH ×4 (05:51→23:18)
[2019-11-11] MEDS: SUCRALFATE 1 G/10 ML UDC GT SCH ×4 (05:51→23:18)
[2019-11-11] MEDS: HYDRALAZINE HCL 100MG TABLET GT SCH ×3 (05:51→20:39)
[2019-11-11] MEDS: INSULIN LISPRO 100 UNITS/ML SUBCUT SCH ×4 (06:00→23:18)
[2019-11-11 06:02] LABS: HEMATOCRIT. 27.4 % (36.0-48.0); HEMOGLOBIN. 8.8 g/dL (12.0-16.0); MEAN CORPUSCULAR HEMOGLOBIN 26.7 pg (28.0-32.0); MEAN CORPUSCULAR VOLUME 83.4 fL (81.0-99.0); MEAN PLATELET VOLUME 7.3 fl (7.4-10.4); PLATELET 127 x1000/uL (130-400); RED BLOOD CELL COUNT 3.28 mill/uL (4.2-5.4); RED CELL DISTRIBUTION WIDTH 21.1 % (11.6-14.6)
[2019-11-11] MEDS: BLOOD SUGAR DIAGNOSTIC STRIP TEST SCH ×4 (06:45→23:18)
[2019-11-11] MEDS: SULFAMETHOXAZOLE/TRIMETHOPRIM 400/80MG TAB PO SCH ×2 (08:56→20:39)
[2019-11-11] MEDS: DOCUSATE SODIUM SUGAR FREE 100MG/10ML UDC GT SCH (08:56)
[2019-11-11] MEDS: FERROUS SULFATE 300MG/5ML UDC PO SCH ×3 (08:56→17:38)
[2019-11-11] MEDS: AMLODIPINE 5MG TABLET GT SCH ×2 (08:57→20:38)
[2019-11-11] MEDS: LEVOTHYROXINE SODIUM 25MCG TABLET GT SCH (08:57)
[2019-11-11] MEDS: MEROPENEM 500MG in NORMAL SALINE 50ML IV SCH (08:57)
[2019-11-11] MEDS: LANSOPRAZOLE 30MG DR CAPSULE GT SCH ×2 (08:57→20:39)
[2019-11-11] MEDS: MEMANTINE HCL 5MG TABLET GT SCH ×2 (09:04→20:38)
[2019-11-11] MEDS: AMIODARONE HCL 200 MG TABLET GT SCH (09:04)
[2019-11-11] MEDS: INSULIN GLARGINE UD 100 UNITS/ML SYR SUBCUT SCH (09:46)
[2019-11-11 13:49] LABS: NUCLEATED RED BLOOD CELLS 2 /100 WBC
[2019-11-11 13:51] LABS: PLATELET ESTIMATE SLIGHTLY DECREASED
[2019-11-12] VITALS (10 sets, daily range): BP systolic 95–131; BP diastolic 29–45
[2019-11-12] MEDS: ACETYLCYSTEINE 100MG/ML 10% VIAL 4ML INH SCH ×3 (00:37→13:40)
[2019-11-12] MEDS: IPRATROPIUM/ALBUTEROL 0.5-3(2.5)MG/3ML NEB HHN SCH ×4 (00:38→21:59)
[2019-11-12] MEDS: BLOOD SUGAR DIAGNOSTIC STRIP TEST SCH ×4 (06:00→23:22)
[2019-11-12 07:59] LABS: HEMATOCRIT. 28.2 % (36.0-48.0); HEMOGLOBIN. 9.1 g/dL (12.0-16.0); MEAN PLATELET VOLUME 7.6 fl (7.4-10.4); PLATELET 136 x1000/uL (130-400); RED BLOOD CELL COUNT 3.36 mill/uL (4.2-5.4); RED CELL DISTRIBUTION WIDTH 20.6 % (11.6-14.6)
[2019-11-12] MEDS: AMLODIPINE 5MG TABLET GT SCH ×2 (09:00→20:27)
[2019-11-12] MEDS ORDERED: MEROPENEM 500MG in NORMAL SALINE 50ML IV SCH (09:00)
[2019-11-12] MEDS: MEMANTINE HCL 5MG TABLET GT SCH ×2 (09:53→20:25)
[2019-11-12] MEDS: SULFAMETHOXAZOLE/TRIMETHOPRIM 400/80MG TAB PO SCH ×2 (09:53→20:26)
[2019-11-12] MEDS: DOCUSATE SODIUM SUGAR FREE 100MG/10ML UDC GT SCH (09:53)
[2019-11-12] MEDS: FERROUS SULFATE 300MG/5ML UDC PO SCH ×3 (09:53→17:22)
[2019-11-12] MEDS: LEVOTHYROXINE SODIUM 25MCG TABLET GT SCH (09:54)
[2019-11-12] MEDS: LANSOPRAZOLE 30MG DR CAPSULE GT SCH ×2 (09:54→20:26)
[2019-11-12] MEDS: AMIODARONE HCL 200 MG TABLET GT SCH (09:54)
[2019-11-12] MEDS: MEROPENEM 500MG in NORMAL SALINE 50ML IV SCH (09:57)
[2019-11-12] MEDS: INSULIN GLARGINE UD 100 UNITS/ML SYR SUBCUT SCH (10:51)
[2019-11-12] MEDS: INSULIN LISPRO 100 UNITS/ML SUBCUT SCH ×4 (11:43→23:22)
[2019-11-12] MEDS: HYDRALAZINE HCL 100MG TABLET GT SCH ×2 (13:29→21:59)
[2019-11-12] MEDS: SUCRALFATE 1 G/10 ML UDC GT SCH ×4 (13:30→23:22)
[2019-11-12] MEDS: METOCLOPRAMIDE HCL 10MG/2ML VIAL IV SCH ×4 (13:31→23:22)
[2019-11-12 13:44] LABS: PLATELET ESTIMATE NORMAL
[2019-11-12] MEDS ORDERED: LIDOCAINE HCL/EPINEPHRINE 1%-EPI 1:100,000 20 ML VIAL INFIL NR (16:00)
[2019-11-13] VITALS (11 sets, daily range): BP systolic 102–149; BP diastolic 26–58
[2019-11-13] MEDS: ACETYLCYSTEINE 100MG/ML 10% VIAL 4ML INH SCH ×4 (01:02→22:25)
[2019-11-13] MEDS: IPRATROPIUM/ALBUTEROL 0.5-3(2.5)MG/3ML NEB HHN SCH ×4 (01:03→20:15)
[2019-11-13] MEDS: HYDRALAZINE HCL 100MG TABLET GT SCH ×2 (05:16→14:00)
[2019-11-13] MEDS: SUCRALFATE 1 G/10 ML UDC GT SCH ×3 (05:16→18:08)
[2019-11-13] MEDS: METOCLOPRAMIDE HCL 10MG/2ML VIAL IV SCH ×3 (05:16→18:08)
[2019-11-13] MEDS: BLOOD SUGAR DIAGNOSTIC STRIP TEST SCH ×3 (05:17→18:18)
[2019-11-13] MEDS: ACETAMINOPHEN 650MG/20.3ML UDC GT PRN (05:17)
[2019-11-13] MEDS: INSULIN LISPRO 100 UNITS/ML SUBCUT SCH ×3 (05:17→18:00)
[2019-11-13] MEDS: MEROPENEM 500MG in NORMAL SALINE 50ML IV SCH (08:36)
[2019-11-13] MEDS: AMIODARONE HCL 200 MG TABLET GT SCH (08:36)
[2019-11-13] MEDS: MEMANTINE HCL 5MG TABLET GT SCH ×2 (08:36→21:06)
[2019-11-13] MEDS: LANSOPRAZOLE 30MG DR CAPSULE GT SCH ×2 (08:36→21:06)
[2019-11-13] MEDS: SULFAMETHOXAZOLE/TRIMETHOPRIM 400/80MG TAB PO SCH ×2 (08:36→21:06)
[2019-11-13] MEDS: FERROUS SULFATE 300MG/5ML UDC PO SCH ×3 (08:36→18:08)
[2019-11-13] MEDS: LEVOTHYROXINE SODIUM 25MCG TABLET GT SCH (08:36)
[2019-11-13] MEDS: DOCUSATE SODIUM SUGAR FREE 100MG/10ML UDC GT SCH (08:36)
[2019-11-13] MEDS: AMLODIPINE 5MG TABLET GT SCH ×2 (08:37→21:00)
[2019-11-13] MEDS: INSULIN GLARGINE UD 100 UNITS/ML SYR SUBCUT SCH (10:50)
[2019-11-14] VITALS (11 sets, daily range): BP systolic 97–130; BP diastolic 30–53
[2019-11-14] MEDS: IPRATROPIUM/ALBUTEROL 0.5-3(2.5)MG/3ML NEB HHN SCH ×4 (00:21→21:07)
[2019-11-14] MEDS: ACETYLCYSTEINE 100MG/ML 10% VIAL 4ML INH SCH ×2 (02:15→08:10)
[2019-11-14] MEDS: METOCLOPRAMIDE HCL 10MG/2ML VIAL IV SCH ×5 (05:06→23:52)
[2019-11-14] MEDS: INSULIN LISPRO 100 UNITS/ML SUBCUT SCH ×4 (05:06→17:47)
[2019-11-14] MEDS: SUCRALFATE 1 G/10 ML UDC GT SCH ×5 (05:06→23:52)
[2019-11-14] MEDS: BLOOD SUGAR DIAGNOSTIC STRIP TEST SCH ×5 (05:07→23:52)
[2019-11-14 06:16] LABS: HEMOGLOBIN. 8.6 g/dL (12.0-16.0); MEAN CORPUSCULAR HEMOGLOBIN 26.5 pg (28.0-32.0); MEAN CORPUSCULAR VOLUME 82.8 fL (81.0-99.0); MEAN PLATELET VOLUME 7.4 fl (7.4-10.4); PLATELET 152 x1000/uL (130-400); RED BLOOD CELL COUNT 3.26 mill/uL (4.2-5.4); RED CELL DISTRIBUTION WIDTH 20.4 % (11.6-14.6)
[2019-11-14] MEDS: DOCUSATE SODIUM SUGAR FREE 100MG/10ML UDC GT SCH (08:06)
[2019-11-14] MEDS: FERROUS SULFATE 300MG/5ML UDC PO SCH ×3 (08:06→17:47)
[2019-11-14] MEDS: LANSOPRAZOLE 30MG DR CAPSULE GT SCH ×2 (08:06→20:18)
[2019-11-14] MEDS: AMLODIPINE 5MG TABLET GT SCH ×2 (08:07→20:18)
[2019-11-14] MEDS: MEMANTINE HCL 5MG TABLET GT SCH ×2 (08:07→20:17)
[2019-11-14] MEDS: LEVOTHYROXINE SODIUM 25MCG TABLET GT SCH (08:07)
[2019-11-14] MEDS: AMIODARONE HCL 200 MG TABLET GT SCH ×2 (09:00→14:36)
[2019-11-14] MEDS: MEROPENEM 500MG in NORMAL SALINE 50ML IV SCH ×2 (09:00→14:36)
[2019-11-14] MEDS: SULFAMETHOXAZOLE/TRIMETHOPRIM 400/80MG TAB PO SCH ×3 (09:00→20:18)
[2019-11-14] MEDS: INSULIN GLARGINE UD 100 UNITS/ML SYR SUBCUT SCH (12:19)
[2019-11-14] MEDS ORDERED: AMIKACIN SULFATE 500 MG in SODIUM CHLORIDE 0.9% 100 ML IV SCH (14:00)
[2019-11-14 14:30] LABS: PLATELET ESTIMATE NORMAL
[2019-11-15] VITALS (13 sets, daily range): BP systolic 96–135; BP diastolic 33–56
[2019-11-15] MEDS: IPRATROPIUM/ALBUTEROL 0.5-3(2.5)MG/3ML NEB HHN SCH ×4 (02:15→20:50)
[2019-11-15] MEDS: INSULIN LISPRO 100 UNITS/ML SUBCUT SCH ×5 (06:00→23:21)
[2019-11-15] MEDS: BLOOD SUGAR DIAGNOSTIC STRIP TEST SCH ×4 (06:33→23:21)
[2019-11-15] MEDS: LANSOPRAZOLE 30MG DR CAPSULE GT SCH ×2 (06:39→23:06)
[2019-11-15] MEDS: METOCLOPRAMIDE HCL 10MG/2ML VIAL IV SCH ×4 (06:39→23:06)
[2019-11-15] MEDS: LEVOTHYROXINE SODIUM 25MCG TABLET GT SCH (06:39)
[2019-11-15] MEDS: SUCRALFATE 1 G/10 ML UDC GT SCH ×4 (06:39→23:21)
[2019-11-15] MEDS: MEMANTINE HCL 5MG TABLET GT SCH ×2 (08:15→23:06)
[2019-11-15] MEDS: MEROPENEM 500MG in NORMAL SALINE 50ML IV SCH (08:15)
[2019-11-15] MEDS: FERROUS SULFATE 300MG/5ML UDC PO SCH ×3 (08:15→18:01)
[2019-11-15] MEDS: SULFAMETHOXAZOLE/TRIMETHOPRIM 400/80MG TAB PO SCH ×2 (08:16→23:05)
[2019-11-15] MEDS: AMIODARONE HCL 200 MG TABLET GT SCH (08:16)
[2019-11-15] MEDS: DOCUSATE SODIUM SUGAR FREE 100MG/10ML UDC GT SCH (08:17)
[2019-11-15] MEDS: AMLODIPINE 5MG TABLET GT SCH ×2 (08:26→23:05)
[2019-11-15] MEDS: INSULIN GLARGINE UD 100 UNITS/ML SYR SUBCUT SCH (10:09)
[2019-11-16] VITALS (12 sets, daily range): BP systolic 98–125; BP diastolic 31–48
[2019-11-16] MEDS: IPRATROPIUM/ALBUTEROL 0.5-3(2.5)MG/3ML NEB HHN SCH ×4 (00:41→21:37)
[2019-11-16] MEDS: METOCLOPRAMIDE HCL 10MG/2ML VIAL IV SCH ×3 (05:45→17:06)
[2019-11-16] MEDS: SUCRALFATE 1 G/10 ML UDC GT SCH ×3 (05:45→17:06)
[2019-11-16] MEDS: BLOOD SUGAR DIAGNOSTIC STRIP TEST SCH ×3 (05:46→17:43)
[2019-11-16] MEDS: INSULIN LISPRO 100 UNITS/ML SUBCUT SCH ×3 (05:46→17:42)
[2019-11-16 07:02] LABS: HEMOGLOBIN. 8.2 g/dL (12.0-16.0); MEAN CORPUSCULAR HEMOGLOBIN 26.7 pg (28.0-32.0); MEAN CORPUSCULAR VOLUME 81.9 fL (81.0-99.0); MEAN PLATELET VOLUME 7.3 fl (7.4-10.4); PLATELET 176 x1000/uL (130-400); RED BLOOD CELL COUNT 3.06 mill/uL (4.2-5.4)
[2019-11-16] MEDS: DOCUSATE SODIUM SUGAR FREE 100MG/10ML UDC GT SCH (08:32)
[2019-11-16] MEDS: FERROUS SULFATE 300MG/5ML UDC PO SCH ×3 (08:32→17:06)
[2019-11-16] MEDS: MEROPENEM 500MG in NORMAL SALINE 50ML IV SCH (08:32)
[2019-11-16] MEDS: AMIODARONE HCL 200 MG TABLET GT SCH (08:32)
[2019-11-16] MEDS: SULFAMETHOXAZOLE/TRIMETHOPRIM 400/80MG TAB PO SCH ×2 (08:33→20:35)
[2019-11-16] MEDS: LANSOPRAZOLE 30MG DR CAPSULE GT SCH ×2 (08:33→20:28)
[2019-11-16] MEDS: MEMANTINE HCL 5MG TABLET GT SCH ×2 (08:33→20:28)
[2019-11-16] MEDS: AMLODIPINE 5MG TABLET GT SCH ×2 (08:33→20:28)
[2019-11-16] MEDS: LEVOTHYROXINE SODIUM 25MCG TABLET GT SCH (08:33)
[2019-11-16] MEDS: INSULIN GLARGINE UD 100 UNITS/ML SYR SUBCUT SCH (10:00)
[2019-11-16 10:45] LABS: NUCLEATED RED BLOOD CELLS 1 /100 WBC; PLATELET ESTIMATE NORMAL
[2019-11-16] MEDS: ACETAMINOPHEN 650MG/20.3ML UDC GT PRN (18:40)
[2019-11-17] VITALS (11 sets, daily range): BP systolic 95–119; BP diastolic 27–40
[2019-11-17] MEDS: METOCLOPRAMIDE HCL 10MG/2ML VIAL IV SCH ×4 (00:16→18:33)
[2019-11-17] MEDS: BLOOD SUGAR DIAGNOSTIC STRIP TEST SCH ×4 (00:16→18:37)
[2019-11-17] MEDS: SUCRALFATE 1 G/10 ML UDC GT SCH ×4 (00:17→18:33)
[2019-11-17] MEDS: IPRATROPIUM/ALBUTEROL 0.5-3(2.5)MG/3ML NEB HHN SCH ×3 (01:09→13:43)
[2019-11-17] MEDS: INSULIN LISPRO 100 UNITS/ML SUBCUT SCH ×4 (06:00→18:00)
[2019-11-17 06:28] LABS: BASOPHILS % 0.8 % (0.0-2.0); EOSINOPHILS % 9.2 % (0.0-5.0); HEMATOCRIT. 25.4 % (36.0-48.0); HEMOGLOBIN. 8.2 g/dL (12.0-16.0); MEAN CORPUSCULAR HEMOGLOBIN 26.9 pg (28.0-32.0); MEAN CORPUSCULAR VOLUME 82.8 fL (81.0-99.0); MEAN PLATELET VOLUME 7.3 fl (7.4-10.4); MONOCYTES % 4.6 % (2.0-8.0); NEUTROPHILS % 67.4 % (40.0-76.0); PLATELET 185 x1000/uL (130-400); RED BLOOD CELL COUNT 3.07 mill/uL (4.2-5.4); RED CELL DISTRIBUTION WIDTH 20.1 % (11.6-14.6)
[2019-11-17] MEDS: FERROUS SULFATE 300MG/5ML UDC PO SCH ×3 (08:30→18:33)
[2019-11-17] MEDS: DOCUSATE SODIUM SUGAR FREE 100MG/10ML UDC GT SCH (08:30)
[2019-11-17] MEDS: MEMANTINE HCL 5MG TABLET GT SCH ×2 (08:31→21:44)
[2019-11-17] MEDS: LEVOTHYROXINE SODIUM 25MCG TABLET GT SCH (08:31)
[2019-11-17] MEDS: SULFAMETHOXAZOLE/TRIMETHOPRIM 400/80MG TAB PO SCH ×2 (08:31→21:44)
[2019-11-17] MEDS: AMIODARONE HCL 200 MG TABLET GT SCH (08:31)
[2019-11-17] MEDS: LANSOPRAZOLE 30MG DR CAPSULE GT SCH ×2 (08:31→21:44)
[2019-11-17] MEDS: MEROPENEM 500MG in NORMAL SALINE 50ML IV SCH ×2 (09:00→11:14)
[2019-11-17] MEDS: AMLODIPINE 5MG TABLET GT SCH ×2 (09:00→21:00)
[2019-11-17] MEDS: INSULIN GLARGINE UD 100 UNITS/ML SYR SUBCUT SCH (09:21)
[2019-11-17] MEDS ORDERED: HEPARIN SODIUM 1,000 UNIT/1ML VIAL IV SCH (10:15)
[2019-11-18] VITALS (12 sets, daily range): BP systolic 94–122; BP diastolic 30–73
[2019-11-18] MEDS: BLOOD SUGAR DIAGNOSTIC STRIP TEST SCH ×4 (00:15→17:48)
[2019-11-18] MEDS: METOCLOPRAMIDE HCL 10MG/2ML VIAL IV SCH ×4 (00:15→17:48)
[2019-11-18] MEDS: SUCRALFATE 1 G/10 ML UDC GT SCH ×4 (00:15→17:48)
[2019-11-18] MEDS: IPRATROPIUM/ALBUTEROL 0.5-3(2.5)MG/3ML NEB HHN SCH ×4 (00:40→21:20)
[2019-11-18] MEDS: INSULIN LISPRO 100 UNITS/ML SUBCUT SCH ×4 (06:00→17:49)
[2019-11-18] MEDS: LANSOPRAZOLE 30MG DR CAPSULE GT SCH ×2 (06:34→22:32)
[2019-11-18] MEDS: LEVOTHYROXINE SODIUM 25MCG TABLET GT SCH (06:34)
[2019-11-18] MEDS: FERROUS SULFATE 300MG/5ML UDC PO SCH ×3 (08:26→17:48)
[2019-11-18] MEDS: MEMANTINE HCL 5MG TABLET GT SCH ×2 (08:26→22:32)
[2019-11-18] MEDS: DOCUSATE SODIUM SUGAR FREE 100MG/10ML UDC GT SCH (08:26)
[2019-11-18] MEDS: SULFAMETHOXAZOLE/TRIMETHOPRIM 400/80MG TAB PO SCH ×2 (08:26→22:32)
[2019-11-18] MEDS: AMLODIPINE 5MG TABLET GT SCH (08:27)
[2019-11-18] MEDS: AMIODARONE HCL 200 MG TABLET GT SCH (08:27)
[2019-11-18] MEDS: INSULIN GLARGINE UD 100 UNITS/ML SYR SUBCUT SCH (09:31)
[2019-11-18] MEDS: MIDODRINE HCL 5MG TABLET GT SCH ×2 (18:07→22:32)
[2019-11-19] VITALS (12 sets, daily range): BP systolic 84–130; BP diastolic 25–37
[2019-11-19] MEDS: IPRATROPIUM/ALBUTEROL 0.5-3(2.5)MG/3ML NEB HHN SCH ×4 (00:02→20:46)
[2019-11-19] MEDS: METOCLOPRAMIDE HCL 10MG/2ML VIAL IV SCH ×5 (01:38→23:26)
[2019-11-19] MEDS: SUCRALFATE 1 G/10 ML UDC GT SCH ×5 (01:38→23:26)
[2019-11-19] MEDS: INSULIN LISPRO 100 UNITS/ML SUBCUT SCH ×4 (05:08→18:00)
[2019-11-19] MEDS: BLOOD SUGAR DIAGNOSTIC STRIP TEST SCH ×4 (05:08→18:21)
[2019-11-19] MEDS: MIDODRINE HCL 5MG TABLET GT SCH ×3 (05:08→21:04)
[2019-11-19 05:55] LABS: EOSINOPHILS % 11.3 % (0.0-5.0); HEMATOCRIT. 25.7 % (36.0-48.0); HEMOGLOBIN. 8.6 g/dL (12.0-16.0); LYMPHOCYTES % 21.4 % (20.0-50.0); MEAN CORPUSCULAR HEMOGLOBIN 27.6 pg (28.0-32.0); MEAN CORPUSCULAR VOLUME 82.4 fL (81.0-99.0); MEAN PLATELET VOLUME 6.9 fl (7.4-10.4); MONOCYTES % 5.8 % (2.0-8.0); NEUTROPHILS % 60.5 % (40.0-76.0); PLATELET 189 x1000/uL (130-400); RED BLOOD CELL COUNT 3.12 mill/uL (4.2-5.4); RED CELL DISTRIBUTION WIDTH 19.5 % (11.6-14.6)
[2019-11-19] MEDS: LANSOPRAZOLE 30MG DR CAPSULE GT SCH ×2 (08:17→21:04)
[2019-11-19] MEDS: SULFAMETHOXAZOLE/TRIMETHOPRIM 400/80MG TAB PO SCH ×2 (08:17→21:04)
[2019-11-19] MEDS: MEMANTINE HCL 5MG TABLET GT SCH ×2 (08:17→21:04)
[2019-11-19] MEDS: DOCUSATE SODIUM SUGAR FREE 100MG/10ML UDC GT SCH (08:17)
[2019-11-19] MEDS: LEVOTHYROXINE SODIUM 25MCG TABLET GT SCH (08:17)
[2019-11-19] MEDS: FERROUS SULFATE 300MG/5ML UDC PO SCH ×3 (08:17→17:56)
[2019-11-19] MEDS: AMIODARONE HCL 200 MG TABLET GT SCH (09:00)
[2019-11-19] MEDS ORDERED: HEPARIN SODIUM 1,000 UNIT/1ML VIAL IV NR (09:30)
[2019-11-19] MEDS: INSULIN GLARGINE UD 100 UNITS/ML SYR SUBCUT SCH (11:53)
[2019-11-19] MEDS ORDERED: AMIKACIN SULFATE 400 MG in SODIUM CHLORIDE 0.9% 100 ML IV SCH (13:00)
[2019-11-19] MEDS: ACETAMINOPHEN 650MG/20.3ML UDC GT PRN ×3 (16:10→17:46)
[2019-11-19] MEDS: SODIUM HYPOCHLORITE 0.125% 473ML SOLUTION TOP SCH (23:12)
[2019-11-20] VITALS (12 sets, daily range): BP systolic 92–138; BP diastolic 25–63
[2019-11-20] MEDS ORDERED: MEROPENEM 500 MG in SODIUM CHLORIDE 0.9% 50 ML IV SCH ×2
[2019-11-20] MEDS: IPRATROPIUM/ALBUTEROL 0.5-3(2.5)MG/3ML NEB HHN SCH ×4 (00:28→20:41)
[2019-11-20] MEDS: SUCRALFATE 1 G/10 ML UDC GT SCH ×3 (05:20→17:13)
[2019-11-20] MEDS: MIDODRINE HCL 5MG TABLET GT SCH ×2 (05:20→13:33)
[2019-11-20] MEDS: METOCLOPRAMIDE HCL 10MG/2ML VIAL IV SCH ×3 (05:20→17:13)
[2019-11-20] MEDS: FERROUS SULFATE 300MG/5ML UDC PO SCH ×3 (08:14→17:13)
[2019-11-20] MEDS: LANSOPRAZOLE 30MG DR CAPSULE GT SCH (08:14)
[2019-11-20] MEDS: AMIODARONE HCL 200 MG TABLET GT SCH (09:00)
[2019-11-20] MEDS: SULFAMETHOXAZOLE/TRIMETHOPRIM 400/80MG TAB PO SCH (09:08)
[2019-11-20] MEDS: DOCUSATE SODIUM SUGAR FREE 100MG/10ML UDC GT SCH (09:08)
[2019-11-20] MEDS: SODIUM HYPOCHLORITE 0.125% 473ML SOLUTION TOP SCH ×2 (09:11→20:41)
[2019-11-20] MEDS: INSULIN GLARGINE UD 100 UNITS/ML SYR SUBCUT SCH (10:00)
[2019-11-20] MEDS: ACETAMINOPHEN 650MG/20.3ML UDC GT PRN (11:29)
[2019-11-20] MEDS ORDERED: SULFAMETHOXAZOLE/TRIMETHOPRIM 800/160MG TABLET PO SCH (13:30)
[2019-11-20] MEDS ORDERED: ACETAMINOPHEN 650MG/20.3ML UDC PO PRN (15:45)
== END 2019-11-20 21:50 | DRG 853 ==
LOC: ER 18:18 → 6WST 23:43 → ENRESERV 10-22 13:26 → MICUNO 10-29 12:04 → CVICU 11-01 11:14 → 5EST 11-07 01:50
PROVIDERS: ADMIT Internal Medicine; ATTEND Internal Medicine
PROC: 0D20XUZ Change Feeding Device in Upper Intestinal Tract, External Approach (ICD-10-PCS; 2019-10-21)
PROC: 0DB38ZX Excision of Lower Esophagus, Via Natural or Artificial Opening Endoscopic, Diagnostic (ICD-10-PCS; 2019-10-21)
PROC: 0DB68ZX Excision of Stomach, Via Natural or Artificial Opening Endoscopic, Diagnostic (ICD-10-PCS; 2019-10-21)
PROC: 0DB98ZX Excision of Duodenum, Via Natural or Artificial Opening Endoscopic, Diagnostic (ICD-10-PCS; 2019-10-21)
PROC: 30233N1 Transfusion of Nonautologous Red Blood Cells into Peripheral Vein, Percutaneous Approach (ICD-10-PCS; 2019-10-22)
PROC: 5A1D70Z Performance of Urinary Filtration, Intermittent, Less than 6 Hours Per Day (ICD-10-PCS; 2019-10-23)
PROC: 0D20XUZ Change Feeding Device in Upper Intestinal Tract, External Approach (ICD-10-PCS; 2019-10-23)
PROC: 0QB10ZZ Excision of Sacrum, Open Approach (ICD-10-PCS; principal; 2019-10-26)
PROC: 5A1D70Z Performance of Urinary Filtration, Intermittent, Less than 6 Hours Per Day (ICD-10-PCS; 2019-10-26)
PROC: 5A1D70Z Performance of Urinary Filtration, Intermittent, Less than 6 Hours Per Day (ICD-10-PCS; 2019-10-28)
PROC: 5A1955Z Respiratory Ventilation, Greater than 96 Consecutive Hours (ICD-10-PCS; 2019-10-29)
PROC: 02HV33Z Insertion of Infusion Device into Superior Vena Cava, Percutaneous Approach (ICD-10-PCS; 2019-10-29)
PROC: B548ZZA Ultrasonography of Superior Vena Cava, Guidance (ICD-10-PCS; 2019-10-29)
PROC: 0BH17EZ Insertion of Endotracheal Airway into Trachea, Via Natural or Artificial Opening (ICD-10-PCS; 2019-10-29)
PROC: 5A1D70Z Performance of Urinary Filtration, Intermittent, Less than 6 Hours Per Day (ICD-10-PCS; 2019-10-29)
PROC: 5A1D70Z Performance of Urinary Filtration, Intermittent, Less than 6 Hours Per Day (ICD-10-PCS; 2019-10-31)
PROC: B54MZZA Ultrasonography of Right Upper Extremity Veins, Guidance (ICD-10-PCS; 2019-11-02)
PROC: 05HY33Z Insertion of Infusion Device into Upper Vein, Percutaneous Approach (ICD-10-PCS; 2019-11-02)
PROC: 5A1D70Z Performance of Urinary Filtration, Intermittent, Less than 6 Hours Per Day (ICD-10-PCS; 2019-11-03)
PROC: 5A1D70Z Performance of Urinary Filtration, Intermittent, Less than 6 Hours Per Day (ICD-10-PCS; 2019-11-05)
PROC: 5A1D70Z Performance of Urinary Filtration, Intermittent, Less than 6 Hours Per Day (ICD-10-PCS; 2019-11-07)
PROC: 5A1D70Z Performance of Urinary Filtration, Intermittent, Less than 6 Hours Per Day (ICD-10-PCS; 2019-11-10)
PROC: 5A1D70Z Performance of Urinary Filtration, Intermittent, Less than 6 Hours Per Day (ICD-10-PCS; 2019-11-12)
PROC: 5A1D70Z Performance of Urinary Filtration, Intermittent, Less than 6 Hours Per Day (ICD-10-PCS; 2019-11-14)
PROC: 5A1D70Z Performance of Urinary Filtration, Intermittent, Less than 6 Hours Per Day (ICD-10-PCS; 2019-11-15)
PROC: 5A1D70Z Performance of Urinary Filtration, Intermittent, Less than 6 Hours Per Day (ICD-10-PCS; 2019-11-17)
PROC: 5A1D70Z Performance of Urinary Filtration, Intermittent, Less than 6 Hours Per Day (ICD-10-PCS; 2019-11-19)
DX: A41.59 Other Gram-negative sepsis (principal); L89.154 Pressure ulcer of sacral region, stage 4; J96.01 Acute respiratory failure with hypoxia; E43 Unspecified severe protein-calorie malnutrition; G93.41 Metabolic encephalopathy; N18.6 End stage renal disease; J69.0 Pneumonitis due to inhalation of food and vomit; J15.6 Pneumonia due to other Gram-negative bacteria; R65.21 Severe sepsis with septic shock; K22.10 Ulcer of esophagus without bleeding; E87.0 Hyperosmolality and hypernatremia; I13.2 Hypertensive heart and chronic kidney disease with heart failure and with stage 5 chronic kidney disease, or end stage renal disease; I24.8 Other forms of acute ischemic heart disease; K94.23 Gastrostomy malfunction; N13.6 Pyonephrosis; D68.59 Other primary thrombophilia; R47.01 Aphasia; D64.9 Anemia, unspecified; E11.22 Type 2 diabetes mellitus with diabetic chronic kidney disease; E66.9 Obesity, unspecified; E87.6 Hypokalemia; E87.8 Other disorders of electrolyte and fluid balance, not elsewhere classified; F03.90 Unspecified dementia, unspecified severity, without behavioral disturbance, psychotic disturbance, mood disturbance, and anxiety; L89.159 Pressure ulcer of sacral region, unspecified stage; E11.51 Type 2 diabetes mellitus with diabetic peripheral angiopathy without gangrene; D50.9 Iron deficiency anemia, unspecified; E83.39 Other disorders of phosphorus metabolism; I27.20 Pulmonary hypertension, unspecified; K21.9 Gastro-esophageal reflux disease without esophagitis; I50.9 Heart failure, unspecified; R47.02 Dysphasia; I48.0 Paroxysmal atrial fibrillation; M19.90 Unspecified osteoarthritis, unspecified site; L89.519 Pressure ulcer of right ankle, unspecified stage; L89.899 Pressure ulcer of other site, unspecified stage; L89.010 Pressure ulcer of right elbow, unstageable; L89.629 Pressure ulcer of left heel, unspecified stage; Z87.19 Personal history of other diseases of the digestive system; Z99.2 Dependence on renal dialysis; Z95.828 Presence of other vascular implants and grafts; Z86.711 Personal history of pulmonary embolism; Z74.01 Bed confinement status; Z82.49 Family history of ischemic heart disease and other diseases of the circulatory system; Z83.3 Family history of diabetes mellitus; Z86.73 Personal history of transient ischemic attack (TIA), and cerebral infarction without residual deficits; Z68.26 Body mass index [BMI] 26.0-26.9, adult; Z79.82 Long term (current) use of aspirin; Z79.899 Other long term (current) drug therapy; Z03.818 Encounter for observation for suspected exposure to other biological agents ruled out
CPT/HCPCS: 36415; 36600; 71045; 76937; 80048; 80053; 80150; 80202; 81003; 82040; 82270; 82375; 82607; 82728; 82746; 82805; 82962; 83036; 83540; 83550; 83735; 83880; 84100; 84134; 84145; 84484; 85014; 85018; 85025; 86850; 86900; 86920; 87070; 87075; 87077; 87106; 87186; 88305; 88312; 88313; 93005; 93970; 94003; 94640; 97162; 99291; C1725; C9113; J0278; J0692; J1644; J1815; J1940; J2185; J2248; J2250; J2543; J2765; J3010; J3370; J3490; J7050; J7060; J7608; P9016; U0003-CS

== ENCOUNTER 2019-12-11 13:22 | Inpatient (IN) | payer MEDICARE, MEDICAID ==
[~2019-12-11] VITALS: Ht 157.5 cm; Wt 80.1 kg
[~2019-12-11 13:22] MED LIST changes: +AMIO100T4 GT; +AMLO5TAB88 GT; -ASPI-1497 PO; -BENA20TA10 PO; +HYDR100T26 GT; +INSLIS SUBCUT; +INSU100I28 SQ; +LANTUSUD SUBCUT; +LEVO25TA7 GT; +MEMA5TAB42 GT; +SUCR1TAB GT
[2019-12-11 14:54] LABS: CHLORIDE 96 mEq/L (98-107)
[2019-12-11 17:06] LABS: PROTHROMBIN TIME 10.9 sec (9.6-11.0)
[2019-12-11 17:12] LABS: MEAN CORPUSCULAR HEMOGLOBIN 24.2 pg (28.0-32.0); MEAN CORPUSCULAR VOLUME 77.7 fL (81.0-99.0); MEAN PLATELET VOLUME 6.9 fl (7.4-10.4); PLATELET 279 x1000/uL (130-400); RED BLOOD CELL COUNT 2.73 mill/uL (4.2-5.4); RED CELL DISTRIBUTION WIDTH 18.7 % (11.6-14.6)
[2019-12-11 17:22] LABS: HEMOGLOBIN. 6.6 g/dL (12.0-16.0)
[2019-12-11 17:23] LABS: HEMATOCRIT. 21.2 % (36.0-48.0)
[2019-12-11 17:45] LABS: NUCLEATED RED BLOOD CELLS 4 /100 WBC; PLATELET ESTIMATE NORMAL
[2019-12-11 22:39] LABS: HEMATOCRIT 24.9 % (36.0-48.0); HEMOGLOBIN 7.7 g/dL (12.0-16.0)
[2019-12-12 01:00] VITALS: BP 150/63
[2019-12-12] MEDS ORDERED: ACETAMINOPHEN 650MG/20.3ML UDC PO PRN (01:30)
[2019-12-12] MEDS ORDERED: DEXTROSE 50% WATER 50ML SYRINGE IV PRN (05:30)
[2019-12-12] MEDS: BLOOD SUGAR DIAGNOSTIC STRIP TEST SCH ×4 (07:50→21:00)
[2019-12-12] MEDS: INSULIN LISPRO 100 UNITS/ML SUBCUT SCH ×4 (07:50→21:00)
[2019-12-12 08:00] VITALS: BP 174/98
[2019-12-12] MEDS: LEVOTHYROXINE SODIUM 25MCG TABLET PO SCH (09:10)
[2019-12-12] MEDS: PANTOPRAZOLE SODIUM 40 MG/VIAL IV SCH (09:10)
[2019-12-12] MEDS: ASCORBIC ACID 500 MG TABLET PO SCH (09:10)
[2019-12-12] MEDS: SUCRALFATE 1 G/10 ML UDC GT SCH ×4 (09:10→21:47)
[2019-12-12] MEDS ORDERED: CLONIDINE 0.1MG TABLET PO SCH (10:45)
[2019-12-12] MEDS: INSULIN GLARGINE UD 100 UNITS/ML SYR SUBCUT SCH (10:54)
[2019-12-12 12:00] VITALS: BP 152/52
[2019-12-12 16:00] VITALS: BP 145/68
[2019-12-12] MEDS ORDERED: IPRATROPIUM/ALBUTEROL 0.5-3(2.5)MG/3ML NEB HHN PRN (17:45)
[2019-12-12 20:31] VITALS: BP 160/53
[2019-12-13 00:34] VITALS: BP 153/61
[2019-12-13 04:00] VITALS: BP 148/55
[2019-12-13] MEDS: SUCRALFATE 1 G/10 ML UDC GT SCH ×4 (06:30→21:33)
[2019-12-13] MEDS: LEVOTHYROXINE SODIUM 25MCG TABLET PO SCH (06:30)
[2019-12-13] MEDS: BLOOD SUGAR DIAGNOSTIC STRIP TEST SCH ×4 (06:31→21:28)
[2019-12-13 06:32] LABS: HEMATOCRIT. 25.9 % (36.0-48.0); MEAN CORPUSCULAR HEMOGLOBIN 24.6 pg (28.0-32.0); MEAN CORPUSCULAR VOLUME 79.8 fL (81.0-99.0); MEAN PLATELET VOLUME 6.8 fl (7.4-10.4); PLATELET 288 x1000/uL (130-400); RED BLOOD CELL COUNT 3.25 mill/uL (4.2-5.4); RED CELL DISTRIBUTION WIDTH 18.9 % (11.6-14.6)
[2019-12-13] MEDS: INSULIN LISPRO 100 UNITS/ML SUBCUT SCH ×4 (07:40→21:00)
[2019-12-13 08:00] VITALS: BP 115/77
[2019-12-13] MEDS: PANTOPRAZOLE SODIUM 40 MG/VIAL IV SCH (09:11)
[2019-12-13] MEDS: ASCORBIC ACID 500 MG TABLET PO SCH (09:11)
[2019-12-13] MEDS: SODIUM HYPOCHLORITE 0.125% 473ML SOLUTION TOP SCH (09:12)
[2019-12-13] MEDS: INSULIN GLARGINE UD 100 UNITS/ML SYR SUBCUT SCH (10:50)
[2019-12-13 12:00] VITALS: BP 146/50
[2019-12-13 12:47] LABS: NUCLEATED RED BLOOD CELLS 1 /100 WBC; PLATELET ESTIMATE NORMAL
[2019-12-13] MEDS ORDERED: POTASSIUM CHLORIDE 20MEQ/PACKET GT SCH (13:45)
[2019-12-13 16:00] VITALS: BP 140/78
[2019-12-13 20:23] VITALS: BP 118/64
[2019-12-14 00:38] VITALS: BP 146/60
[2019-12-14 04:00] VITALS: BP 133/52
[2019-12-14] MEDS: SUCRALFATE 1 G/10 ML UDC GT SCH ×4 (06:47→20:25)
[2019-12-14] MEDS: LEVOTHYROXINE SODIUM 25MCG TABLET PO SCH (06:47)
[2019-12-14] MEDS: BLOOD SUGAR DIAGNOSTIC STRIP TEST SCH ×4 (06:47→21:30)
[2019-12-14] MEDS: INSULIN LISPRO 100 UNITS/ML SUBCUT SCH ×4 (07:50→21:00)
[2019-12-14 08:07] VITALS: BP 135/66
[2019-12-14] MEDS: PANTOPRAZOLE SODIUM 40 MG/VIAL IV SCH (08:59)
[2019-12-14] MEDS: ASCORBIC ACID 500 MG TABLET PO SCH (09:00)
[2019-12-14] MEDS: SODIUM HYPOCHLORITE 0.125% 473ML SOLUTION TOP SCH (09:00)
[2019-12-14] MEDS: INSULIN GLARGINE UD 100 UNITS/ML SYR SUBCUT SCH (10:40)
[2019-12-14 12:06] VITALS: BP 153/67
[2019-12-14 16:05] VITALS: BP 152/50
[2019-12-14 20:01] VITALS: BP 147/69
[2019-12-15 00:14] VITALS: BP 121/48
[2019-12-15 04:42] VITALS: BP 143/85
[2019-12-15] MEDS: LEVOTHYROXINE SODIUM 25MCG TABLET PO SCH (06:23)
[2019-12-15] MEDS: SUCRALFATE 1 G/10 ML UDC GT SCH ×2 (06:23→13:06)
[2019-12-15] MEDS: BLOOD SUGAR DIAGNOSTIC STRIP TEST SCH ×2 (06:23→13:06)
[2019-12-15] MEDS: INSULIN LISPRO 100 UNITS/ML SUBCUT SCH ×2 (07:50→12:50)
[2019-12-15 08:32] VITALS: BP 129/77
[2019-12-15] MEDS: SODIUM HYPOCHLORITE 0.125% 473ML SOLUTION TOP SCH (09:30)
[2019-12-15] MEDS: PANTOPRAZOLE SODIUM 40 MG/VIAL IV SCH (09:30)
[2019-12-15] MEDS: ASCORBIC ACID 500 MG TABLET PO SCH (09:30)
[2019-12-15] MEDS: INSULIN GLARGINE UD 100 UNITS/ML SYR SUBCUT SCH (11:25)
[2019-12-15 12:01] VITALS: BP 139/51
[2019-12-15 12:19] VITALS: BP 139/51
== END 2019-12-15 14:05 | DRG 380 ==
LOC: ER 13:28 → EDBEDREQTM 17:32 → 6WST 21:37 → EDBEDREQ 21:39 → EDBEDREQTM 21:39 → ENRESERV 21:57
PROVIDERS: ADMIT Internal Medicine; ATTEND Internal Medicine
PROC: 30233N1 Transfusion of Nonautologous Red Blood Cells into Peripheral Vein, Percutaneous Approach (ICD-10-PCS; principal; 2019-12-11)
PROC: 02HV33Z Insertion of Infusion Device into Superior Vena Cava, Percutaneous Approach (ICD-10-PCS; 2019-12-11)
PROC: B548ZZA Ultrasonography of Superior Vena Cava, Guidance (ICD-10-PCS; 2019-12-11)
DX: K22.10 Ulcer of esophagus without bleeding (principal); L89.894 Pressure ulcer of other site, stage 4; N18.6 End stage renal disease; L89.154 Pressure ulcer of sacral region, stage 4; G93.40 Encephalopathy, unspecified; I13.2 Hypertensive heart and chronic kidney disease with heart failure and with stage 5 chronic kidney disease, or end stage renal disease; D63.8 Anemia in other chronic diseases classified elsewhere; E87.6 Hypokalemia; E03.9 Hypothyroidism, unspecified; E11.22 Type 2 diabetes mellitus with diabetic chronic kidney disease; I48.0 Paroxysmal atrial fibrillation; R62.7 Adult failure to thrive; I50.9 Heart failure, unspecified; I27.20 Pulmonary hypertension, unspecified; L89.629 Pressure ulcer of left heel, unspecified stage; E66.01 Morbid (severe) obesity due to excess calories; F03.90 Unspecified dementia, unspecified severity, without behavioral disturbance, psychotic disturbance, mood disturbance, and anxiety; L89.010 Pressure ulcer of right elbow, unstageable; M19.90 Unspecified osteoarthritis, unspecified site; E11.51 Type 2 diabetes mellitus with diabetic peripheral angiopathy without gangrene; Z86.73 Personal history of transient ischemic attack (TIA), and cerebral infarction without residual deficits; Z87.19 Personal history of other diseases of the digestive system; Z99.2 Dependence on renal dialysis; Z93.1 Gastrostomy status; Z95.828 Presence of other vascular implants and grafts; Z86.711 Personal history of pulmonary embolism; Z79.4 Long term (current) use of insulin; Z79.1 Long term (current) use of non-steroidal anti-inflammatories (NSAID); Z79.899 Other long term (current) drug therapy; Z68.32 Body mass index [BMI] 32.0-32.9, adult; D63.1 Anemia in chronic kidney disease; D50.0 Iron deficiency anemia secondary to blood loss (chronic)
CPT/HCPCS: 36415; 71045; 80048; 80053; 82962; 83036; 84484; 85014; 85018; 85025; 86850; 86900; 86920; 93005; 94640; 99285; C9113; J1815; P9016

== ENCOUNTER 2020-01-05 16:35 | Inpatient (IN) | payer MEDICARE, MEDICAID ==
[~2020-01-05] VITALS: Ht 157.5 cm; Wt 70.8 kg
[2020-01-05] MEDS ORDERED: VANCOMYCIN 1 G PREMIX 200 ML IV SCH (19:15)
[2020-01-05 19:57] LABS: BASOPHILS % 0.8 % (0.0-2.0); EOSINOPHILS % 3.2 % (0.0-5.0); MEAN CORPUSCULAR HEMOGLOBIN 22.7 pg (28.0-32.0); MEAN CORPUSCULAR VOLUME 77.1 fL (81.0-99.0); MEAN PLATELET VOLUME 7.5 fl (7.4-10.4); MONOCYTES % 5.2 % (2.0-8.0); NEUTROPHILS % 74.8 % (40.0-76.0); PLATELET 323 x1000/uL (130-400); RED CELL DISTRIBUTION WIDTH 19.5 % (11.6-14.6)
[2020-01-05 20:01] LABS: HEMATOCRIT. 20.8 % (36.0-48.0); HEMOGLOBIN. 6.2 g/dL (12.0-16.0)
[2020-01-05 20:02] LABS: CHLORIDE 98 mEq/L (98-107)
[2020-01-05 20:06] LABS: INR 1.1; PROTHROMBIN TIME 11.2 sec (9.6-11.0)
[2020-01-05 20:09] LABS: CLARITY URINE TURBID (CLEAR); COLOR URINE DARK YELLOW (YELLOW); KETONES URINE TRACE (NEGATIVE); LEUKOCYTE ESTERASE URINE 3+ (NEGATIVE); NITRITE URINE NEGATIVE (NEGATIVE); OCCULT BLOOD URINE 3+ (NEGATIVE); PROTEIN URINE 3+ (NEGATIVE); SPECIFIC GRAVITY URINE 1.024 (1.005-1.030)
[2020-01-06] VITALS (11 sets, daily range): BP systolic 106–141; BP diastolic 32–54
[2020-01-06] MEDS ORDERED: CLONIDINE 0.1MG TABLET PO PRN (00:30)
[2020-01-06] MEDS ORDERED: DIPHENHYDRAMINE 50MG/ML VIAL IV PRN (00:30)
[2020-01-06] MEDS ORDERED: VANCOMYCIN 1 G PREMIX 200 ML IV SCH (00:30)
[2020-01-06] MEDS ORDERED: IPRATROPIUM/ALBUTEROL 0.5-3(2.5)MG/3ML NEB NEB PRN (00:30)
[2020-01-06] MEDS ORDERED: DEXTROSE 50% WATER 50ML SYRINGE IV PRN (00:30)
[2020-01-06] MEDS ORDERED: PIPERACILLIN/TAZ 3.375G PREMIX 50 ML IV SCH ×2 (00:30→01:15)
[2020-01-06] MEDS ORDERED: POTASSIUM CHLORIDE 20MEQ/PACKET GT SCH (01:45)
[2020-01-06] MEDS: ACETAMINOPHEN 650MG/20.3ML UDC GT PRN (03:52)
[2020-01-06] MEDS: SODIUM CHLORIDE 0.9% INJ 3ML FLUSH IVF SCH ×3 (06:02→21:22)
[2020-01-06] MEDS: INSULIN LISPRO 100 UNITS/ML SUBCUT SCH ×4 (06:21→20:42)
[2020-01-06] MEDS: BLOOD SUGAR DIAGNOSTIC STRIP TEST SCH ×4 (06:21→20:42)
[2020-01-06 10:25] LABS: BASOPHILS % 0.8 % (0.0-2.0); EOSINOPHILS % 7.3 % (0.0-5.0); HEMATOCRIT. 24.8 % (36.0-48.0); HEMOGLOBIN. 7.4 g/dL (12.0-16.0); LYMPHOCYTES % 16.6 % (20.0-50.0); MEAN CORPUSCULAR VOLUME 77.1 fL (81.0-99.0); MEAN PLATELET VOLUME 6.9 fl (7.4-10.4); MONOCYTES % 6.8 % (2.0-8.0); NEUTROPHILS % 68.5 % (40.0-76.0); PLATELET 297 x1000/uL (130-400); RED BLOOD CELL COUNT 3.21 mill/uL (4.2-5.4); RED CELL DISTRIBUTION WIDTH 18.7 % (11.6-14.6)
[2020-01-06] MEDS: PIPERACILLIN/TAZOBACTAM 2.25 G in DEXTROSE 5% WATER 50 ML IV SCH ×2 (10:47→18:53)
[2020-01-06] MEDS ORDERED: VANCOMYCIN 750 MG PREMIX 150 ML IV SCH (20:00)
[2020-01-06] MEDS ORDERED: HEPARIN SODIUM 1,000 UNIT/1ML VIAL IV NR (20:30)
[2020-01-07 00:22] VITALS: BP 137/58
[2020-01-07] MEDS: PIPERACILLIN/TAZOBACTAM 2.25 G in DEXTROSE 5% WATER 50 ML IV SCH ×3 (02:29→18:32)
[2020-01-07 04:23] VITALS: BP 136/47
[2020-01-07] MEDS: SODIUM CHLORIDE 0.9% INJ 3ML FLUSH IVF SCH ×3 (05:30→21:00)
[2020-01-07] MEDS: BLOOD SUGAR DIAGNOSTIC STRIP TEST SCH ×4 (06:12→20:27)
[2020-01-07] MEDS: INSULIN LISPRO 100 UNITS/ML SUBCUT SCH ×4 (06:12→21:00)
[2020-01-07 07:19] LABS: BASOPHILS % 0.6 % (0.0-2.0); EOSINOPHILS % 7.6 % (0.0-5.0); HEMATOCRIT. 25.2 % (36.0-48.0); HEMOGLOBIN. 7.4 g/dL (12.0-16.0); LYMPHOCYTES % 13.4 % (20.0-50.0); MEAN CORPUSCULAR VOLUME 78.1 fL (81.0-99.0); MEAN PLATELET VOLUME 7.2 fl (7.4-10.4); MONOCYTES % 6.5 % (2.0-8.0); NEUTROPHILS % 71.9 % (40.0-76.0); PLATELET 310 x1000/uL (130-400); RED BLOOD CELL COUNT 3.22 mill/uL (4.2-5.4); RED CELL DISTRIBUTION WIDTH 18.8 % (11.6-14.6)
[2020-01-07 08:00] VITALS: BP 140/44
[2020-01-07 12:00] VITALS: BP 133/49
[2020-01-07 16:00] VITALS: BP 130/57
[2020-01-07 20:00] VITALS: BP 129/45
[2020-01-07] MEDS: ACETAMINOPHEN 650MG/20.3ML UDC GT PRN (20:59)
[2020-01-08] VITALS: BP 125/36
[2020-01-08] MEDS: PIPERACILLIN/TAZOBACTAM 2.25 G in DEXTROSE 5% WATER 50 ML IV SCH ×2 (02:11→12:02)
[2020-01-08 04:00] VITALS: BP 108/39
[2020-01-08] MEDS: BLOOD SUGAR DIAGNOSTIC STRIP TEST SCH ×4 (05:44→21:20)
[2020-01-08] MEDS: SODIUM CHLORIDE 0.9% INJ 3ML FLUSH IVF SCH ×3 (05:57→21:26)
[2020-01-08] MEDS: INSULIN LISPRO 100 UNITS/ML SUBCUT SCH ×4 (06:48→21:00)
[2020-01-08 08:00] VITALS: BP 133/40
[2020-01-08 12:00] VITALS: BP 177/69
[2020-01-08 13:23] LABS: BASOPHILS % 0.8 % (0.0-2.0); EOSINOPHILS % 7.5 % (0.0-5.0); HEMATOCRIT. 24.7 % (36.0-48.0); HEMOGLOBIN. 7.3 g/dL (12.0-16.0); LYMPHOCYTES % 15.9 % (20.0-50.0); MEAN CORPUSCULAR HEMOGLOBIN 23.1 pg (28.0-32.0); MEAN CORPUSCULAR VOLUME 78.1 fL (81.0-99.0); MEAN PLATELET VOLUME 6.4 fl (7.4-10.4); MONOCYTES % 6.8 % (2.0-8.0); PLATELET 288 x1000/uL (130-400); RED BLOOD CELL COUNT 3.17 mill/uL (4.2-5.4)
[2020-01-08] MEDS: MEROPENEM 1,000 MG in SODIUM CHLORIDE 0.9% 100 ML IV SCH (14:03)
[2020-01-08 16:00] VITALS: BP 172/70
[2020-01-08 20:00] VITALS: BP 123/41
[2020-01-08] MEDS ORDERED: VANCOMYCIN 750 MG PREMIX 150 ML IV SCH (20:00)
[2020-01-08] MEDS: EPOETIN ALFA 10000UNITS/ML VIAL SUBCUT SCH (21:26)
[2020-01-09] VITALS: BP 123/49
[2020-01-09 04:00] VITALS: BP 119/51
[2020-01-09] MEDS: INSULIN LISPRO 100 UNITS/ML SUBCUT SCH ×4 (06:47→21:00)
[2020-01-09] MEDS: SODIUM CHLORIDE 0.9% INJ 3ML FLUSH IVF SCH ×3 (06:47→21:08)
[2020-01-09] MEDS: BLOOD SUGAR DIAGNOSTIC STRIP TEST SCH ×4 (06:47→21:07)
[2020-01-09 08:00] VITALS: BP 130/58
[2020-01-09 12:00] VITALS: BP 128/73
[2020-01-09] MEDS: MEROPENEM 1,000 MG in SODIUM CHLORIDE 0.9% 100 ML IV SCH (13:27)
[2020-01-09 16:00] VITALS: BP 143/69
[2020-01-09 20:00] VITALS: BP 145/70
[2020-01-10] VITALS (8 sets, daily range): BP systolic 84–152; BP diastolic 36–89
[2020-01-10] MEDS: BLOOD SUGAR DIAGNOSTIC STRIP TEST SCH ×4 (06:11→21:00)
[2020-01-10] MEDS: INSULIN LISPRO 100 UNITS/ML SUBCUT SCH ×4 (06:11→20:59)
[2020-01-10] MEDS: SODIUM CHLORIDE 0.9% INJ 3ML FLUSH IVF SCH ×3 (06:11→20:59)
[2020-01-10 06:53] LABS: EOSINOPHILS % 3.8 % (0.0-5.0); HEMATOCRIT. 26.5 % (36.0-48.0); HEMOGLOBIN. 7.7 g/dL (12.0-16.0); LYMPHOCYTES % 16.4 % (20.0-50.0); MEAN CORPUSCULAR HEMOGLOBIN 22.8 pg (28.0-32.0); MEAN CORPUSCULAR VOLUME 78.7 fL (81.0-99.0); MEAN PLATELET VOLUME 7.6 fl (7.4-10.4); NEUTROPHILS % 74.8 % (40.0-76.0); PLATELET 274 x1000/uL (130-400); RED BLOOD CELL COUNT 3.37 mill/uL (4.2-5.4); RED CELL DISTRIBUTION WIDTH 19.2 % (11.6-14.6)
[2020-01-10] MEDS: ACETAMINOPHEN 650MG/20.3ML UDC GT PRN ×3 (08:37→20:51)
[2020-01-10] MEDS: MEROPENEM 1,000 MG in SODIUM CHLORIDE 0.9% 100 ML IV SCH (13:00)
[2020-01-10 13:38] LABS: PLATELET ESTIMATE NORMAL
[2020-01-10] MEDS ORDERED: HEPARIN SODIUM 1,000 UNIT/1ML VIAL IV NR (22:08)
[2020-01-11] VITALS: BP 140/62
[2020-01-11] MEDS: ACETAMINOPHEN 650MG/20.3ML UDC GT PRN (02:26)
[2020-01-11 04:00] VITALS: BP 115/46
[2020-01-11] MEDS: SODIUM CHLORIDE 0.9% INJ 3ML FLUSH IVF SCH ×3 (06:28→22:26)
[2020-01-11] MEDS: BLOOD SUGAR DIAGNOSTIC STRIP TEST SCH ×4 (06:29→21:00)
[2020-01-11] MEDS: INSULIN LISPRO 100 UNITS/ML SUBCUT SCH ×4 (06:29→21:00)
[2020-01-11 08:00] VITALS: BP 110/50
[2020-01-11 10:47] LABS: HEMATOCRIT. 26.4 % (36.0-48.0); HEMOGLOBIN. 7.7 g/dL (12.0-16.0); MEAN CORPUSCULAR VOLUME 79.1 fL (81.0-99.0); MEAN PLATELET VOLUME 7.3 fl (7.4-10.4); PLATELET 225 x1000/uL (130-400); RED BLOOD CELL COUNT 3.33 mill/uL (4.2-5.4); RED CELL DISTRIBUTION WIDTH 19.6 % (11.6-14.6)
[2020-01-11] MEDS ORDERED: POTASSIUM CHLORIDE 20MEQ/PACKET PO NR (11:45)
[2020-01-11 12:00] VITALS: BP 140/96
[2020-01-11 12:06] LABS: PLATELET ESTIMATE NORMAL
[2020-01-11] MEDS: MEROPENEM 1,000 MG in SODIUM CHLORIDE 0.9% 100 ML IV SCH (14:36)
[2020-01-11 16:00] VITALS: BP 138/59
[2020-01-11] MEDS ORDERED: VANCOMYCIN 750 MG PREMIX 150 ML IV NR (16:00)
[2020-01-11 20:00] VITALS: BP 138/39
[2020-01-11] MEDS: EPOETIN ALFA 10000UNITS/ML VIAL SUBCUT SCH (22:27)
[2020-01-12] VITALS (7 sets, daily range): BP systolic 100–152; BP diastolic 42–80
[2020-01-12] MEDS: SODIUM CHLORIDE 0.9% INJ 3ML FLUSH IVF SCH ×3 (06:13→21:25)
[2020-01-12] MEDS: BLOOD SUGAR DIAGNOSTIC STRIP TEST SCH ×4 (06:13→21:20)
[2020-01-12] MEDS: INSULIN LISPRO 100 UNITS/ML SUBCUT SCH ×4 (06:15→21:00)
[2020-01-12] MEDS: MEROPENEM 1,000 MG in SODIUM CHLORIDE 0.9% 100 ML IV SCH (12:49)
[2020-01-12] MEDS: ACETAMINOPHEN 650MG/20.3ML UDC GT PRN (13:30)
[2020-01-12 15:11] LABS: BASOPHILS % 0.4 % (0.0-2.0); EOSINOPHILS % 6.4 % (0.0-5.0); HEMOGLOBIN. 7.8 g/dL (12.0-16.0); LYMPHOCYTES % 13.1 % (20.0-50.0); MEAN CORPUSCULAR HEMOGLOBIN 22.6 pg (28.0-32.0); MEAN CORPUSCULAR VOLUME 78.2 fL (81.0-99.0); MEAN PLATELET VOLUME 7.2 fl (7.4-10.4); MONOCYTES % 4.3 % (2.0-8.0); NEUTROPHILS % 75.8 % (40.0-76.0); PLATELET 236 x1000/uL (130-400); RED BLOOD CELL COUNT 3.45 mill/uL (4.2-5.4); RED CELL DISTRIBUTION WIDTH 19.5 % (11.6-14.6)
[2020-01-13] VITALS: BP 135/51
[2020-01-13] MEDS ORDERED: HEPARIN SODIUM 1,000 UNIT/1ML VIAL IV NR (00:45)
[2020-01-13 04:00] VITALS: BP 111/48
[2020-01-13] MEDS: ACETAMINOPHEN 650MG/20.3ML UDC GT PRN ×2 (05:46→20:11)
[2020-01-13] MEDS: INSULIN LISPRO 100 UNITS/ML SUBCUT SCH ×4 (05:52→20:20)
[2020-01-13] MEDS: SODIUM CHLORIDE 0.9% INJ 3ML FLUSH IVF SCH ×3 (05:53→22:00)
[2020-01-13 08:27] LABS: HEMATOCRIT. 30.6 % (36.0-48.0); HEMOGLOBIN. 8.8 g/dL (12.0-16.0); MEAN CORPUSCULAR HEMOGLOBIN 22.4 pg (28.0-32.0); MEAN CORPUSCULAR VOLUME 78.2 fL (81.0-99.0); MEAN PLATELET VOLUME 7.4 fl (7.4-10.4); PLATELET 176 x1000/uL (130-400); RED BLOOD CELL COUNT 3.92 mill/uL (4.2-5.4); RED CELL DISTRIBUTION WIDTH 19.3 % (11.6-14.6)
[2020-01-13 12:00] VITALS: BP 137/78
[2020-01-13] MEDS: BLOOD SUGAR DIAGNOSTIC STRIP TEST SCH ×3 (12:49→20:11)
[2020-01-13] MEDS: MEROPENEM 1,000 MG in SODIUM CHLORIDE 0.9% 100 ML IV SCH (13:20)
[2020-01-13 15:39] LABS: CLARITY URINE TURBID (CLEAR); COLOR URINE ORANGE (YELLOW); KETONES URINE NEGATIVE (NEGATIVE); LEUKOCYTE ESTERASE URINE 2+ (NEGATIVE); NITRITE URINE POSITIVE (NEGATIVE); OCCULT BLOOD URINE 1+ (NEGATIVE); PROTEIN URINE 3+ (NEGATIVE); SPECIFIC GRAVITY URINE 1.036 (1.005-1.030)
[2020-01-13 19:00] LABS: PLATELET ESTIMATE NORMAL
[2020-01-13 20:00] VITALS: BP 107/41
[2020-01-13] MEDS: EPOETIN ALFA 10000UNITS/ML VIAL SUBCUT SCH (20:11)
[2020-01-13] MEDS ORDERED: SULFAMETHOXAZOLE XX SCH (23:45)
[2020-01-13] MEDS ORDERED: TRIMETHOPRIM XX SCH (23:45)
[2020-01-14] VITALS: BP 145/50
[2020-01-14] MEDS: DEXT 5% IV SCH ×3 (00:36→17:00)
[2020-01-14] MEDS: SULFAMETHOXAZOLE IV SCH ×3 (00:36→17:00)
[2020-01-14] MEDS: WATER IV SCH ×3 (00:36→17:00)
[2020-01-14] MEDS: TRIMETHOPRIM IV SCH ×3 (00:36→17:00)
[2020-01-14 04:00] VITALS: BP 133/41
[2020-01-14] MEDS: BLOOD SUGAR DIAGNOSTIC STRIP TEST SCH ×4 (06:09→21:24)
[2020-01-14] MEDS: INSULIN LISPRO 100 UNITS/ML SUBCUT SCH ×4 (06:09→21:00)
[2020-01-14] MEDS: SODIUM CHLORIDE 0.9% INJ 3ML FLUSH IVF SCH ×3 (06:15→21:25)
[2020-01-14 08:00] VITALS: BP 131/53
[2020-01-14 12:00] VITALS: BP 147/64
[2020-01-14 12:59] LABS: BASOPHILS % 0.6 % (0.0-2.0); HEMATOCRIT. 29.7 % (36.0-48.0); HEMOGLOBIN. 8.7 g/dL (12.0-16.0); LYMPHOCYTES % 17.5 % (20.0-50.0); MEAN CORPUSCULAR HEMOGLOBIN 23.1 pg (28.0-32.0); MEAN CORPUSCULAR VOLUME 79.2 fL (81.0-99.0); MEAN PLATELET VOLUME 7.8 fl (7.4-10.4); MONOCYTES % 4.8 % (2.0-8.0); NEUTROPHILS % 70.1 % (40.0-76.0); PLATELET 173 x1000/uL (130-400); RED BLOOD CELL COUNT 3.76 mill/uL (4.2-5.4); RED CELL DISTRIBUTION WIDTH 19.3 % (11.6-14.6)
[2020-01-14] MEDS ORDERED: VANCOMYCIN 500 MG PREMIX 100 ML IV SCH (14:00)
[2020-01-14] MEDS: MEROPENEM 1,000 MG in SODIUM CHLORIDE 0.9% 100 ML IV SCH (14:00)
[2020-01-14] MEDS ORDERED: LEVOFLOXACIN 750MG PREMIX 150 ML IV SCH (15:00)
[2020-01-14 16:00] VITALS: BP 132/69
[2020-01-14 20:00] VITALS: BP 120/88
[2020-01-15] VITALS (36 sets, daily range): BP systolic 60–148; BP diastolic 27–71
[2020-01-15] MEDS: WATER IV SCH ×3 (01:00→18:40)
[2020-01-15] MEDS: DEXT 5% IV SCH ×3 (01:00→18:40)
[2020-01-15] MEDS: TRIMETHOPRIM IV SCH ×3 (01:00→18:40)
[2020-01-15] MEDS: SULFAMETHOXAZOLE IV SCH ×3 (01:00→18:40)
[2020-01-15] MEDS: SODIUM CHLORIDE 0.9% INJ 3ML FLUSH IVF SCH ×3 (06:00→21:20)
[2020-01-15] MEDS: INSULIN LISPRO 100 UNITS/ML SUBCUT SCH ×3 (06:37→21:20)
[2020-01-15] MEDS: BLOOD SUGAR DIAGNOSTIC STRIP TEST SCH ×3 (06:37→21:19)
[2020-01-15] MEDS ORDERED: LEVOFLOXACIN 750MG PREMIX 150 ML IV SCH ×2 (09:00)
[2020-01-15 09:42] LABS: HEMATOCRIT. 31.3 % (36.0-48.0); HEMOGLOBIN. 9.1 g/dL (12.0-16.0); MEAN CORPUSCULAR HEMOGLOBIN 22.8 pg (28.0-32.0); MEAN CORPUSCULAR VOLUME 78.3 fL (81.0-99.0); MEAN PLATELET VOLUME 7.2 fl (7.4-10.4); PLATELET 137 x1000/uL (130-400); RED CELL DISTRIBUTION WIDTH 19.6 % (11.6-14.6)
[2020-01-15] MEDS ORDERED: SODIUM CHLORIDE 0.9% 500 ML IV ONE (13:45)
[2020-01-15] MEDS: NOREPINEPHRINE 8 MG in DEXT 5% WATER 242 ML IV PRN ×2 (14:59→20:58)
[2020-01-15 16:06] LABS: BG BASE EXCESS -3.3 mmol/L (-2.0-2.0); BG CARBOXYHEMOGLOBIN 0.1 % (0.5-1.5); BG DEOXYHEMOGLOBIN 6.7 % (0.0-5.0); BG FRACTION INSPIRED OXYGEN 21; BG METHEMOGLOBIN 0.2 % (0.0-1.5); BG OXYGEN SATURATION 93.3 % (92.0-98.5); BG PCO2 29.9 mmHg (35.0-45.0); BG PH 7.444 (7.350-7.450); BG PO2 68.6 mmHg (75.0-100.0); BG SAMPLE SITE LEFT RADIAL; BG VENT MODE ROOM AIR
[2020-01-15] MEDS: MEROPENEM 1,000 MG in SODIUM CHLORIDE 0.9% 100 ML IV SCH (17:42)
[2020-01-15] MEDS: VANCOMYCIN HCL 1000 MG/20 ML ORAL PO SCH (18:00)
[2020-01-15] MEDS: METRONIDAZOLE 500 MG PREMIX 100 ML IV SCH (21:19)
[2020-01-16] VITALS (95 sets, daily range): BP systolic 79–148; BP diastolic 36–83
[2020-01-16] MEDS: DEXT 5% IV SCH ×3 (01:09→19:52)
[2020-01-16] MEDS: SULFAMETHOXAZOLE IV SCH ×3 (01:09→19:52)
[2020-01-16] MEDS: TRIMETHOPRIM IV SCH ×3 (01:09→19:52)
[2020-01-16] MEDS: WATER IV SCH ×3 (01:09→19:52)
[2020-01-16] MEDS: NOREPINEPHRINE 8 MG in DEXT 5% WATER 242 ML IV PRN (04:32)
[2020-01-16] MEDS: VANCOMYCIN HCL 1000 MG/20 ML ORAL PO SCH ×4 (05:04→18:25)
[2020-01-16] MEDS: SODIUM CHLORIDE 0.9% INJ 3ML FLUSH IVF SCH ×3 (05:04→21:32)
[2020-01-16 07:14] LABS: HEMATOCRIT. 30.4 % (36.0-48.0); HEMOGLOBIN. 8.7 g/dL (12.0-16.0); MEAN CORPUSCULAR HEMOGLOBIN 22.4 pg (28.0-32.0); MEAN CORPUSCULAR VOLUME 78.1 fL (81.0-99.0); MEAN PLATELET VOLUME 8.5 fl (7.4-10.4); PLATELET 173 x1000/uL (130-400); RED BLOOD CELL COUNT 3.89 mill/uL (4.2-5.4); RED CELL DISTRIBUTION WIDTH 20.6 % (11.6-14.6)
[2020-01-16] MEDS: BLOOD SUGAR DIAGNOSTIC STRIP TEST SCH ×3 (07:50→18:11)
[2020-01-16] MEDS: INSULIN LISPRO 100 UNITS/ML SUBCUT SCH ×3 (08:20→18:00)
[2020-01-16 08:43] LABS: NUCLEATED RED BLOOD CELLS 5 /100 WBC; PLATELET ESTIMATE NORMAL
[2020-01-16] MEDS: METRONIDAZOLE 500 MG PREMIX 100 ML IV SCH ×2 (09:28→21:32)
[2020-01-16 10:35] LABS: NUCLEATED RED BLOOD CELLS 8 /100 WBC
[2020-01-16 10:37] LABS: PLATELET ESTIMATE NORMAL
[2020-01-16 12:13] LABS: PHOSPHORUS 2.5 mg/dL (2.5-4.9)
[2020-01-16] MEDS ORDERED: ALTEPLASE 2MG/VIAL ITC NR (14:30)
[2020-01-16] MEDS ORDERED: ALTEPLASE 2MG/VIAL ITC ONE (14:45)
[2020-01-16] MEDS: ACETYLCYSTEINE 100MG/ML 10% VIAL 4ML INH SCH (16:04)
[2020-01-16] MEDS: IPRATROPIUM/ALBUTEROL 0.5-3(2.5)MG/3ML NEB HHN SCH (20:59)
[2020-01-16] MEDS ORDERED: TOTAL PARENTERAL NUTRITION 1,300 ML IV SCH (21:00)
[2020-01-16] MEDS ORDERED: VANCOMYCIN 500 MG PREMIX 100 ML IV NR (21:00)
[2020-01-17] VITALS (89 sets, daily range): BP systolic 75–149; BP diastolic 23–111
[2020-01-17] MEDS: INSULIN LISPRO 100 UNITS/ML SUBCUT SCH ×5 (00:07→23:35)
[2020-01-17] MEDS: VANCOMYCIN HCL 1000 MG/20 ML ORAL PO SCH ×5 (00:09→23:34)
[2020-01-17] MEDS: BLOOD SUGAR DIAGNOSTIC STRIP TEST SCH ×5 (00:09→23:22)
[2020-01-17] MEDS: NOREPINEPHRINE 8 MG in DEXT 5% WATER 242 ML IV PRN ×2 (00:21→16:52)
[2020-01-17] MEDS: IPRATROPIUM/ALBUTEROL 0.5-3(2.5)MG/3ML NEB HHN SCH ×4 (00:27→20:32)
[2020-01-17] MEDS: ACETYLCYSTEINE 100MG/ML 10% VIAL 4ML INH SCH ×3 (00:27→14:00)
[2020-01-17] MEDS: WATER IV SCH ×3 (02:14→17:05)
[2020-01-17] MEDS: SULFAMETHOXAZOLE IV SCH ×3 (02:14→17:05)
[2020-01-17] MEDS: DEXT 5% IV SCH ×3 (02:14→17:05)
[2020-01-17] MEDS: TRIMETHOPRIM IV SCH ×3 (02:14→17:05)
[2020-01-17] MEDS: SODIUM CHLORIDE 0.9% INJ 3ML FLUSH IVF SCH ×3 (05:16→22:11)
[2020-01-17 07:32] LABS: MEAN CORPUSCULAR HEMOGLOBIN 22.3 pg (28.0-32.0); MEAN CORPUSCULAR VOLUME 76.5 fL (81.0-99.0); MEAN PLATELET VOLUME 8.8 fl (7.4-10.4); PLATELET 167 x1000/uL (130-400); RED BLOOD CELL COUNT 3.13 mill/uL (4.2-5.4); RED CELL DISTRIBUTION WIDTH 20.7 % (11.6-14.6)
[2020-01-17] MEDS ORDERED: POTASSIUM CHLORIDE 20MEQ/PACKET PO SCH (08:00)
[2020-01-17 08:31] LABS: NUCLEATED RED BLOOD CELLS 5 /100 WBC
[2020-01-17 08:32] LABS: PLATELET ESTIMATE NORMAL
[2020-01-17] MEDS: METRONIDAZOLE 500 MG PREMIX 100 ML IV SCH ×2 (08:59→20:26)
[2020-01-17] MEDS ORDERED: EPOETIN ALFA 4000UNITS/ML VIAL SUBCUT SCH (11:00)
[2020-01-17] MEDS ORDERED: ALBUMIN HUMAN 12.5GM/50ML (25%) IV SCH (14:00)
[2020-01-17 16:49] LABS: HEMATOCRIT 41.4 % (36.0-48.0); HEMOGLOBIN 12.5 g/dL (12.0-16.0)
[2020-01-17] MEDS: LEVOFLOXACIN 500MG PREMIX 100 ML IV SCH (17:07)
[2020-01-17] MEDS ORDERED: TOTAL PARENTERAL NUTRITION 1,300 ML IV SCH ×2 (20:00→21:00)
[2020-01-17] MEDS: FAT EMULSIONS 250 ML IV SCH (21:58)
[2020-01-18] VITALS (47 sets, daily range): BP systolic 71–128; BP diastolic 33–75
[2020-01-18] MEDS: ACETYLCYSTEINE 100MG/ML 10% VIAL 4ML INH SCH ×3 (01:00→14:06)
[2020-01-18] MEDS: IPRATROPIUM/ALBUTEROL 0.5-3(2.5)MG/3ML NEB HHN SCH ×4 (01:00→20:09)
[2020-01-18] MEDS: TRIMETHOPRIM IV SCH ×3 (01:26→17:00)
[2020-01-18] MEDS: DEXT 5% IV SCH ×3 (01:26→17:00)
[2020-01-18] MEDS: SULFAMETHOXAZOLE IV SCH ×3 (01:26→17:00)
[2020-01-18] MEDS: WATER IV SCH ×3 (01:26→17:00)
[2020-01-18] MEDS: BLOOD SUGAR DIAGNOSTIC STRIP TEST SCH ×3 (05:11→17:46)
[2020-01-18] MEDS: SODIUM CHLORIDE 0.9% INJ 3ML FLUSH IVF SCH ×3 (05:11→21:25)
[2020-01-18] MEDS: VANCOMYCIN HCL 1000 MG/20 ML ORAL PO SCH ×4 (05:15→23:29)
[2020-01-18] MEDS: INSULIN LISPRO 100 UNITS/ML SUBCUT SCH ×4 (05:15→21:25)
[2020-01-18 05:59] LABS: HEMATOCRIT. 35.3 % (36.0-48.0); HEMOGLOBIN. 11.5 g/dL (12.0-16.0); MEAN CORPUSCULAR HEMOGLOBIN 25.2 pg (28.0-32.0); MEAN CORPUSCULAR VOLUME 77.1 fL (81.0-99.0); MEAN PLATELET VOLUME 8.5 fl (7.4-10.4); PLATELET 70 x1000/uL (130-400); RED BLOOD CELL COUNT 4.58 mill/uL (4.2-5.4); RED CELL DISTRIBUTION WIDTH 19.1 % (11.6-14.6)
[2020-01-18] MEDS: METRONIDAZOLE 500 MG PREMIX 100 ML IV SCH ×2 (08:41→21:24)
[2020-01-18 09:41] LABS: NUCLEATED RED BLOOD CELLS 7 /100 WBC; PLATELET ESTIMATE DECREASED
[2020-01-18] MEDS: ACETAMINOPHEN 650MG/20.3ML UDC GT PRN (10:31)
[2020-01-18] MEDS ORDERED: DEXTROSE 50% WATER 50ML SYRINGE IV PRN (19:00)
[2020-01-18] MEDS ORDERED: TOTAL PARENTERAL NUTRITION 1,300 ML IV SCH (21:00)
[2020-01-18] MEDS ORDERED: BLOOD SUGAR DIAGNOSTIC STRIP TEST SCH (21:00)
[2020-01-18] MEDS ORDERED: INSULIN LISPRO 100 UNITS/ML SUBCUT SCH (21:00)
[2020-01-19] VITALS (73 sets, daily range): BP systolic 55–133; BP diastolic 20–85
[2020-01-19] MEDS: IPRATROPIUM/ALBUTEROL 0.5-3(2.5)MG/3ML NEB HHN SCH ×5 (02:01→20:47)
[2020-01-19] MEDS: ACETYLCYSTEINE 100MG/ML 10% VIAL 4ML INH SCH ×4 (02:01→21:12)
[2020-01-19] MEDS: INSULIN LISPRO 100 UNITS/ML SUBCUT SCH ×4 (03:00→23:16)
[2020-01-19] MEDS: BLOOD SUGAR DIAGNOSTIC STRIP TEST SCH ×4 (03:00→23:23)
[2020-01-19] MEDS: VANCOMYCIN HCL 1000 MG/20 ML ORAL PO SCH ×4 (05:12→23:17)
[2020-01-19] MEDS: SODIUM CHLORIDE 0.9% INJ 3ML FLUSH IVF SCH ×3 (05:12→21:01)
[2020-01-19 05:55] LABS: HEMATOCRIT. 30.1 % (36.0-48.0); HEMOGLOBIN. 9.4 g/dL (12.0-16.0); PLATELET 111 x1000/uL (130-400); RED BLOOD CELL COUNT 3.76 mill/uL (4.2-5.4); RED CELL DISTRIBUTION WIDTH 18.8 % (11.6-14.6)
[2020-01-19 06:25] LABS: PHOSPHORUS 0.2 mg/dL (2.5-4.9)
[2020-01-19] MEDS ORDERED: SODIUM PHOS,M-BASIC-D-BASIC 20 MM in DEXT 5% WATER 243.3333 ML IV SCH (09:00)
[2020-01-19 10:01] LABS: NUCLEATED RED BLOOD CELLS 2 /100 WBC; PLATELET ESTIMATE SLIGHTLY DECREASED
[2020-01-19] MEDS: METRONIDAZOLE 500 MG PREMIX 100 ML IV SCH ×2 (10:02→21:00)
[2020-01-19] MEDS: NOREPINEPHRINE 8 MG in DEXT 5% WATER 242 ML IV PRN ×2 (10:05→22:52)
[2020-01-19] MEDS: LEVOFLOXACIN 500MG PREMIX 100 ML IV SCH (10:41)
[2020-01-19] MEDS: SUCRALFATE 1 G/10 ML UDC PO SCH ×3 (12:50→23:17)
[2020-01-19] MEDS: PANTOPRAZOLE SODIUM 40 MG/VIAL IV SCH ×2 (12:50→21:00)
[2020-01-19] MEDS ORDERED: TOTAL PARENTERAL NUTRITION 1,300 ML IV SCH (21:00)
[2020-01-19] MEDS: FAT EMULSIONS 250 ML IV SCH (21:01)
[2020-01-19 21:26] LABS: HEMATOCRIT 32.7 % (36.0-48.0)
[2020-01-20] VITALS (99 sets, daily range): BP systolic 74–146; BP diastolic 26–90
[2020-01-20] MEDS: IPRATROPIUM/ALBUTEROL 0.5-3(2.5)MG/3ML NEB HHN SCH ×6 (00:36→21:28)
[2020-01-20] MEDS: VANCOMYCIN HCL 1000 MG/20 ML ORAL PO SCH ×4 (05:19→23:39)
[2020-01-20] MEDS: SODIUM CHLORIDE 0.9% INJ 3ML FLUSH IVF SCH ×3 (05:19→22:13)
[2020-01-20] MEDS: BLOOD SUGAR DIAGNOSTIC STRIP TEST SCH ×4 (05:19→23:35)
[2020-01-20] MEDS: INSULIN LISPRO 100 UNITS/ML SUBCUT SCH ×4 (05:19→23:35)
[2020-01-20] MEDS: SUCRALFATE 1 G/10 ML UDC PO SCH ×4 (05:21→23:37)
[2020-01-20 05:54] LABS: HEMATOCRIT. 28.9 % (36.0-48.0); HEMOGLOBIN. 9.1 g/dL (12.0-16.0); MEAN CORPUSCULAR HEMOGLOBIN 24.7 pg (28.0-32.0); MEAN PLATELET VOLUME 7.9 fl (7.4-10.4); PLATELET 132 x1000/uL (130-400); RED CELL DISTRIBUTION WIDTH 19.8 % (11.6-14.6)
[2020-01-20 06:06] LABS: PHOSPHORUS 1.7 mg/dL (2.5-4.9)
[2020-01-20] MEDS: ACETYLCYSTEINE 100MG/ML 10% VIAL 4ML INH SCH ×2 (09:05→16:57)
[2020-01-20] MEDS: METRONIDAZOLE 500 MG PREMIX 100 ML IV SCH ×2 (09:34→20:06)
[2020-01-20] MEDS: PANTOPRAZOLE SODIUM 40 MG/VIAL IV SCH ×2 (09:34→20:42)
[2020-01-20] MEDS ORDERED: SODIUM PHOS,M-BASIC-D-BASIC 20 MM in DEXT 5% WATER 243.3333 ML IV SCH (11:00)
[2020-01-20] MEDS: NOREPINEPHRINE 8 MG in DEXT 5% WATER 242 ML IV PRN ×2 (12:59→23:41)
[2020-01-20 13:49] LABS: NUCLEATED RED BLOOD CELLS 1 /100 WBC
[2020-01-20 13:50] LABS: PLATELET ESTIMATE NORMAL
[2020-01-20] MEDS: MIDODRINE HCL 5MG TABLET GT SCH (17:43)
[2020-01-20] MEDS: TOTAL PARENTERAL NUTRITION 1,300 ML IV SCH (20:47)
[2020-01-21] VITALS (96 sets, daily range): BP systolic 67–146; BP diastolic 31–107
[2020-01-21] MEDS: ACETYLCYSTEINE 100MG/ML 10% VIAL 4ML INH SCH ×3 (00:13→16:22)
[2020-01-21] MEDS: IPRATROPIUM/ALBUTEROL 0.5-3(2.5)MG/3ML NEB HHN SCH ×6 (00:13→21:02)
[2020-01-21] MEDS: INSULIN LISPRO 100 UNITS/ML SUBCUT SCH ×4 (05:43→23:15)
[2020-01-21] MEDS: BLOOD SUGAR DIAGNOSTIC STRIP TEST SCH ×4 (05:43→23:14)
[2020-01-21] MEDS: SODIUM CHLORIDE 0.9% INJ 3ML FLUSH IVF SCH ×3 (05:43→22:32)
[2020-01-21] MEDS: VANCOMYCIN HCL 1000 MG/20 ML ORAL PO SCH (05:44)
[2020-01-21] MEDS: SUCRALFATE 1 G/10 ML UDC PO SCH ×4 (05:44→23:14)
[2020-01-21 06:28] LABS: HEMATOCRIT. 26.9 % (36.0-48.0); HEMOGLOBIN. 8.4 g/dL (12.0-16.0); MEAN CORPUSCULAR HEMOGLOBIN 24.6 pg (28.0-32.0); MEAN CORPUSCULAR VOLUME 78.6 fL (81.0-99.0); RED BLOOD CELL COUNT 3.42 mill/uL (4.2-5.4); RED CELL DISTRIBUTION WIDTH 20.3 % (11.6-14.6)
[2020-01-21] MEDS: PANTOPRAZOLE SODIUM 40 MG/VIAL IV SCH ×2 (08:58→20:35)
[2020-01-21] MEDS: MIDODRINE HCL 5MG TABLET GT SCH ×3 (08:58→22:31)
[2020-01-21] MEDS: METRONIDAZOLE 500 MG PREMIX 100 ML IV SCH (08:58)
[2020-01-21] MEDS ORDERED: ALBUMIN HUMAN 25GM/100ML (25%) IV SCH (10:15)
[2020-01-21 10:29] LABS: PLATELET ESTIMATE DECREASED
[2020-01-21 10:30] LABS: PLATELET 113 x1000/uL (130-400)
[2020-01-21] MEDS: TOTAL PARENTERAL NUTRITION 1,300 ML IV SCH ×2 (20:36→21:00)
[2020-01-21] MEDS: NOREPINEPHRINE 8 MG in DEXT 5% WATER 242 ML IV PRN (20:44)
[2020-01-22] VITALS (106 sets, daily range): BP systolic 68–156; BP diastolic 26–115
[2020-01-22] MEDS: IPRATROPIUM/ALBUTEROL 0.5-3(2.5)MG/3ML NEB HHN SCH ×6 (00:20→20:14)
[2020-01-22] MEDS: ACETYLCYSTEINE 100MG/ML 10% VIAL 4ML INH SCH ×2 (00:20→07:55)
[2020-01-22 04:45] LABS: HEMATOCRIT. 26.2 % (36.0-48.0); HEMOGLOBIN. 8.1 g/dL (12.0-16.0); MEAN CORPUSCULAR HEMOGLOBIN 24.4 pg (28.0-32.0); MEAN CORPUSCULAR VOLUME 78.4 fL (81.0-99.0); MEAN PLATELET VOLUME 7.6 fl (7.4-10.4); PLATELET 131 x1000/uL (130-400); RED BLOOD CELL COUNT 3.34 mill/uL (4.2-5.4); RED CELL DISTRIBUTION WIDTH 20.8 % (11.6-14.6)
[2020-01-22] MEDS: INSULIN LISPRO 100 UNITS/ML SUBCUT SCH ×3 (06:00→18:00)
[2020-01-22] MEDS: BLOOD SUGAR DIAGNOSTIC STRIP TEST SCH ×3 (06:40→18:15)
[2020-01-22] MEDS: SUCRALFATE 1 G/10 ML UDC PO SCH ×3 (06:40→18:39)
[2020-01-22] MEDS: MIDODRINE HCL 5MG TABLET GT SCH ×3 (06:40→22:01)
[2020-01-22] MEDS: SODIUM CHLORIDE 0.9% INJ 3ML FLUSH IVF SCH ×3 (06:41→22:09)
[2020-01-22 07:20] LABS: PLATELET ESTIMATE NORMAL
[2020-01-22] MEDS: PANTOPRAZOLE SODIUM 40 MG/VIAL IV SCH ×2 (09:48→22:02)
[2020-01-22] MEDS: NOREPINEPHRINE 8 MG in DEXT 5% WATER 242 ML IV PRN (15:45)
[2020-01-22] MEDS ORDERED: FAT EMULSIONS 250 ML IV SCH (21:00)
[2020-01-22] MEDS: TOTAL PARENTERAL NUTRITION 1,300 ML IV SCH (22:03)
[2020-01-23] VITALS (98 sets, daily range): BP systolic 40–167; BP diastolic 19–82
[2020-01-23] MEDS: IPRATROPIUM/ALBUTEROL 0.5-3(2.5)MG/3ML NEB HHN SCH ×6 (00:15→20:27)
[2020-01-23] MEDS: ACETYLCYSTEINE 100MG/ML 10% VIAL 4ML INH SCH ×3 (00:15→20:27)
[2020-01-23] MEDS: INSULIN LISPRO 100 UNITS/ML SUBCUT SCH ×4 (01:22→18:00)
[2020-01-23] MEDS: MIDODRINE HCL 5MG TABLET GT SCH ×3 (06:19→21:21)
[2020-01-23] MEDS: SUCRALFATE 1 G/10 ML UDC PO SCH ×4 (06:19→18:38)
[2020-01-23] MEDS: BLOOD SUGAR DIAGNOSTIC STRIP TEST SCH ×4 (06:21→18:40)
[2020-01-23] MEDS: SODIUM CHLORIDE 0.9% INJ 3ML FLUSH IVF SCH ×3 (06:21→21:21)
[2020-01-23] MEDS: NOREPINEPHRINE 8 MG in DEXT 5% WATER 242 ML IV PRN ×4 (09:06→21:20)
[2020-01-23] MEDS: PANTOPRAZOLE SODIUM 40 MG/VIAL IV SCH ×2 (09:15→21:20)
[2020-01-23] MEDS: TOTAL PARENTERAL NUTRITION 1,300 ML IV SCH (21:24)
[2020-01-24] VITALS (76 sets, daily range): BP systolic 85–137; BP diastolic 31–82
[2020-01-24] MEDS: IPRATROPIUM/ALBUTEROL 0.5-3(2.5)MG/3ML NEB HHN SCH ×6 (00:19→21:16)
[2020-01-24] MEDS: BLOOD SUGAR DIAGNOSTIC STRIP TEST SCH ×4 (00:30→18:19)
[2020-01-24] MEDS: SUCRALFATE 1 G/10 ML UDC PO SCH ×4 (00:30→18:18)
[2020-01-24] MEDS: INSULIN LISPRO 100 UNITS/ML SUBCUT SCH ×4 (01:12→18:00)
[2020-01-24] MEDS: NOREPINEPHRINE 8 MG in DEXT 5% WATER 242 ML IV PRN ×3 (06:28→18:30)
[2020-01-24] MEDS: MIDODRINE HCL 5MG TABLET GT SCH ×3 (06:29→20:57)
[2020-01-24] MEDS: SODIUM CHLORIDE 0.9% INJ 3ML FLUSH IVF SCH ×3 (06:29→20:58)
[2020-01-24] MEDS: ACETYLCYSTEINE 100MG/ML 10% VIAL 4ML INH SCH ×2 (08:27→16:29)
[2020-01-24] MEDS: PANTOPRAZOLE SODIUM 40 MG/VIAL IV SCH ×2 (09:13→20:55)
[2020-01-24 11:03] LABS: BASOPHILS % 0.4 % (0.0-2.0); EOSINOPHILS % 2.6 % (0.0-5.0); HEMATOCRIT. 30.1 % (36.0-48.0); HEMOGLOBIN. 9.2 g/dL (12.0-16.0); LYMPHOCYTES % 10.6 % (20.0-50.0); MEAN CORPUSCULAR HEMOGLOBIN 23.8 pg (28.0-32.0); MEAN CORPUSCULAR VOLUME 77.8 fL (81.0-99.0); MEAN PLATELET VOLUME 7.8 fl (7.4-10.4); MONOCYTES % 3.6 % (2.0-8.0); NEUTROPHILS % 82.8 % (40.0-76.0); PLATELET 96 x1000/uL (130-400); RED BLOOD CELL COUNT 3.87 mill/uL (4.2-5.4)
[2020-01-24] MEDS: FAT EMULSIONS 250 ML IV SCH (20:56)
[2020-01-24] MEDS: TOTAL PARENTERAL NUTRITION 1,300 ML IV SCH (20:57)
[2020-01-25] VITALS (90 sets, daily range): BP systolic 82–138; BP diastolic 33–101
[2020-01-25] MEDS: BLOOD SUGAR DIAGNOSTIC STRIP TEST SCH ×4 (00:07→18:11)
[2020-01-25] MEDS: SUCRALFATE 1 G/10 ML UDC PO SCH ×5 (00:21→23:50)
[2020-01-25] MEDS: IPRATROPIUM/ALBUTEROL 0.5-3(2.5)MG/3ML NEB HHN SCH ×6 (01:41→20:40)
[2020-01-25] MEDS: ACETYLCYSTEINE 100MG/ML 10% VIAL 4ML INH SCH ×3 (01:42→16:40)
[2020-01-25] MEDS: SODIUM CHLORIDE 0.9% INJ 3ML FLUSH IVF SCH ×3 (05:39→22:50)
[2020-01-25] MEDS: MIDODRINE HCL 5MG TABLET GT SCH ×3 (06:15→23:07)
[2020-01-25] MEDS: INSULIN LISPRO 100 UNITS/ML SUBCUT SCH ×4 (06:17→18:00)
[2020-01-25 06:46] LABS: MEAN CORPUSCULAR HEMOGLOBIN 24.9 pg (28.0-32.0); MEAN CORPUSCULAR VOLUME 77.5 fL (81.0-99.0); MEAN PLATELET VOLUME 7.6 fl (7.4-10.4); PLATELET 113 x1000/uL (130-400); RED BLOOD CELL COUNT 3.23 mill/uL (4.2-5.4)
[2020-01-25] MEDS: PANTOPRAZOLE SODIUM 40 MG/VIAL IV SCH ×2 (09:38→21:17)
[2020-01-25 10:32] LABS: PLATELET ESTIMATE SLIGHTLY DECREASED
[2020-01-25] MEDS: NOREPINEPHRINE 8 MG in DEXT 5% WATER 242 ML IV PRN (11:07)
[2020-01-25] MEDS ORDERED: ALBUMIN HUMAN 12.5GM/50ML (25%) IV NR (14:30)
[2020-01-25] MEDS ORDERED: ALTEPLASE 2MG/VIAL ITC NR (15:45)
[2020-01-25] MEDS: LEVOTHYROXINE SODIUM 100 MCG/ VIAL IV SCH (18:25)
[2020-01-25] MEDS: TOTAL PARENTERAL NUTRITION 1,300 ML IV SCH (21:18)
[2020-01-26] VITALS (64 sets, daily range): BP systolic 79–169; BP diastolic 31–91
[2020-01-26] MEDS: IPRATROPIUM/ALBUTEROL 0.5-3(2.5)MG/3ML NEB HHN SCH ×6 (00:09→20:01)
[2020-01-26] MEDS: ACETYLCYSTEINE 100MG/ML 10% VIAL 4ML INH SCH ×3 (00:09→16:34)
[2020-01-26] MEDS: SUCRALFATE 1 G/10 ML UDC PO SCH ×3 (06:00→18:49)
[2020-01-26] MEDS: MIDODRINE HCL 5MG TABLET GT SCH ×3 (06:00→22:25)
[2020-01-26] MEDS: SODIUM CHLORIDE 0.9% INJ 3ML FLUSH IVF SCH ×3 (06:00→22:00)
[2020-01-26 07:58] LABS: HEMATOCRIT. 23.8 % (36.0-48.0); HEMOGLOBIN. 7.5 g/dL (12.0-16.0); MEAN CORPUSCULAR HEMOGLOBIN 24.4 pg (28.0-32.0); MEAN CORPUSCULAR VOLUME 77.9 fL (81.0-99.0); MEAN PLATELET VOLUME 7.7 fl (7.4-10.4); PLATELET 83 x1000/uL (130-400); RED BLOOD CELL COUNT 3.06 mill/uL (4.2-5.4)
[2020-01-26] MEDS: BLOOD SUGAR DIAGNOSTIC STRIP TEST SCH ×4 (08:20→18:13)
[2020-01-26] MEDS: INSULIN LISPRO 100 UNITS/ML SUBCUT SCH ×4 (08:33→18:00)
[2020-01-26] MEDS: LEVOTHYROXINE SODIUM 100 MCG/ VIAL IV SCH (09:09)
[2020-01-26] MEDS: PANTOPRAZOLE SODIUM 40 MG/VIAL IV SCH ×2 (09:09→21:25)
[2020-01-26 09:33] LABS: PLATELET ESTIMATE DECREASED
[2020-01-26 10:36] LABS: BG BASE EXCESS -14.6 mmol/L (-2.0-2.0); BG CARBOXYHEMOGLOBIN 0.3 % (0.5-1.5); BG DEOXYHEMOGLOBIN 4.9 % (0.0-5.0); BG FRACTION INSPIRED OXYGEN 21; BG HCO3 ACT 10.7 mmol/L (22.0-26.0); BG METHEMOGLOBIN 0.8 % (0.0-1.5); BG PCO2 23.6 mmHg (35.0-45.0); BG PH 7.276 (7.350-7.450); BG PO2 92.4 mmHg (75.0-100.0); BG SAMPLE SITE LEFT RADIAL; BG TOTAL HEMOGLOBIN 7.9 g/dL (12.0-18.0); BG VENT MODE ROOM AIR
[2020-01-26] MEDS ORDERED: CEFTRIAXONE 2 G in DEXTROSE 5% WATER 50 ML IV SCH (15:00)
[2020-01-26] MEDS: NOREPINEPHRINE 8 MG in DEXT 5% WATER 242 ML IV PRN (15:28)
[2020-01-26] MEDS ORDERED: ALBUMIN HUMAN 25GM/500ML (5%) IV ONE (15:30)
[2020-01-26] MEDS ORDERED: AMIODARONE HCL 900 MG in DEXT 5% WATER 482 ML IV SCH (16:30)
[2020-01-26] MEDS ORDERED: ALBUMIN HUMAN 12.5GM/50ML (25%) IV NR (17:00)
[2020-01-26] MEDS ORDERED: ATROPINE SULFATE 1MG/10ML SYR ONE (19:56)
[2020-01-26] MEDS ORDERED: EPINEPHRINE 0.1MG/ML (1:10,000) 10ML SYR ONE (19:56)
[2020-01-26] MEDS ORDERED: SODIUM BICARBONATE 8.4% 1 MEQ/ML 50ML SYR IV ONE (19:56)
[2020-01-26] MEDS ORDERED: TOTAL PARENTERAL NUTRITION 1,300 ML IV SCH (21:00)
[2020-01-26] MEDS: FAT EMULSIONS 250 ML IV SCH (21:21)
[2020-01-27] VITALS (28 sets, daily range): BP systolic 58–164; BP diastolic 17–116
[2020-01-27] MEDS: IPRATROPIUM/ALBUTEROL 0.5-3(2.5)MG/3ML NEB HHN SCH ×4 (00:09→14:00)
[2020-01-27] MEDS: ACETYLCYSTEINE 100MG/ML 10% VIAL 4ML INH SCH ×2 (00:09→08:52)
[2020-01-27] MEDS: SUCRALFATE 1 G/10 ML UDC PO SCH ×3 (00:11→11:14)
[2020-01-27] MEDS: INSULIN LISPRO 100 UNITS/ML SUBCUT SCH ×3 (01:00→11:17)
[2020-01-27] MEDS: MIDODRINE HCL 5MG TABLET GT SCH (05:39)
[2020-01-27] MEDS: SODIUM CHLORIDE 0.9% INJ 3ML FLUSH IVF SCH ×2 (05:39→14:12)
[2020-01-27] MEDS: BLOOD SUGAR DIAGNOSTIC STRIP TEST SCH ×3 (05:40→11:14)
[2020-01-27 07:35] LABS: HEMOGLOBIN. 8.7 g/dL (12.0-16.0); MEAN CORPUSCULAR HEMOGLOBIN 26.7 pg (28.0-32.0); MEAN CORPUSCULAR VOLUME 79.5 fL (81.0-99.0); MEAN PLATELET VOLUME 8.4 fl (7.4-10.4); PLATELET 60 x1000/uL (130-400); RED BLOOD CELL COUNT 3.27 mill/uL (4.2-5.4)
[2020-01-27 08:26] LABS: PLATELET ESTIMATE DECREASED
[2020-01-27] MEDS: LEVOTHYROXINE SODIUM 100 MCG/ VIAL IV SCH (08:31)
[2020-01-27] MEDS: PANTOPRAZOLE SODIUM 40 MG/VIAL IV SCH (08:32)
[2020-01-27] MEDS ORDERED: POTASSIUM CHLORIDE 20MEQ/PACKET PO SCH (09:15)
[2020-01-27] MEDS ORDERED: RACEPINEPHRINE 2.25% 0.5ML NEB VIAL HHN PRN (09:45)
[2020-01-27 10:45] LABS: BG BASE EXCESS -11.5 mmol/L (-2.0-2.0); BG CARBOXYHEMOGLOBIN 0.9 % (0.5-1.5); BG DEOXYHEMOGLOBIN 0.2 % (0.0-5.0); BG FRACTION INSPIRED OXYGEN 100; BG HCO3 ACT 15.7 mmol/L (22.0-26.0); BG METHEMOGLOBIN 0.7 % (0.0-1.5); BG OXYGEN SATURATION 99.8 % (92.0-98.5); BG OXYHEMOGLOBIN 98.2 % (94.0-97.0); BG PCO2 42.8 mmHg (35.0-45.0); BG PH 7.183 (7.350-7.450); BG PO2 401.4 mmHg (75.0-100.0); BG SAMPLE SITE LEFT RADIAL; BG TIDAL VOLUME(mL) 500 mL; BG TOTAL HEMOGLOBIN 5.8 g/dL (12.0-18.0); BG VENT MODE VENT - A/C; BG VENT RATE 18 set
[2020-01-27] MEDS ORDERED: SODIUM BICARBONATE 8.4% 1 MEQ/ML 50ML SYR IV NR (11:00)
[2020-01-27] MEDS: NOREPINEPHRINE 8 MG in DEXT 5% WATER 242 ML IV PRN (11:24)
[2020-01-27] MEDS ORDERED: PHENYLEPHRINE 100 MG in DEXT 5% WATER 240 ML IV PRN (11:45)
[2020-01-27] MEDS ORDERED: NOREPINEPHRINE 32 MG in DEXT 5% WATER 218 ML IV PRN (13:00)
[2020-01-27] MEDS ORDERED: METRONIDAZOLE 500 MG PREMIX 100 ML IV SCH (15:00)
[2020-01-27] MEDS ORDERED: VANCOMYCIN 1,250 MG in DEXT 5% WATER 250 ML IV SCH (15:00)
[2020-01-27] MEDS ORDERED: EPINEPHRINE 10 MG in SODIUM CHLORIDE 0.9% 240 ML IV PRN (16:00)
[2020-01-27] MEDS ORDERED: TOTAL PARENTERAL NUTRITION 1,300 ML IV SCH (21:00)
== END 2020-01-27 15:36 | disposition expired | DRG 314 ==
LOC: ER 16:41 → MICUSO 21:14 → EDBEDREQ 21:16 → EDBEDREQSVC 21:16 → EDBEDREQTM 21:16 → ENRESERV 22:45 → 8WST 22:48 → CVICU 01-15 13:52
PROVIDERS: ADMIT Internal Medicine; ATTEND Internal Medicine
PROC: 30233N1 Transfusion of Nonautologous Red Blood Cells into Peripheral Vein, Percutaneous Approach (ICD-10-PCS; 2020-01-06)
PROC: 5A1D70Z Performance of Urinary Filtration, Intermittent, Less than 6 Hours Per Day (ICD-10-PCS; 2020-01-06)
PROC: 02PYX3Z Removal of Infusion Device from Great Vessel, External Approach (ICD-10-PCS; 2020-01-07)
PROC: 06HY33Z Insertion of Infusion Device into Lower Vein, Percutaneous Approach (ICD-10-PCS; 2020-01-08)
PROC: 5A1D70Z Performance of Urinary Filtration, Intermittent, Less than 6 Hours Per Day (ICD-10-PCS; 2020-01-08)
PROC: 5A1D70Z Performance of Urinary Filtration, Intermittent, Less than 6 Hours Per Day (ICD-10-PCS; 2020-01-10)
PROC: 5A1D70Z Performance of Urinary Filtration, Intermittent, Less than 6 Hours Per Day (ICD-10-PCS; 2020-01-12)
PROC: 5A1D70Z Performance of Urinary Filtration, Intermittent, Less than 6 Hours Per Day (ICD-10-PCS; 2020-01-14)
PROC: 5A1D70Z Performance of Urinary Filtration, Intermittent, Less than 6 Hours Per Day (ICD-10-PCS; 2020-01-16)
PROC: 5A1D70Z Performance of Urinary Filtration, Intermittent, Less than 6 Hours Per Day (ICD-10-PCS; 2020-01-17)
PROC: 5A1D70Z Performance of Urinary Filtration, Intermittent, Less than 6 Hours Per Day (ICD-10-PCS; 2020-01-19)
PROC: 5A1D70Z Performance of Urinary Filtration, Intermittent, Less than 6 Hours Per Day (ICD-10-PCS; 2020-01-22)
PROC: 5A1D70Z Performance of Urinary Filtration, Intermittent, Less than 6 Hours Per Day (ICD-10-PCS; 2020-01-25)
PROC: 06HY33Z Insertion of Infusion Device into Lower Vein, Percutaneous Approach (ICD-10-PCS; 2020-01-26)
PROC: B54BZZA Ultrasonography of Right Lower Extremity Veins, Guidance (ICD-10-PCS; 2020-01-26)
PROC: 02PYX3Z Removal of Infusion Device from Great Vessel, External Approach (ICD-10-PCS; 2020-01-26)
PROC: 5A1D70Z Performance of Urinary Filtration, Intermittent, Less than 6 Hours Per Day (ICD-10-PCS; 2020-01-26)
PROC: 5A12012 Performance of Cardiac Output, Single, Manual (ICD-10-PCS; principal; 2020-01-27)
PROC: 5A1935Z Respiratory Ventilation, Less than 24 Consecutive Hours (ICD-10-PCS; 2020-01-27)
PROC: 0BH17EZ Insertion of Endotracheal Airway into Trachea, Via Natural or Artificial Opening (ICD-10-PCS; 2020-01-27)
PROC: 5A1D70Z Performance of Urinary Filtration, Intermittent, Less than 6 Hours Per Day (ICD-10-PCS; 2020-01-27)
DX: T80.219A Unspecified infection due to central venous catheter, initial encounter (principal); A41.52 Sepsis due to Pseudomonas; L89.154 Pressure ulcer of sacral region, stage 4; E43 Unspecified severe protein-calorie malnutrition; N18.6 End stage renal disease; J96.01 Acute respiratory failure with hypoxia; J69.0 Pneumonitis due to inhalation of food and vomit; R65.21 Severe sepsis with septic shock; L89.013 Pressure ulcer of right elbow, stage 3; A41.51 Sepsis due to Escherichia coli [E. coli]; J15.1 Pneumonia due to Pseudomonas; A41.02 Sepsis due to Methicillin resistant Staphylococcus aureus; E87.0 Hyperosmolality and hypernatremia; G93.49 Other encephalopathy; I13.2 Hypertensive heart and chronic kidney disease with heart failure and with stage 5 chronic kidney disease, or end stage renal disease; M86.9 Osteomyelitis, unspecified; R47.01 Aphasia; K94.23 Gastrostomy malfunction; E87.1 Hypo-osmolality and hyponatremia; T82.41XA Breakdown (mechanical) of vascular dialysis catheter, initial encounter; B37.49 Other urogenital candidiasis; K22.10 Ulcer of esophagus without bleeding; B96.89 Other specified bacterial agents as the cause of diseases classified elsewhere; D64.9 Anemia, unspecified; E11.22 Type 2 diabetes mellitus with diabetic chronic kidney disease; E87.6 Hypokalemia; F03.90 Unspecified dementia, unspecified severity, without behavioral disturbance, psychotic disturbance, mood disturbance, and anxiety; I48.91 Unspecified atrial fibrillation; I50.9 Heart failure, unspecified; R47.02 Dysphasia; R19.7 Diarrhea, unspecified; I49.3 Ventricular premature depolarization; S81.819A Laceration without foreign body, unspecified lower leg, initial encounter; E11.69 Type 2 diabetes mellitus with other specified complication; M19.90 Unspecified osteoarthritis, unspecified site; Z20.828 Contact with and (suspected) exposure to other viral communicable diseases; Y83.8 Other surgical procedures as the cause of abnormal reaction of the patient, or of later complication, without mention of misadventure at the time of the procedure; Y82.8 Other medical devices associated with adverse incidents; Y84.8 Other medical procedures as the cause of abnormal reaction of the patient, or of later complication, without mention of misadventure at the time of the procedure; G47.10 Hypersomnia, unspecified; E83.39 Other disorders of phosphorus metabolism; E03.9 Hypothyroidism, unspecified; I46.9 Cardiac arrest, cause unspecified; Y71.2 Prosthetic and other implants, materials and accessory cardiovascular devices associated with adverse incidents; I69.398 Other sequelae of cerebral infarction; Z99.2 Dependence on renal dialysis; Z79.4 Long term (current) use of insulin; Z79.890 Hormone replacement therapy; Z79.899 Other long term (current) drug therapy; Z79.1 Long term (current) use of non-steroidal anti-inflammatories (NSAID); Z95.828 Presence of other vascular implants and grafts; Z87.19 Personal history of other diseases of the digestive system; Z86.711 Personal history of pulmonary embolism; Z68.28 Body mass index [BMI] 28.0-28.9, adult; Z87.01 Personal history of pneumonia (recurrent); Z86.718 Personal history of other venous thrombosis and embolism; Z90.49 Acquired absence of other specified parts of digestive tract; Z90.710 Acquired absence of both cervix and uterus; Y92.89 Other specified places as the place of occurrence of the external cause; R62.7 Adult failure to thrive; L89.629 Pressure ulcer of left heel, unspecified stage
CPT/HCPCS: 36415; 36580; 36589; 36600; 71045; 71250; 74018; 74176; 76937; 80048; 80053; 80061; 80076; 80202; 81003; 82040; 82270; 82375; 82533; 82805; 82962; 83036; 83605; 83735; 83930; 84100; 84134; 84145; 84443; 84478; 85014; 85018; 85025; 85651; 86140; 86850; 86900; 86920; 87015; 87045; 87070; 87077; 87106; 87186; 87427; 87449; 87635; 89055; 93005; 93306; 94640; 94667; 97161; 99291; C1752; C1769; C9113; J0282; J0461; J0696; J0885; J1200; J1644; J1815; J1956; J2185; J2370; J2543; J2997; J3370; J3490; J7050; J7060; J7608; P9016; P9047